=== PATIENT | female | born 1940 | race African-American/Black ===

== ENCOUNTER 2016-09-21 17:48 | Emergency (ER) | payer OTHER ==
[~2016-09-21] VITALS: Ht 142.2 cm; Wt 60.8 kg
--- NOTE | ~2016-09-21 | EKG ---
[place] [address] [facility] [address] [place] [address] ELECTROCARDIOGRAM REPORT Name: ROSE MARYZOYA FOSTEREN [facility] [id number] Admission: 09/21/16 Attend Phys: Discharge: 09/22/16 Date of : 38 Report #: [id number] THIS REPORT FOR: //name// [facility] ED Test Date: 2016-09-21 Test Time: 18:46:57 Pat Name: ZOYA BAZZI Department: Room: Gender: F Cardiovascular Specialist: Nile HUGHES : 1940 Requested By: Bhavik Church Order Number: [id number] MD: Tray Garcia Measurements Intervals [place] Rate: 116 P: -3 ME: 144 QRS: -31 QRSD: 73 T: -23 QT: 335 QTc: 466 Interpretive Statements Sinus tachycardia Atrial premature complexes Inferior infarct, age indeterminate Compared to ECG 07/21/2014 14:43:16 Atrial premature complex(es) now present Electronically Signed On 09-22-2016 15:09:23 CDT by Tray Garcia [email or web address] <ELECTRONICALLY SIGNED> By: Tray Garcia MD, [facility] 09/22/16 1509 1846 184 Tray Garcia MD, [facility] /EPI
[~2016-09-21 17:48] MED LIST: AMLODIPINE BESIL1 GM; DETROL LA2 MG PO; DETROL1 MG; GLYBURIDE 1.21.25 M1; HYDRALAZINE 2525 MG PO; HYDROCODONE-AP1 EAC6 PO; LANTUS SOL100 UNIT/1; LANTUS100 UNIT/M SUBQ; METFORMIN HCL500 MG PO; METOPROLOL SUCC50 MG; MOBIC15 MG; NEURONTIN 300300 M1 PO; NORVASC10 MG PO; PROTONIX40 M1 PO; TRAMADOL 50 MG50 MG PO
[2016-09-21 19:22] LABS: URINE BLOOD TRACE (Negative); URINE COLOR YELLOW; URINE GLUCOSE-RANDOM* NEGATIVE (Negative); URINE KETONES 1+ (Negative); URINE NITRITE POSITIVE (Negative); URINE PROTEIN (DIPSTICK) 1+ (Negative); URINE SPECIFIC GRAVITY 1.025 (1.003-1.035); URINE UROBILINOGEN 0.2 E.U./dl (0.2-1.0)
[2016-09-21 19:23] LABS: ICTOTEST (BILI CONFIRMATORY) Negative (Negative); URINE BILIRUBIN NEGATIVE (Negative)
[2016-09-21 20:09] LABS: CASTS None Seen /LPF (None Seen); CRYSTALS None Seen /LPF (None Seen); SQUAMOUS 0-3 Few /LPF (0-3)
[2016-09-21 20:10] LABS: BACTERIA >30 Many /HPF (None Seen); URINE RBC 0-2 Rare /HPF (0-2); URINE WBC 6-15 Few /HPF (0-5)
[2016-09-21 20:47] LABS: ABSOLUTE NEUTROPHILS 5.5 thou/uL (1.4-8.2); BASOPHILS 0.9 % (0.0-2.0); HEMATOCRIT 43.2 % (37.0-47.0); LYMPHOCYTES 19.9 % (24.0-44.0); MCH 26.9 pg (26.0-34.0); MCHC 32.4 g/dL (28.0-37.0); MCV 83.1 fL (80.0-100.0); MONOCYTES 11.7 % (1.0-8.0); PLATELET COUNT 318 thou/uL (150-400); POLYS 66.5 % (36.0-66.0); RDW 14.9 % (10.5-14.5); WBC 8.3 thou/uL (4.0-11.0)
[2016-09-21 20:49] LABS: MANUAL DIFF NO
[2016-09-21 20:57] LABS: ANION GAP 15 mmol/L (7-16); BUN 18 mg/dL (7-18); CALCIUM 10.2 mg/dL (8.5-10.1); CHLORIDE 104 mmol/L (98-107); CO2 21 mmol/L (21-32); CREATININE 0.7 mg/dL (0.6-1.0); GLUCOSE 96 mg/dL (74-106); POTASSIUM 4.4 mmol/L (3.5-5.1); SODIUM 140 mmol/L (136-145)
[2016-09-21 21:01] LABS: ALBUMIN 3.3 g/dL (3.4-5.0); ALKALINE PHOSPHATASE 105 U/L (46-116); NT-PRO BRAIN NAT PEPTIDE 276 pg/mL (<300); SGOT 32 U/L (15-37); SGPT 27 U/L (30-65); TOTAL BILIRUBIN 1.2 mg/dL (<0.1-1.0); TROPONIN-I < 0.04 ng/mL (<0.04-0.07)
[2016-09-21] MEDS ORDERED: KEFLEX500 MG PO (22:33)
== END 2016-09-22 00:06 | disposition home or self-care (01) ==
LOC: ER 17:48
PROVIDERS: Physician Assistant
DX: M54.6 Pain in thoracic spine (principal); M25.559 Pain in unspecified hip; N39.0 Urinary tract infection, site not specified; R94.6 Abnormal results of thyroid function studies; E11.9 Type 2 diabetes mellitus without complications; I10 Essential (primary) hypertension; M19.90 Unspecified osteoarthritis, unspecified site; Z90.89 Acquired absence of other organs; Z90.49 Acquired absence of other specified parts of digestive tract

== ENCOUNTER 2017-04-11 14:28 | Inpatient (IN) | payer OTHER ==
[~2017-04-11] VITALS: Ht 142.2 cm; Wt 62.7 kg
--- NOTE | ~2017-04-11 | HC ---
[facility] [place] [address] CONSULTATION Name: ZOYA BAZZI Room #: 503-P [facility] IN M.R.#: [id number] Admission: 04/11/17 Attend Phys: Jose G Flores MD Discharge: Date of : 39 Report #: [id number] THIS REPORT FOR: //name// CC: Jose G Flores [facility] unknown DATE OF SERVICE: 04/11/2017 HISTORY OF PRESENT ILLNESS: This is a 76-year-old -[place] female who had a fall at home transfer from wheelchair to the commode. She fell and hit her forehead. She notes that she "saw stars," but did not lose consciousness. She was on the floor for approximately 3 hours. She was diagnosed with closed head injury secondary to a fall and mild rhabdomyolysis. She has premorbid severe lower extremity neuropathy and is in the process of a neurosurgery workup as an outpatient. She has had an MRI of her lumbar spine and is scheduled to see a neurosurgeon on 04/28. She is premorbidly wheelchair bound, uses a manual wheelchair and has had a power wheelchair on order for the last 2 years. She had premorbidly been independent with wheelchair transfers up until admission. PAST MEDICAL HISTORY: As noted above. She has a history of diabetes mellitus, hypertension, urinary incontinence for which she uses pads and bilateral total knee replacements. MEDICATIONS: Please see the full medication listing. ALLERGIES: No known drug allergies. HABITS: No history of tobacco or alcohol abuse. REVIEW OF SYSTEMS: No current complaints of chest pain, shortness of breath or abdominal discomfort. She has urinary incontinence, which is premorbid as noted above. She has significant lower extremity numbness and tingling and painful dysesthesias and has been on Lyrica. She also notes some symptoms involving her hands. PHYSICAL EXAMINATION: GENERAL: A 76-year-old -[place]ian female in no obvious distress. VITAL SIGNS: Temperature is 98.7, pulse 108, respirations 16, blood pressure 131/60. NEUROLOGIC: She is alert. Facies are symmetric. She appears to be a good historian. EXTREMITIES: Functional range of motion of both upper extremities. Strength is grade 4-/5. 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 DTRs are 1. In her lower extremities, bilateral knee incisions are well healed. She is able to adduct her thighs, but was unable to abduct for me. Hip flexor strength is probably 3+ to 4-. Knee extensor is 4-. Knee flexor is 4-. Ankle dorsiflexion is 3+. [address] [address] CONSULTATION Name: ZOYA BAZZI Room #: 503-P [facility] IN M.R.#: [id number] Admission: 04/11/17 Attend Phys: Jose G Flores MD Discharge: Date of : 39 Report #: [id number] Ankle eversion is less than antigravity. Her ankles appeared to be rather floppy with decreased tone. DTRs are basically trace to zero both lower extremities. She has decreased sensation only some distal in her lower extremities, otherwise it appeared to be reasonably intact to simultaneous stimulation. As far as her function, she is mod assist supine to sit. Sit to stand is min assist. Her legs seem to cross some with standing. ASSESSMENT: A 76-year-old female with the following problems: 1. Closed head injury secondary to a fall. 2. Lower extremity paraparesis. She is currently undergoing outpatient neurosurgery evaluation. 3. Mild rhabdomyolysis. 4. Premorbid severe peripheral neuropathy. 5. Premorbid wheelchair-bound status, was independent with transfers. 6. Hypertension. 7. Osteoarthritis with prior bilateral total knee replacements. PLAN: The patient is a candidate for an acute in-hospital inpatient rehabilitation stay. From a preadmission screening perspective: 1. Prior level of function is well delineated above. 2. Expect level of improvement would be for the patient to become modified independent with transfers, mobility and ADLs that she can hopefully return back to her prior living situation. Would anticipate length of stay of probably at least 2 weeks. 3. Evaluation of the patient's risk for clinical complications. She does have the multiple medical comorbidities as noted above. 4. Condition that caused the need for rehabilitation would be the closed head injury and lower extremity paraparesis as well as the peripheral neuropathy. 5. Treatments needed include PT and OT 1-1/2 hours per day each five days a week throughout the duration of the acute inpatient rehabilitation stay. 6. Anticipated discharge destination would be back to the home setting. She notes her granddaughter can check in on her every other day. 7. Anticipated post-discharge treatments would include home healthcare therapies. 8. The patient meets diagnostic criteria for an acute in-hospital inpatient rehabilitation stay. She meets medical necessity criteria. She does have the tolerance for an acute rehab therapy stay and has appropriate discharge goals back to the home setting. <ELECTRONICALLY SIGNED> By: Jose G Flores MD 04/17/17 1456 1212 0418 Jose G Flores MD /[facility]
--- NOTE | ~2017-04-11 | H ---
[facility] [place] [address] HISTORY AND PHYSICAL Name: ZOYA BAZZI Room #: 503-P ADM IN M.R.#: [id number] Admission: 04/11/17 Attend Phys: Jose G Flores MD Discharge: Date of : 39 Report #: [id number] THIS REPORT FOR: //name// CC: Jose G Flores [facility] unknown DATE OF SERVICE: 04/11/2017 HISTORY OF PRESENT ILLNESS: The patient is a 76-year-old -[place] female who had a fall at home transferring from her wheelchair to the commode. She fell and hit her forehead. She noted that she "saw stars," but did not lose consciousness. She was on the floor for approximately 3 hours. She was diagnosed with a closed head injury secondary to the fall and rhabdomyolysis. She has premorbid severe lower extremity neuropathy and is in the process of a neurosurgery workup as an outpatient. She has had an MRI of her lumbar spine and is scheduled to see a neurosurgeon on 04/28/2017. She is premorbidly wheelchair bound, uses a manual wheelchair and has had a power wheelchair on order for the last 2 years. She had been premorbidly independent with wheelchair transfers up until her acute care hospital admission. PAST MEDICAL HISTORY: As noted above. She has a history of diabetes mellitus, hypertension, urinary incontinence for which she uses pads, and bilateral total knee replacements. MEDICATIONS: Please see the full medication listing. Each of these were individually reconciled upon admission. They include vitamins, herbals and supplementation. ALLERGIES: No known drug allergies. HABITS: No history of tobacco or alcohol abuse. REVIEW OF SYSTEMS: No complaints of chest pain, shortness of breath or abdominal discomfort. She has urinary incontinence which is premorbid. She had lower extremity numbness and tingling and painful dysesthesias and has been on Lyrica. She has some symptoms of weakness involving her hands as well. PHYSICAL EXAMINATION: GENERAL: A 76-year-old -[place] female in no obvious distress. VITAL SIGNS: Last recorded temperature 98.2, pulse 96, respirations 16, blood pressure 108/69. The patient was seen earlier. Sleepy, but did arouse. HEENT: Facies were symmetric. CHEST: Sounded clear to auscultation. CARDIOVASCULAR: Regular rate and rhythm. ABDOMEN: Bowel sounds positive, nontender. GENITOURINARY AND RECTAL: Deferred. NEUROLOGIC: She has functional range of motion of both upper extremities. Strength is grade 4-/5. DTRs are 1. LOWER EXTREMITIES: Bilateral knee incisions are well healed. Again, she can adduct her thighs but was unable to abduct. [facility] [address] [place] [address] HISTORY AND PHYSICAL Name: ZOYA BAZZI Room #: 503-P ADM IN M.R.#: [id number] Admission: 04/11/17 Attend Phys: Jose G Flores MD Discharge: Date of : 39 Report #: [id number] hip flexor strength is probably 3+ to 4-. Knee extension is 4- Knee flexor is 4-. Ankle dorsiflexion is 3+. DTRs basically trace both lower extremities. I did not assess her sensation today as she was just seen yesterday. She has been needing mod assist with supine to sit transfers with sit to stand minimal assist. She has had crossing of her legs or scissoring with attempted standing. ASSESSMENT: A 76-year-old -[place] female with the following problem list: 1. Closed head injury secondary to a fall. 2. Lower extremity paraparesis. She is currently undergoing outpatient neurosurgery evaluation. 3. Mild rhabdomyolysis. 4. Premorbid severe peripheral neuropathy. 5. Morbid wheelchair bound status. She had independent with transfers. 6. Hypertension. 7. Osteoarthritis with prior bilateral total knee replacements. PLAN: The patient is admitted for acute in-hospital inpatient rehabilitation. From a postadmission physician evaluation perspective, there are no relevant changes since the preadmission screening. Please see the above review of prior and current medical and functional conditions and comorbidities. Please see the patient's previous and current functional status. As far as risk of complications, the patient has multiple medical comorbidities as noted above. Initial plan of care involves the interdisciplinary acute inpatient rehabilitation program with the goal of maximizing the patient's functional independence, so she can hopefully return back to her prior living situation. Measurable functional goals would include for the patient to become independent with basic transfers with achieving her prior level of functional mobility and ADLs, so she can return back to the home setting. Potential barriers would include her decreased functional status and medical comorbidities as noted above. The goal also will be for her to improve as far as her overall cognition with a closed head injury, so that she can return back to the home setting. This will need to be further assessed as far as severity of the head injury with speech therapy and psychology involvement. The patient meets diagnostic criteria for an acute in-hospital inpatient rehabilitation stay. She meets medical necessity criteria and has the tolerance [address] [address] HISTORY AND PHYSICAL Name: ZOYA BAZZI Room #: 503-P ADM IN M.R.#: [id number] Admission: 04/11/17 Attend Phys: Jose G Flores MD Discharge: Date of : 39 Report #: [id number] for an acute in-hospital inpatient rehabilitation stay. She does have appropriate discharge goals back to the home setting. <ELECTRONICALLY SIGNED> By: Jose G Flores MD 04/17/17 1456 1136 1213 Jose G Flores MD /[facility]
--- NOTE | ~2017-04-11 | HC ---
[facility] [place] [address] [place] [address] CONSULTATION Name: ZOYA BAZZI Room #: 503-P ADM IN M.R.#: [id number] Admission: 04/11/17 Attend Phys: Jose G Flores MD Discharge: Date of : 39 Report #: [id number] THIS REPORT FOR: //name// CC: Jose G Flores [facility] unknown DATE OF SERVICE: 04/13/2017 ATTENDING PHYSICIAN: Jose G Flores MD TOWEL STRETCHER: Mina Foster PhD CLINICAL PRESENTATION: The patient is a 76-year-old female admitted to the rehab unit at [facility] for comprehensive inpatient rehabilitation program to improve functional mobility, activities of daily living and self-care and mental status secondary to a closed head injury with lower extremity paraparesis and peripheral neuropathy. She is reported to have fallen at her home and striking her head on 04/10/2017. She was getting up to go to the bathroom at 3:00 a.m. when she attempted to transfer herself and subsequently falling and striking the side of her head. She carries admitting diagnosis of closed head injury secondary to a fall, lower extremity paraparesis, mild rhabdomyolysis, premorbid severe peripheral neuropathy, wheelchair bound, hypertension and osteoarthritis. A complete description of her medical condition and history can be found in her medical records. Neuropsychological consultation was requested to provide assistance in the assessment of cognitive and emotional status and to provide recommendations and services. Prior to this admission, she was living by herself in her own home. She describes her legs as being unable to support her weight. They seem to cross and lock underneath her. She discontinued driving in 2013 because of difficulty with ambulation. The patient has 3 children. She was about 8 years ago. She is a high school graduate with 2-year college degree. 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 TECHNIQUES UTILIZED: Clinical interview, review of medical records, staff consultation and behavioral observation, mini-mental status exam 2 standard version, the NAB judgment test, calibrated ideational fluency assessment (verbal fluency) and clock drawing. EXAMINATION FINDINGS: The patient was alert and cooperative with the assessment. She accurately described events surrounding her admission. There is no evidence of aphasia. Her thoughts are logical and goal oriented. There is no evidence of thought disorder. She does not report auditory or visual hallucinations. She describes primarily difficulty with word finding. She does [facility] [address] [place] [address] CONSULTATION Name: ZOYA BAZZI Room #: 503-P [facility] IN M.R.#: [id number] Admission: 04/11/17 Attend Phys: Jose G Flores MD Discharge: Date of : 39 Report #: [id number] not report difficulty with sleep, appetite, subjective anxiety, depression or difficulty with memory. Her personality is pleasant and personable. Performance on the MMSE 2 brief version was in the borderline range with a raw score 12, T score 29, percentile rank at 2. She was 3/3 for initial registration, 5/5 for orientation to time, 4/[address] and 0/3 for immediate recall of 3 items after a brief time delay and distraction. Her performance on the MMSE 2 standard version was extremely low with a raw score of 20, T score 24 and percentile rank of less than 1. She was 0/5 for serial 7's, 2/2 for naming, 1/1 for repetition, 3/3 for auditory comprehension. She could read and follow a single command. The patient was able to write a sentence. She could not copy a simple geometric design. Performance on the NAB judgment test was extremely low with a raw score of 10/20. Difficulty with executive functioning is suggested by poor performance in practical problem solving and judgment. Letter fluency was within normal limits with a raw score of 21, T score of 44, percentile rank at 27. Category fluency was in the borderline range with a raw score of 28, T score 36, percentile rank of 8. Overall, total fluency was in the mild to moderate range of impairment with a raw score of 49, T score of 34, percentile rank of 5. Deficits in category fluency suggest dysfunction within the medial temporal lobe. Overall, verbal fluency deficits often indicate executive dysfunction. DIAGNOSTIC IMPRESSION: Neurocognitive Disorder, unspecified, without behavior disorder, - extent to be determined likely in the mild to moderate range RECOMMENDATIONS: The patient will require assistance in the management of medical, financial and nutrition at this time. A followup neuropsychological evaluation may be of benefit upon stabilization of her condition and return home. However, at this time, increased assistance will be necessary to maintain safety. The use of a memory and orientation book and assistance in developing a structure and method for problem solving will be of benefit. Family education into cognitive deficits is indicated. Her daughter should be informed of current cognitive difficulty in order to maintain a safe environment upon her return home. Thank you very much for allowing me to provide the consultation on this patient. <ELECTRONICALLY SIGNED> By: Mina Foster, PhD 04/19/17 1414 1418 0864 Mina Foster, PhD /nt
--- NOTE | ~2017-04-11 | PLAN ---
[facility] [place] [address] REHAB UNIT PLAN OF CARE Name: ZOYA BAZZI Room #: 503-P ADM IN M.R.#: [id number] Admission: 04/11/17 Attend Phys: Jose G Flores MD Discharge: Date of : 39 Report #: [id number] THIS REPORT FOR: //name// CC: Jose G Flores [facility] unknown DATE OF SERVICE: 04/14/2017 SUBJECTIVE: The patient was seen back today in followup. She is in no distress. No focal calf swelling. Last recorded temperature is 98.2, pulse 97, respirations 19, blood pressure 142/57. Lower extremity strength is unchanged, although she had better bilateral hip abduction, grade 3+/4- for me today. Her transfers have been max assist. She has taken five steps in the parallel bars. Lower body dressing is min assist. She has mild comprehensive deficits. ASSESSMENT: 1. Closed head injury secondary to fall. 2. Lower extremity paraparesis. She does have a prior history of severe lumbar spinal stenosis and is to be seeing a neurosurgeon as an outpatient. 3. Mild rhabdomyolysis. 4. Premorbid severe peripheral neuropathy. 5. Premorbid wheelchair bound status. 6. Hypertension. 7. Osteoarthritis with prior bilateral total knee replacements. PLAN: The overall plan of care is based on the preadmission screen, post-admission physician evaluation and information garnered from therapy assessments. 1. Estimated length of stay is at least 1-2 weeks, likely longer as needed. 2. Medical prognosis is reasonably good. 3. Anticipated interventions includes the interdisciplinary acute inpatient rehabilitation program with goal of maximizing the patient's functional independence, so that she can hopefully return back to her prior living situation. 4. Anticipated functional outcomes would be for the patient to become modified independent with transfers and mobility issues and ADLs as well as cognition, so she can return back to the home setting. 5. Discharge destination would be back to the home setting where she has been living in an apartment alone. There is a granddaughter who is involved. 6. Expected therapy by discipline includes PT, OT and speech, 1 hour per day each five days a week throughout the duration at the acute inpatient rehabilitation stay. The goal is to hopefully improve her overall functional independence with transfers and mobility issues improve her cognition and hopefully unable her to be able to return back to the home setting. [place] [address] REHAB UNIT PLAN OF CARE Name: ZOYA BAZZI Room #: 503-P [facility] IN .R.#: [id number] Admission: 04/11/17 Attend Phys: Jose G Flores MD Discharge: Date of : 39 Report #: [id number] assist as far as her cognitive issues. She is to continue in her current therapy program. <ELECTRONICALLY SIGNED> By: Jose G Flores MD 04/17/17 1456 0906 2217 Jose G Flores MD /[facility]
[~2017-04-11 14:28] MED LIST changes: +KEFLEX500 MG PO
[2017-04-11 16:16] VITALS: BP 108/69
[2017-04-11 20:30] VITALS: BP 111/53
[2017-04-12 03:25] LABS: HEMATOCRIT 31.8 % (37.0-47.0); HEMOGLOBIN 10.1 gm/dL (12.0-15.0); MCH 26.7 pg (26.0-34.0); MCHC 31.8 g/dL (28.0-37.0); RBC 3.79 mil/uL (4.20-5.00); RDW 14.6 % (10.5-14.5); WBC 5.2 thou/uL (4.0-11.0)
[2017-04-12 03:33] LABS: CALCIUM 9.9 mg/dL (8.5-10.1); CREATININE 0.6 mg/dL (0.6-1.0); POTASSIUM 3.8 mmol/L (3.5-5.1)
[2017-04-12 07:15] VITALS: BP 119/73
[2017-04-12 20:10] VITALS: BP 115/67
[2017-04-13 09:34] VITALS: BP 109/62
[2017-04-13] MEDS ORDERED: SYNTHROID100 MCG PO (19:09)
[2017-04-13 19:55] VITALS: BP 142/57
[2017-04-14 08:30] VITALS: BP 115/62
[2017-04-14 20:08] VITALS: BP 111/53
[2017-04-15 06:47] LABS: ABSOLUTE NEUTROPHILS 4.8 thou/uL (1.4-8.2); BASOPHILS 0.7 % (0.0-2.0); HEMATOCRIT 31.7 % (37.0-47.0); LYMPHOCYTES 18.8 % (24.0-44.0); MCH 26.7 pg (26.0-34.0); MCHC 31.6 g/dL (28.0-37.0); MCV 84.4 fL (80.0-100.0); PLATELET COUNT 237 thou/uL (150-400); POLYS 68.5 % (36.0-66.0); RBC 3.75 mil/uL (4.20-5.00); RDW 14.7 % (10.5-14.5)
[2017-04-15 06:48] LABS: MANUAL DIFF NO
[2017-04-15 06:57] LABS: ALBUMIN 2.5 g/dL (3.4-5.0); CALCIUM 9.9 mg/dL (8.5-10.1); CREATININE 0.6 mg/dL (0.6-1.0); MAGNESIUM 1.6 mg/dL (1.8-2.4); POTASSIUM 3.7 mmol/L (3.5-5.1); TOTAL BILIRUBIN 0.4 mg/dL (<0.1-1.0); TOTAL PROTEIN 6.4 g/dL (6.4-8.2)
[2017-04-15 14:28] VITALS: BP 112/76
[2017-04-15 19:45] VITALS: BP 104/61
[2017-04-16 07:30] VITALS: BP 105/58
[2017-04-16 20:05] VITALS: BP 108/60
[2017-04-17 08:15] VITALS: BP 137/72
[2017-04-17 19:50] VITALS: BP 120/82
[2017-04-18 07:37] VITALS: BP 115/74
[2017-04-18 19:48] VITALS: BP 118/72
[2017-04-19 07:30] VITALS: BP 124/80
[2017-04-19 20:26] VITALS: BP 95/50
[2017-04-20 19:57] VITALS: BP 99/61
[2017-04-21 08:00] VITALS: BP 92/55
[2017-04-21 19:30] VITALS: BP 100/57
[2017-04-22 08:00] VITALS: BP 125/83
[2017-04-22 20:05] VITALS: BP 103/71
[2017-04-23 08:42] VITALS: BP 109/62
[2017-04-23 15:46] VITALS: BP 109/62
[2017-04-23 16:13] VITALS: BP 109/62
[2017-04-23 19:29] VITALS: BP 115/72
[2017-04-24 08:15] VITALS: BP 106/56
[2017-04-24 19:30] VITALS: BP 120/58
[2017-04-25 07:30] VITALS: BP 119/65
[2017-04-25] MEDS ORDERED: ZANAFLEX2 MG PO (09:37)
[2017-04-25] MEDS ORDERED: TRAMADOL 50 MG50 MG PO (09:37)
[2017-04-25] MEDS ORDERED: LYRICA 50 MG50 MG PO (09:38)
[2017-04-25 11:14] VITALS: BP 109/62
[2017-04-25 11:37] VITALS: BP 109/62
[2017-04-25 13:42] VITALS: BP 109/62
== END 2017-04-25 15:00 | disposition home health service (06) | DRG 914 ==
PROVIDERS: Nurse Practitioner; Physical Medicine & Rehabilitation
DX: S09.90XA Unspecified injury of head, initial encounter (principal); M62.82 Rhabdomyolysis; G82.20 Paraplegia, unspecified; I10 Essential (primary) hypertension; Z96.653 Presence of artificial knee joint, bilateral; R41.9 Unspecified symptoms and signs involving cognitive functions and awareness; E11.51 Type 2 diabetes mellitus with diabetic peripheral angiopathy without gangrene; W18.39XA Other fall on same level, initial encounter; E03.9 Hypothyroidism, unspecified; Z66 Do not resuscitate; H40.9 Unspecified glaucoma; R53.81 Other malaise; K59.00 Constipation, unspecified; M48.061 Spinal stenosis, lumbar region without neurogenic claudication; E53.8 Deficiency of other specified B group vitamins; M62.838 Other muscle spasm; Y93.89 Activity, other specified; Y92.098 Other place in other non-institutional residence as the place of occurrence of the external cause; Z99.3 Dependence on wheelchair; Y99.8 Other external cause status
CPT/HCPCS: 10112

== ENCOUNTER → 2017-06-05 | Outpatient (CLI) | payer OTHER ==
[~2017-06-05] MED LIST changes: +A THRU Z SELEC1 EAC6 PO; +ACEROLA C500 MG PO; +ASPIRIN325 PO; +B-12500 MCG PO; +BACLOFEN 10MG T10 MG PO; +BACTRIM DS TAB1 EACH PO; +CIPRO500 MG PO; +COLACE100 MG PO; +CYMBALTA30 MG PO; +DIFLUCAN150 MG PO; +ENOXAPARIN40 MG/0.1 SUBQ; +ERGOCALCIF50000 UNIT PO; +IRON325 PO; +JUVEN PACKET1 EAC1 PO; +KEFLEX500 M1 PO; +LEVEMIR SUBQ; +LIORESAL 10 MG10 MG PO; +LOPRESSOR25 PO; +LOPRESSOR50 PO; +LYRICA 50 MG50 MG PO; +MIRALAX17 GM PO; +OXYCODONE HCL 55 MG PO; +PERCOCET 7.5-31 EACH PO; +SENNA8.6 MG PO; +SYNTHROID100 MC1 PO; +TIMOPTIC5 ML OP; +TIMOPTIC5 ML OPHTHALMIC; +TYLENOL EXTRA500 MG PO; +VITAMIN D3400 UNIT PO; +VITAMINC500 PO; +ZANAFLEX2 MG PO; +ZINC50 M1 PO; +ZOSYN 3.3753.375 GM IV
== END ==
LOC: SEN 10:07
DX: G62.89 Other specified polyneuropathies (principal); I10 Essential (primary) hypertension; E11.9 Type 2 diabetes mellitus without complications; N39.3 Stress incontinence (female) (male)

== ENCOUNTER 2017-08-12 12:30 | Inpatient (IN) | payer OTHER ==
[~2017-08-12] VITALS: Ht 154.9 cm; Wt 56.7 kg
--- NOTE | ~2017-08-12 | HC ---
[facility] [place] [address] CONSULTATION Name: ZOYA BAZZI Room #: 402-P [facility] IN M.R.#: [id number] Admission: 08/12/17 Attend Phys: Hoang Rollins MD Discharge: Date of : 39 Report #: [id number] THIS REPORT FOR: //name// CC: Olegario Rollins TYPE OF REPORT: Infectious diseases consultation. REASON FOR CONSULTATION: I was asked to evaluate concerning sacral decubitus infection and urinary tract infection. HISTORY OF PRESENT ILLNESS: The patient was a 76-year old, admitted to the Emergency Room on 08/12/2017 with increasing pain in her sacral region. She had undergone a cervical fusion on 07/17/2017. She had difficulty urinating and was undergoing rehabilitation [facility]. She has had progressive injury to her coccyx that required surgical debridement today. Dr. James Reddy performed and excisional debridement of necrotic skin, subcutaneous soft tissue down to the sacral bone. No intraoperative complications were noted. She has remained on IV antibiotic therapy. Cultures from the buttock wound have revealed Pseudomonas aeruginosa as well as mixed tika. The pseudomonas was sensitive to all drugs tested except for aztreonam. Her urine culture revealed E. coli that was resistant to ampicillin and sulbactam, ciprofloxacin, gentamicin and Bactrim. Her antibiotic therapy has included ceftriaxone and was started on Zosyn today. REVIEW OF SYSTEMS: Notes no fever, chills or sweats. Her Godfrey catheter has been removed, but she has poor sensation when she micturates. No nausea, vomiting or diarrhea. No cough or sputum production. No other skin wounds identified. ALLERGIES: None known. MEDICATIONS: As noted on JUL, including ceftriaxone and Zosyn. PAST MEDICAL HISTORY: Coronary artery disease and hypertension. FAMILY HISTORY: Noncontributory. SOCIAL HISTORY: Nonsmoker. No significant alcohol intake. PAST SURGICAL HISTORY: She has also had bilateral total knee arthroplasties, cholecystectomy, tonsillectomy and diabetes. PHYSICAL EXAMINATION: VITAL SIGNS: Afebrile and hemodynamically stable. GENERAL: She was alert and cooperative and pleasant, in no acute distress. HEENT: Unremarkable. [facility] [address] [place] [address] CONSULTATION Name: ZOYA BAZZI Room #: 402-P [facility] IN M.R.#: [id number] Admission: 08/12/17 Attend Phys: Hoang Rollins MD Discharge: Date of : 39 Report #: [id number] NECK: Incision well approximated with no drainage or erythema or fluctuance. LUNGS: Clear. HEART: Regular, without murmur. ABDOMEN: Soft and nontender. No hepatosplenomegaly or mass. Large sacral wound with surgical packing in place. EXTREMITIES: Otherwise unremarkable. LABORATORY STUDIES: Sodium 138, potassium 3.4, bicarbonate 24 and creatinine 0.5. Hemoglobin 8.9; WBC 10.1 and platelet count 449,000. Urinalysis, few wbc's, many bacteria from a voided specimen. RADIOLOGICAL DATA: MRI of the pelvis showed no evidence of osteomyelitis. Chest x-ray unremarkable. IMPRESSION: A 76-year old with polymicrobial sacral wound infection with pseudomonas as a predominant organism. Also, has Escherichia coli cystitis. This is following cervical fusion. RECOMMENDATIONS: Recommend continuing IV antibiotic therapy with Zosyn to cover both organisms as sacral tissue begins to heal. We will check postvoid residuals to ensure adequate emptying. Follow up laboratory studies first of the week. <ELECTRONICALLY SIGNED> By: Stewart Goel MD 08/18/17 1409 2106 0145 Stewart Goel MD /nt
--- NOTE | ~2017-08-12 | S ---
[facility] [place] [address] SURGICAL PATH RPT PROCEDURE Name: SUSANA BAZZI Room #: 402-P ADM IN M.R.#: [id number] Admission: 08/12/17 Date of : 38 Discharge: Report #: [id number] Path Case #: [id number] PATHOLOGY REPORT COLLECTION DATE: 08/15/2017 RECEIVED DATE: 08/15/2017 SUBMITTING PHYS: Dr. James Reddy, OTHER PHYS: Dr. Hoang Rollins SPECIMEN(S) RECEIVED: A.Sacral tissue B.Sacral bone * * * * * * * * * * * * FINAL DIAGNOSIS: A. "Sacral tissue", debridement: - Skin and subcutaneous tissue with acute and chronic inflammation, necrosis, granulation tissue, and fat necrosis. B. "Sacral bone", debridement: - Fibroadipose connective tissue, periosteum, articular cartilage and scant minimal decalcified bone showing reactive and degenerative changes with focal acute inflammation. (See comment). (CLW:rossi; 08/19/2017) COMMENT: On specimen B, minimal decalcified bone is present for evaluation. While focal acute inflammation is seen; no acute osteomyelitis is identified. Clinical and radiographic correlation is required. (CLW:rossi; 08/19/2017) PATHOLOGIST: Ileana Bonilla M.D. REPORT ELECTRONICALLY SIGNED BY: Ileana Bonilla M.D. DATE/TIME: 08/19/2017 17:49 * * * * * * * * * * * * GROSS PATHOLOGY: A. Received in formalin labeled "Susana Bazzi, sacral tissue" is a 7.7 x 7.5 x 3.3 cm ovoid excision of skin and yellow roche deep soft tissue. Present on the skin surface is a roche-yellow ulcerated lesion which measures 5.3 x 5.1 cm and has a depth of 3.0 cm. A thin rim of uninvolved roche-brown skin is identified on the circumference of the specimen. A sales representative consultant section of the specimen is submitted in cassette A1. B. Received in formalin labeled "Susana Bazzi, sacral bone" are two portions of roche-white bony tissue and attached roche-white membranous tissue which measure in aggregate 1.5 x 1.2 x 0.3 cm. [facility] [place] [address] SURGICAL PATH RPT PROCEDURE Name: SUSANA BAZZI Room #: 402-P ADM IN M.R.#: [id number] Admission: 08/12/17 Date of : 39 Discharge: Report #: [id number] Path Case #: [id number] specimen is submitted entirely without sectioning in cassette B1 following decalcification. ([facility] [place]; 08/17/2017) CLINICAL HISTORY: Sacral wound. INITIAL CPT CODE(S): A; 12454 B; 22616, 80882 Professional services performed by [facility] at [facility] [address] [place] [address] Technical services performed by [facility] at [address] [place] [address], [address], [place] [address]. [facility] [address] [place] [address] PHONE: [phone] DIRECTOR: Jose Enrique Romano M.D. * * * END OF REPORT * * *
--- NOTE | ~2017-08-12 | HC ---
[facility] [place] [address] CONSULTATION Name: ZOYA BAZZI Room #: 402-P [facility] IN M.R.#: [id number] Admission: 08/12/17 Attend Phys: Hoang Rollins MD Discharge: Date of : 39 Report #: [id number] THIS REPORT FOR: //name// CC: Olegario Rollins DATE OF SERVICE: 08/13/2017 HISTORY OF PRESENT ILLNESS: The patient is a 76-year-old -Nauruan female who has a prior history of lower extremity paraparesis, premorbid severe peripheral neuropathy premorbid wheelchair bound status, had been able to transfer with min assist. She was seen by Neurosurgery for an outpatient evaluation and ended up undergoing a cervical fusion on 07/17/2017. She went for a custodial facility care. Apparently developed decubitus ulcers over bilateral gluteal eye and also has had indwelling Godfrey catheterization placement. She was discharged home with her daughter, but home healthcare was concern with the situation and she ended up being admitted to [facility] with a urinary tract infection, sepsis. She has some initial encephalopathy, thought to be toxic metabolic related to the infection. She has bilateral gluteal decubitus ulcers unstageable and wound care is involved with excisional debridement. We are seeing her in rehabilitation medicine consultation. PAST MEDICAL HISTORY: Includes diabetes mellitus, hypertension, urinary incontinence for which she was using pads, although she was on the Godfrey catheter prior to this current admission. She has had bilateral total knee replacements. PAST SURGICAL HISTORY: Includes the cervical fusion as noted above. This apparently was done by Dr. Hubbard. MEDICATIONS: Please see the full medication listing. ALLERGIES: No known drug allergies. HABITS: No history of tobacco or alcohol abuse. SOCIAL HISTORY: She has her own apartment, but she most recently has been staying with her daughter in a house with a wheelchair accessibility. They were apparently going to get a hospital bed. Daughter does work during the day, however. She notes she has not been able to transfer. REVIEW OF SYSTEMS: No current complaints of chest pain or shortness of breath or abdominal discomfort. She has the distal lower extremity numbness with her peripheral neuropathy. Some frustration with her current status and notes "I just want to get well." [address] [address] CONSULTATION Name: ZOYA BAZZI Room #: 402-P [facility] IN .R.#: [id number] Admission: 08/12/17 Attend Phys: Hoang Rollins MD Discharge: Date of : 39 Report #: [id number] PHYSICAL EXAMINATION: GENERAL: Pleasant, small statured, thin 76-year-old -Nauruan female in no obvious distress. VITAL SIGNS: Last recorded temperature is 98.2, pulse 89, respirations 18, blood pressure 131/85. NEUROLOGIC: The patient is alert, pleasant, oriented. HEENT: Appeared to be benign. EXTREMITIES: She has weakness of both triceps, right is a grade 3+, left is grade 3+, elbow flexion is better at 3+ to 4-. Wrist strength is probably a grade 4 to 4-, DTRs are trace to 1. I did not examine her buttocks. LOWER EXTREMITIES: Bilateral knee incisions are well healed. There is no focal calf swelling. Her toes are all plantar flexed with inability to extend with bilateral ankle dorsiflexor weakness, probably a grade 3 to 3+. Proximal strength is grade 3+ to 4-. DTRs are trace. She does have decreased sensation in a stocking distribution. ASSESSMENT: A 76-year-old -Nauruan female with the following problem list: 1. Quadriparesis with recent cervical fusion 07/17/2017. 2. Urinary tract infection with indwelling Godfrey catheter. 3. Premorbid severe peripheral neuropathy. 4. Prior history of urinary incontinence preoperatively for which she was using pads. 5. Diabetes mellitus. 6. Hypertension. 7. Prior bilateral total knee replacements. 8. Bilateral gluteal unstageable ulcer, status post excisional debridement 08/13/2017. PLAN: We will need to see how she does in her therapies and be glad to follow along with you regarding rehab therapy issues. She is very motivated lady and I encouraged her to work with the therapists and we will be glad to follow along with you. <ELECTRONICALLY SIGNED> By: Jose G Flores MD 08/14/17 1124 1514 1745 Jose G Flores MD /PMT
[~2017-08-12 12:30] MED LIST changes: -A THRU Z SELEC1 EAC6 PO; -ACEROLA C500 MG PO; -ASPIRIN325 PO; -B-12500 MCG PO; -BACLOFEN 10MG T10 MG PO; -BACTRIM DS TAB1 EACH PO; -CIPRO500 MG PO; -COLACE100 MG PO; -CYMBALTA30 MG PO; -DIFLUCAN150 MG PO; -ENOXAPARIN40 MG/0.1 SUBQ; -ERGOCALCIF50000 UNIT PO; -IRON325 PO; -JUVEN PACKET1 EAC1 PO; -KEFLEX500 M1 PO; -LEVEMIR SUBQ; -LIORESAL 10 MG10 MG PO; -LOPRESSOR25 PO; -LOPRESSOR50 PO; -MIRALAX17 GM PO; -OXYCODONE HCL 55 MG PO; -PERCOCET 7.5-31 EACH PO; -SENNA8.6 MG PO; -TIMOPTIC5 ML OP; -TIMOPTIC5 ML OPHTHALMIC; -TYLENOL EXTRA500 MG PO; -VITAMIN D3400 UNIT PO; -VITAMINC500 PO; -ZINC50 M1 PO; -ZOSYN 3.3753.375 GM IV
[2017-08-12 12:33] VITALS: BP 106/63
[2017-08-12 13:03] LABS: URINE BILIRUBIN NEGATIVE (Negative); URINE BLOOD 1+ (Negative); URINE COLOR YELLOW; URINE GLUCOSE-RANDOM* NEGATIVE (Negative); URINE KETONES NEGATIVE (Negative); URINE LEUKOCYTES 1+ (Negative); URINE NITRITE POSITIVE (Negative); URINE PROTEIN (DIPSTICK) TRACE (Negative); URINE SPECIFIC GRAVITY 1.015 (1.005-1.035)
[2017-08-12 13:05] LABS: URINE CLARITY SL HAZY
[2017-08-12 13:11] LABS: ABSOLUTE NEUTROPHILS 7.8 thou/uL (1.4-8.2); BASOPHILS 0.9 % (0.0-2.0); HEMATOCRIT 32.4 % (37.0-47.0); HEMOGLOBIN 10.3 gm/dL (12.0-15.0); LYMPHOCYTES 11.9 % (24.0-44.0); MCH 24.5 pg (26.0-34.0); MCHC 31.7 g/dL (28.0-37.0); MCV 77.3 fL (80.0-100.0); MONOCYTES 11.4 % (1.0-8.0); PLATELET COUNT 546 thou/uL (150-400); POLYS 75.8 % (36.0-66.0); RDW 15.5 % (10.5-14.5); WBC 10.3 thou/uL (4.0-11.0)
[2017-08-12 13:14] LABS: SQUAMOUS 0-3 Few /LPF (0-3)
[2017-08-12 13:15] LABS: BACTERIA >30 Many /HPF (None Seen); CASTS None Seen /LPF (None Seen); CRYSTALS None Seen /LPF (None Seen); URINE RBC 0-2 Rare /HPF (0-2); URINE WBC 6-15 Few /HPF (0-5)
[2017-08-12 13:21] LABS: CALCIUM 10.6 mg/dL (8.5-10.1); CREATININE 0.5 mg/dL (0.6-1.0); POTASSIUM 4.1 mmol/L (3.5-5.1)
[2017-08-12 13:27] LABS: ALBUMIN 2.4 g/dL (3.4-5.0); DIRECT BILIRUBIN 0.1 mg/dL (<0.1-0.3); TOTAL BILIRUBIN 0.4 mg/dL (<0.1-1.0)
[2017-08-12 15:30] VITALS: BP 104/62
[2017-08-12 16:05] VITALS: BP 136/88
[2017-08-12 20:00] VITALS: BP 138/71
[2017-08-12] MEDS ORDERED: TIMOPTIC5 ML OP (20:26)
[2017-08-12] MEDS ORDERED: TIMOPTIC5 ML OPHTHALMIC (20:28)
[2017-08-12] MEDS ORDERED: LYRICA 50 MG50 MG PO (20:29)
[2017-08-12] MEDS ORDERED: PERCOCET 7.5-31 EACH PO (20:29)
[2017-08-13] VITALS: BP 129/74
[2017-08-13 04:00] VITALS: BP 133/70
[2017-08-13 06:04] LABS: HEMATOCRIT 30.1 % (37.0-47.0); HEMOGLOBIN 9.5 gm/dL (12.0-15.0); MCH 24.5 pg (26.0-34.0); MCHC 31.5 g/dL (28.0-37.0); MCV 77.7 fL (80.0-100.0); RBC 3.87 mil/uL (4.20-5.00); RDW 15.7 % (10.5-14.5); WBC 9.6 thou/uL (4.0-11.0)
[2017-08-13 06:29] LABS: CALCIUM 10.1 mg/dL (8.5-10.1); CREATININE 0.5 mg/dL (0.6-1.0); POTASSIUM 3.8 mmol/L (3.5-5.1)
[2017-08-13 08:44] VITALS: BP 131/85
[2017-08-13 16:00] VITALS: BP 121/75
[2017-08-13 19:58] VITALS: BP 132/72
[2017-08-13 23:48] VITALS: BP 153/79
[2017-08-14 04:00] VITALS: BP 131/82
[2017-08-14 06:06] LABS: CALCIUM 9.6 mg/dL (8.5-10.1); CREATININE 0.4 mg/dL (0.6-1.0)
[2017-08-14 07:00] VITALS: BP 120/73
[2017-08-14 07:06] LABS: HEMATOCRIT 28.4 % (37.0-47.0); HEMOGLOBIN 9.2 gm/dL (12.0-15.0); MCH 24.4 pg (26.0-34.0); MCHC 32.2 g/dL (28.0-37.0); MCV 75.7 fL (80.0-100.0); RBC 3.76 mil/uL (4.20-5.00); RDW 15.5 % (10.5-14.5); WBC 8.2 thou/uL (4.0-11.0)
[2017-08-14 15:20] VITALS: BP 109/66
[2017-08-14 20:00] VITALS: BP 112/74
[2017-08-15] VITALS (7 sets, daily range): BP systolic 100–134; BP diastolic 67–86
[2017-08-15 05:35] LABS: HEMATOCRIT 27.6 % (37.0-47.0); HEMOGLOBIN 8.9 gm/dL (12.0-15.0); MCH 24.8 pg (26.0-34.0); MCHC 32.1 g/dL (28.0-37.0); MCV 77.4 fL (80.0-100.0); RBC 3.57 mil/uL (4.20-5.00); RDW 15.8 % (10.5-14.5); WBC 10.1 thou/uL (4.0-11.0)
[2017-08-15 05:43] LABS: CALCIUM 9.3 mg/dL (8.5-10.1); CREATININE 0.5 mg/dL (0.6-1.0); POTASSIUM 3.4 mmol/L (3.5-5.1)
[2017-08-16 04:51] VITALS: BP 133/72
[2017-08-16 09:08] VITALS: BP 140/69
[2017-08-16 17:07] VITALS: BP 124/81
[2017-08-16 19:08] VITALS: BP 141/80
[2017-08-17 04:00] VITALS: BP 114/80
[2017-08-17 07:30] VITALS: BP 118/75
[2017-08-17 17:16] VITALS: BP 126/90
[2017-08-17 20:00] VITALS: BP 141/90
[2017-08-18 04:00] VITALS: BP 142/72
[2017-08-18 05:52] LABS: HEMATOCRIT 27.6 % (37.0-47.0); HEMOGLOBIN 8.6 gm/dL (12.0-15.0); MCHC 31.3 g/dL (28.0-37.0); MCV 76.6 fL (80.0-100.0); RBC 3.6 mil/uL (4.20-5.00); RDW 15.9 % (10.5-14.5); WBC 11.1 thou/uL (4.0-11.0)
[2017-08-18 06:12] LABS: CALCIUM 9.5 mg/dL (8.5-10.1); CREATININE 0.5 mg/dL (0.6-1.0); POTASSIUM 3.2 mmol/L (3.5-5.1)
[2017-08-18 08:31] VITALS: BP 125/74
[2017-08-18 18:13] VITALS: BP 104/65
[2017-08-18 20:00] VITALS: BP 116/89
[2017-08-19 05:11] VITALS: BP 138/98
[2017-08-19 05:55] LABS: HEMATOCRIT 26.1 % (37.0-47.0); HEMOGLOBIN 8.4 gm/dL (12.0-15.0); MCH 24.5 pg (26.0-34.0); MCHC 32.1 g/dL (28.0-37.0); MCV 76.4 fL (80.0-100.0); RBC 3.42 mil/uL (4.20-5.00); WBC 11.4 thou/uL (4.0-11.0)
[2017-08-19 06:14] LABS: CALCIUM 9.6 mg/dL (8.5-10.1); CREATININE 0.4 mg/dL (0.6-1.0)
[2017-08-19 06:15] LABS: POTASSIUM 4.5 mmol/L (3.5-5.1)
[2017-08-19 07:41] VITALS: BP 126/79
[2017-08-19 16:00] VITALS: BP 119/74
[2017-08-19 20:49] VITALS: BP 121/81
[2017-08-20 03:51] VITALS: BP 118/60
[2017-08-20 08:18] VITALS: BP 135/78
[2017-08-20 08:48] LABS: HEMATOCRIT 26.5 % (37.0-47.0); HEMOGLOBIN 8.6 gm/dL (12.0-15.0); MCH 24.2 pg (26.0-34.0); MCHC 32.3 g/dL (28.0-37.0); MCV 74.9 fL (80.0-100.0); RBC 3.54 mil/uL (4.20-5.00); RDW 15.5 % (10.5-14.5); WBC 11.9 thou/uL (4.0-11.0)
[2017-08-20 08:59] LABS: CALCIUM 9.8 mg/dL (8.5-10.1); CREATININE 0.4 mg/dL (0.6-1.0); MAGNESIUM 1.5 mg/dL (1.8-2.4); POTASSIUM 3.9 mmol/L (3.5-5.1)
[2017-08-20] MEDS ORDERED: ACEROLA C500 MG PO (10:43)
[2017-08-20] MEDS ORDERED: A THRU Z SELEC1 EAC6 PO (10:43)
[2017-08-20] MEDS ORDERED: ENOXAPARIN40 MG/0.1 SUBQ (10:44)
[2017-08-20] MEDS ORDERED: ZOSYN 3.3753.375 GM IV (14:10)
[2017-09-24] MEDS ORDERED: CIPRO500 MG PO (14:27)
[2017-09-24] MEDS ORDERED: DIFLUCAN150 MG PO (14:28)
[2017-09-24] MEDS ORDERED: BACLOFEN 10MG T10 MG PO (14:28)
== END 2017-08-20 16:22 | DRG 853 ==
LOC: ER 12:30 → 4N 14:24 → EROBS 14:24 → 4N 15:50
PROVIDERS: Hospitalist; Internal Medicine; Nurse Practitioner
PROC: 0QBS0ZZ Excision of Coccyx, Open Approach (ICD-10-PCS; principal; 2017-08-15)
PROC: 0QB10ZZ Excision of Sacrum, Open Approach (ICD-10-PCS; 2017-08-15)
DX: A41.9 Sepsis, unspecified organism (principal); G92 Toxic encephalopathy; G82.50 Quadriplegia, unspecified; E43 Unspecified severe protein-calorie malnutrition; G82.20 Paraplegia, unspecified; I10 Essential (primary) hypertension; M19.90 Unspecified osteoarthritis, unspecified site; Z96.653 Presence of artificial knee joint, bilateral; E11.40 Type 2 diabetes mellitus with diabetic neuropathy, unspecified; L98.419 Non-pressure chronic ulcer of buttock with unspecified severity; N30.90 Cystitis, unspecified without hematuria; B96.20 Unspecified Escherichia coli [E. coli] as the cause of diseases classified elsewhere; M48.02 Spinal stenosis, cervical region; L89.150 Pressure ulcer of sacral region, unstageable; E03.9 Hypothyroidism, unspecified; Z79.899 Other long term (current) drug therapy; Z68.23 Body mass index [BMI] 23.0-23.9, adult; Z90.49 Acquired absence of other specified parts of digestive tract
CPT/HCPCS: 10091; 50010; 50101; 50386; 50403; 62110; 62900; 70005

== ENCOUNTER 2017-09-16 15:14 | Emergency (ER) | payer OTHER ==
[~2017-09-16] VITALS: Ht 144.8 cm; Wt 58.1 kg
[~2017-09-16 15:14] MED LIST changes: +A THRU Z SELEC1 EAC6 PO; +ACEROLA C500 MG PO; +ENOXAPARIN40 MG/0.1 SUBQ; +PERCOCET 7.5-31 EACH PO; -SYNTHROID100 MC1 PO; +SYNTHROID100 MCG PO; +TIMOPTIC5 ML OP; +TIMOPTIC5 ML OPHTHALMIC; +ZOSYN 3.3753.375 GM IV
[2017-09-16 16:15] LABS: HEMATOCRIT 32.6 % (37.0-47.0); HEMOGLOBIN 10.4 gm/dL (12.0-15.0); MCH 23.8 pg (26.0-34.0); MCHC 31.8 g/dL (28.0-37.0); MCV 74.8 fL (80.0-100.0); PLATELET COUNT 467 thou/uL (150-400); RBC 4.36 mil/uL (4.20-5.00); RDW 18.2 % (10.5-14.5); WBC 10.8 thou/uL (4.0-11.0)
[2017-09-16 16:23] LABS: URINE BILIRUBIN NEGATIVE (Negative); URINE BLOOD 2+ (Negative); URINE CLARITY CLEAR; URINE COLOR YELLOW; URINE GLUCOSE-RANDOM* NEGATIVE (Negative); URINE KETONES NEGATIVE (Negative); URINE LEUKOCYTES 2+ (Negative); URINE NITRITE NEGATIVE (Negative); URINE PROTEIN (DIPSTICK) 2+ (Negative)
[2017-09-16 16:25] LABS: CALCIUM 10.7 mg/dL (8.5-10.1); CREATININE 0.6 mg/dL (0.6-1.0); POTASSIUM 4.7 mmol/L (3.5-5.1)
[2017-09-16 16:33] LABS: YEAST Present (None Seen)
[2017-09-16 16:34] LABS: CASTS None Seen /LPF (None Seen); CRYSTALS None Seen /LPF (None Seen); SQUAMOUS 0-3 Few /LPF (0-3); URINE RBC 3-10 Few /HPF (0-2); URINE WBC >25 Many /HPF (0-5)
[2017-09-16 16:51] LABS: ABSOLUTE NEUTROPHILS 7.1 thou/uL (1.4-8.2); PLATELET ESTIMATE INCREASED
[2017-09-16 16:52] LABS: ANISOCYTOSIS 1+
[2017-09-24] MEDS ORDERED: CIPRO500 MG PO (14:27)
[2017-09-24] MEDS ORDERED: DIFLUCAN150 MG PO (14:28)
[2017-09-24] MEDS ORDERED: BACLOFEN 10MG T10 MG PO (14:28)
== END 2017-09-16 17:46 | disposition home or self-care (01) ==
LOC: ER 15:14
PROVIDERS: Emergency Medicine
DX: R82.71 Bacteriuria (principal); I10 Essential (primary) hypertension; M19.90 Unspecified osteoarthritis, unspecified site; E11.40 Type 2 diabetes mellitus with diabetic neuropathy, unspecified; Z96.653 Presence of artificial knee joint, bilateral; Z90.49 Acquired absence of other specified parts of digestive tract; Z90.89 Acquired absence of other organs; Z79.4 Long term (current) use of insulin

== ENCOUNTER → 2017-10-01 | Outpatient (CLI) | payer OTHER ==
[~2017-10-01] MED LIST changes: +BACLOFEN 10MG T10 MG PO; +CIPRO500 MG PO; +DIFLUCAN150 MG PO
== END ==
LOC: HYPER 06:40
DX: E11.622 Type 2 diabetes mellitus with other skin ulcer (principal); L98.491 Non-pressure chronic ulcer of skin of other sites limited to breakdown of skin; L89.154 Pressure ulcer of sacral region, stage 4; G90.9 Disorder of the autonomic nervous system, unspecified; I10 Essential (primary) hypertension; R54 Age-related physical debility; M19.90 Unspecified osteoarthritis, unspecified site; E11.42 Type 2 diabetes mellitus with diabetic polyneuropathy; Z87.891 Personal history of nicotine dependence

== ENCOUNTER 2017-12-09 10:47 | Emergency (ER) | payer OTHER ==
[~2017-12-09] VITALS: Ht 139.7 cm; Wt 62.1 kg
[~2017-12-09 10:47] MED LIST changes: +SYNTHROID100 MC1 PO; -SYNTHROID100 MCG PO
[2017-12-09] MEDS ORDERED: IRON325 PO (11:00)
[2017-12-09] MEDS ORDERED: VITAMIN D3400 UNIT PO (11:03)
[2017-12-09] MEDS ORDERED: ZINC50 M1 PO (11:06)
[2017-12-09] MEDS ORDERED: VITAMINC500 PO (11:06)
[2017-12-09] MEDS ORDERED: SENNA8.6 MG PO (11:07)
[2017-12-09] MEDS ORDERED: MIRALAX17 GM PO ×2 (11:07→12:32)
[2017-12-09] MEDS ORDERED: LIORESAL 10 MG10 MG PO (11:07)
[2017-12-09] MEDS ORDERED: OXYCODONE HCL 55 MG PO (11:08)
[2017-12-09] MEDS ORDERED: TYLENOL EXTRA500 MG PO (11:08)
[2017-12-09] MEDS ORDERED: JUVEN PACKET1 EAC1 PO (11:09)
[2017-12-09 11:22] LABS: BASOPHILS 1.2 % (0.0-2.0); HEMATOCRIT 32.1 % (37.0-47.0); LYMPHOCYTES 17.1 % (24.0-44.0); MCH 21.5 pg (26.0-34.0); MCHC 31.2 g/dL (28.0-37.0); MCV 68.9 fL (80.0-100.0); MONOCYTES 8.1 % (1.0-8.0); PLATELET COUNT 442 thou/uL (150-400); POLYS 73.6 % (36.0-66.0); RBC 4.66 mil/uL (4.20-5.00); RDW 19.8 % (10.5-14.5); WBC 9.6 thou/uL (4.0-11.0)
[2017-12-09 11:29] LABS: CALCIUM 10.3 mg/dL (8.5-10.1); CREATININE 0.5 mg/dL (0.6-1.0); POTASSIUM 4.2 mmol/L (3.5-5.1)
[2017-12-09 11:35] LABS: ALBUMIN 2.2 g/dL (3.4-5.0); TOTAL BILIRUBIN 0.4 mg/dL (<0.1-1.0); TOTAL PROTEIN 8.1 g/dL (6.4-8.2)
[2017-12-09 12:10] LABS: ANISOCYTOSIS 2+; MICROCYTES 2+; PLATELET ESTIMATE INCREASED
[2017-12-09] MEDS ORDERED: COLACE100 MG PO (12:51)
[2017-12-09 13:32] LABS: URINE BILIRUBIN NEGATIVE (Negative); URINE BLOOD TRACE (Negative); URINE CLARITY CLOUDY; URINE COLOR YELLOW; URINE GLUCOSE-RANDOM* NEGATIVE (Negative); URINE KETONES NEGATIVE (Negative); URINE LEUKOCYTES-REFLEX 3+ (Negative); URINE NITRITE-REFLEX POSITIVE (Negative); URINE PROTEIN (DIPSTICK) TRACE (Negative); URINE UROBILINOGEN 0.2 E.U./dl (0.2-1.0)
[2017-12-09] MEDS ORDERED: BACTRIM DS TAB1 EACH PO (13:34)
[2017-12-09 13:39] LABS: CASTS None Seen /LPF (None Seen); SQUAMOUS 4-10 Moderate /LPF (0-3)
[2017-12-09 13:40] LABS: BACTERIA-REFLEX >30 Many /HPF (None Seen); URINE RBC 0-2 Rare /HPF (0-2); URINE WBC-REFLEX >25 Many /HPF (0-5); YEAST-REFLEX Present (None Seen)
[2017-12-09 13:41] LABS: CALCIUM OXALATE 0-3 Few /LPF (None Seen)
== END 2017-12-09 18:45 | disposition home or self-care (01) ==
LOC: ER 10:47
PROVIDERS: Physician Assistant
DX: N39.0 Urinary tract infection, site not specified (principal); R11.2 Nausea with vomiting, unspecified; K59.00 Constipation, unspecified; D64.9 Anemia, unspecified; E11.9 Type 2 diabetes mellitus without complications; I10 Essential (primary) hypertension; M19.90 Unspecified osteoarthritis, unspecified site; M54.9 Dorsalgia, unspecified; G89.29 Other chronic pain; G62.9 Polyneuropathy, unspecified; E03.9 Hypothyroidism, unspecified; Z90.49 Acquired absence of other specified parts of digestive tract

== ENCOUNTER 2017-12-16 07:04 | Inpatient (IN) | payer OTHER ==
[~2017-12-16] VITALS: Ht 149.9 cm; Wt 57.5 kg
--- NOTE | ~2017-12-16 | EKG ---
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
--- NOTE | ~2017-12-16 | HC ---
[facility] [place] [address] [address] [place] [address] CONSULTATION Name: ZOYA BAZZI Room #: 363-P ADM IN M.R.#: [id number] Admission: 12/16/17 Attend Phys: Emi Pineda MD Discharge: Date of : 39 Report #: [id number] THIS REPORT FOR: //name// CC: Miranda Pineda DATE OF SERVICE: 12/17/2017 CHIEF COMPLAINT: Stage 4 sacral pressure ulceration. HISTORY OF PRESENT ILLNESS: This is a 77-year-old female patient with whom I am familiar and I have followed her for quite some time for stage 4 sacral pressure ulcer. She has undergone previous surgical debridement and we have been managing with a wound VAC and she has been slowly improving. The patient is admitted, however, with acute renal failure, urinary tract infection, and confusion. PAST MEDICAL HISTORY: Positive for stage 4 sacral pressure ulceration, history of hypertension, diabetes mellitus, chronic anemia. ALLERGIES: None. MEDICATIONS: Include Timoptic drops, amlodipine, Synthroid, pregabalin, ferrous sulfate, cholecalciferol, zinc, ascorbic acid, senna, polyethylene glycol, oxycodone, Sánchez, tolterodine, fluconazole, baclofen, Bactrim. FAMILY HISTORY: Noncontributory. REVIEW OF SYSTEMS: Really not obtainable due to the patient's level of confusion. SOCIAL HISTORY: Negative for alcohol or tobacco. She has been living in a nursing care facility. PHYSICAL EXAMINATION: VITAL SIGNS: At this time include pulse 130, respiratory rate 18, blood pressure 171/72, temperature 97.9. GENERAL: This is a chronically ill-appearing female patient who appears to be quite confused and almost slightly combative. HEENT: Head normocephalic. Nose and throat are clear. NECK: Supple. LUNGS: Clear. ABDOMEN: Soft. Bowel sounds present. EXTREMITIES: Examination of the sacral region demonstrates a stage 4 sacral pressure ulcer is clean, healthy, granulating and has improved. There is some bone palpable in the deep base; however, the amount of exposed bone is less than [facility] [address] [place] [address] CONSULTATION Name: ROSE MARYZOYA SHAIAN Room #: 363-[facility] IN M.R.#: [id number] Admission: 12/16/17 Attend Phys: Emi Pineda MD Discharge: Date of : 39 Report #: [id number] previous evaluation. NEUROLOGIC: Awake and alert. She is confused and disoriented. LABORATORY DATA: Sodium 139, potassium 3.4, chloride 106, CO2 of 23, BUN 13, creatinine 0.5, glucose 132, calcium is 9.0. Total protein is 8.1, albumin is 2.2. White blood cell count is 8.4 with hemoglobin of 9.2. CLINICAL IMPRESSION: 1. Stage 4 sacral pressure ulceration, slowly improving. 2. Acute confusion/delirium, likely secondary to urinary tract infection. 3. Diabetes mellitus. 4. Hypertension. 5. Acute renal failure. RECOMMENDATIONS: At this point in time, we will continue with [employer] wound VAC, continue low air loss mattress, q.2 hours turning and positioning, Prevalon boots to both lower extremities. Aggressive nutritional support to maximize wound healing and glycemic control. I appreciate being asked to see her again in consultation. <ELECTRONICALLY SIGNED> By: John Kuhn MD 12/18/17 2154 1927 16 John Kuhn MD /nt
--- NOTE | ~2017-12-16 | EKG ---
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: ZAIN : 1940 Requested By: Jeremy Mendoza Order Number: [id number] MD: Tray Garcia Measurements Intervals [place] Rate: 95 P: -29 [place]: 131 QRS: -15 QRSD: 84 T: -11 QT: 349 QTc: 439 Interpretive Statements Sinus rhythm Abnormal R-wave progression, early transition Borderline T wave abnormalities Compared to ECG 12/16/2017 07:18:30 Atrial premature complexes are no longer present Electronically Signed On 12-16-2017 17:10:35 CDT by Tray Garcia [email or web address] <ELECTRONICALLY SIGNED> By: Tray Garcia MD, [facility] 12/16/17 1710 1210 1210 Tray Garcia MD, [facility] /EPI
--- NOTE | ~2017-12-16 | EKG ---
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: Law SIMPSON : 1940 Requested By: Jeremy Mendoza Order Number: [id number] MD: Tray Garcia Measurements Intervals [place] Rate: 86 P: -5 NC: 134 QRS: -11 QRSD: 77 T: -26 QT: 388 QTc: 464 Interpretive Statements Sinus rhythm Frequent supraventricular complexes Abnormal R-wave progression, early transition Borderline T wave abnormalities Baseline wander in lead(s) I,II,aVR Compared to ECG 09/22/2017 00:25:49 Sinus tachycardia no longer present Early R-wave progression no longer present Electronically Signed On 12-16-2017 8:17:09 CDT by Tray Garcia [email or web address] <ELECTRONICALLY SIGNED> By: Tray Garcia MD, [facility] 12/16/17816 7 7 Tray Garcia MD, [facility] /EPI
--- NOTE | ~2017-12-16 | EKG ---
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 : 1940 Requested By: Hoang Rollins Order Number: [id number] MD: Tray Garcia Measurements Intervals [place] Rate: 124 P: 36 OR: 151 QRS: -36 QRSD: 80 T: -11 QT: 294 QTc: 423 Interpretive Statements Sinus tachycardia Atrial premature complexes Inferior infarct, old Compared to ECG 12/16/2017 12:10:15 Atrial premature complex(es) now present Electronically Signed On 12-19-2017 8:33:38 CDT by Tray Garcia [email or web address] <ELECTRONICALLY SIGNED> By: Tray Garcia MD, [facility] 12/19/17 08 1309 08 Tray Garcia MD, [facility] /EPI
--- NOTE | ~2017-12-16 | 2DMMODE ---
[facility] [address] [place] [address] 2 D/M-MODE ECHOCARDIOGRAM Name: ROSE MARYZOYA MERRITT Room #: 363-P ADM IN M.R.#: [id number] Admission: 12/16/17 Attend Phys: Emi Pineda MD Discharge: Date of : 39 Date of Service: 12/19/17 1429 Report #: [id number] THIS REPORT FOR: //name// APPROVED REPORT Study performed: 12/19/2017 13:01:31 EXAM: Comprehensive 2D, Doppler, and color-flow Echocardiogram Patient Location: Bedside Room #: 363 Status: routine BSA: 1.52 HR: 91 bpm BP: 145/78 mmHg Other Information Study Quality: Adequate Technically limited study due to inability to position patient. Indications Diabetes Atrial Fibrillation Hypertension/HDD 2D Dimensions RVDd: 32.39 mm LVEF(%): 64.41 (>50%) IVSd: 11.77 (7-11mm) LVOT Diam: 18.71 (18-24mm) LVDd: 37.90 mm PWd: 13.25 (7-11mm) Ascending Ao: 28.43 (22-36mm) LVDs: 24.81 (25-40mm) Aortic Root: 31.69 mm IVC: 21.00 mm Baxter's LVEF: 64.41 % Volumes Left Atrial Volume (Systole) Single Plane 4CH: 26.80 mL Single Plane 2CH: 22.29 mL LA ESV Index: 17.00 mL/m2 Aortic Valve AoV Peak Eliseo.: 1.47 m/s AO Peak Gr.: 8.59 mmHg LVOT Max P.81 mmHg LVOT Max V: 1.21 m/s CLEMENTINE Vmax: 2.26 cm2 [facility] [address] [address] 2 D/M-MODE ECHOCARDIOGRAM Name: ZOYA BAZZI SHAINA Room #: 363-P [facility] IN .R.#: [id number] Admission: 12/16/17 Attend Phys: Emi Pineda MD Discharge: Date of : 38 Date of Service: 12/19/17 1429 Report #: [id number] Mitral Valve E/A Ratio: 0.6 MV Decel. Time: 266.28 ms MV E Max Eliseo.: 0.78 m/s MV A Eliseo.: 1.25 m/s MV PHT: 77.22 ms IVRT: 107.27 ms Pulmonary Valve PV Peak Eliseo.: 0.89 m/s PV Peak Gr.: 3.18 mmHg Pulmonary Vein P Vein S: 0.44 m/s P Vein A: 0.14 m/s P Vein D: 0.28 m/s P Vein A Dur.: 72.7 msec P Vein S/D Ratio: 1.57 Tricuspid Valve TR Peak Eliseo.: 3.29 m/s RAP Estimate: 10.00 mmHg TR Peak Gr.: 43.37 mmHg PA Pressure: 53.00 mmHg Left Ventricle The left ventricle is normal size. Mild concentric left ventricular hypertrophy. The left ventricular systolic function is normal. The left ventricular ejection fraction is within the normal range. LVEF is 65%. Mild diastolic dysfunction is present (impaired relaxation pattern). Right Ventricle The right ventricle is normal size. The right ventricular systolic function is normal. Atria The left atrium size is normal. The right atrium size is normal. Aortic Valve Mild aortic valve sclerosis. No aortic regurgitation is present. There is no aortic valvular stenosis. Mitral Valve The mitral valve is normal in structure. Trace mitral regurgitation. No evidence of mitral valve stenosis. Tricuspid Valve The tricuspid valve is normal in structure. Moderate tricuspid [address] [address] 2 D/M-MODE ECHOCARDIOGRAM Name: ZOYA BAZZI SHAINA Room #: 363-P [facility] IN M.R.#: [id number] Admission: 12/16/17 Attend Phys: Emi Pineda MD Discharge: Date of : 38 Date of Service: 12/19/17 1429 Report #: [id number] regurgitation. PAP is estimated at 53 mmHg. Pulmonic Valve Pulmonic valve is not well visualized. Trace pulmonic regurgitation. Great Vessels The aortic root is normal in size. IVC is upper limits of normal in size and collapses <50% with inspiration. Pericardium There is no pericardial effusion. <Conclusion> The left ventricle is normal size. LVEF is 65%. Mild aortic valve sclerosis. No aortic regurgitation is present. There is no aortic valvular stenosis. The mitral valve is normal in structure. Trace mitral regurgitation. The tricuspid valve is normal in structure. Moderate tricuspid regurgitation. PAP is estimated at 53 mmHg. Pulmonic valve is not well visualized. Trace pulmonic regurgitation. There is no pericardial effusion. <ELECTRONICALLY SIGNED> By: Hilton Arenas MD 12/19/17 1429 1429 1429 Hilton Arenas MD /INF
[2017-12-16 07:04] VITALS: BP 111/71
[~2017-12-16 07:04] MED LIST changes: +BACTRIM DS TAB1 EACH PO; +COLACE100 MG PO; +IRON325 PO; +JUVEN PACKET1 EAC1 PO; +LIORESAL 10 MG10 MG PO; +MIRALAX17 GM PO; +OXYCODONE HCL 55 MG PO; +SENNA8.6 MG PO; +TYLENOL EXTRA500 MG PO; +VITAMIN D3400 UNIT PO; +VITAMINC500 PO; +ZINC50 M1 PO
[2017-12-16 07:47] LABS: BASOPHILS 0.7 % (0.0-2.0); HEMATOCRIT 30.7 % (37.0-47.0); HEMOGLOBIN 9.7 gm/dL (12.0-15.0); LYMPHOCYTES 12.6 % (24.0-44.0); MCH 21.8 pg (26.0-34.0); MCHC 31.8 g/dL (28.0-37.0); MCV 68.8 fL (80.0-100.0); MONOCYTES 10.9 % (1.0-8.0); PLATELET COUNT 550 thou/uL (150-400); POLYS 75.8 % (36.0-66.0); RBC 4.46 mil/uL (4.20-5.00); RDW 19.5 % (10.5-14.5); WBC 10.5 thou/uL (4.0-11.0)
[2017-12-16 07:49] LABS: URINE BILIRUBIN NEGATIVE (Negative); URINE BLOOD 2+ (Negative); URINE COLOR YELLOW; URINE GLUCOSE-RANDOM* NEGATIVE (Negative); URINE KETONES TRACE (Negative); URINE NITRITE-REFLEX NEGATIVE (Negative); URINE PROTEIN (DIPSTICK) TRACE (Negative); URINE UROBILINOGEN 0.2 E.U./dl (0.2-1.0)
[2017-12-16 07:50] LABS: URINE CLARITY HAZY; URINE LEUKOCYTES-REFLEX 2+ (Negative)
[2017-12-16 07:57] LABS: ANION GAP 8 mmol/L (7-16); BUN 32 mg/dL (7-18); CALCIUM 10.2 mg/dL (8.5-10.1); CHLORIDE 104 mmol/L (98-107); CO2 24 mmol/L (21-32); CREATININE 1.2 mg/dL (0.6-1.0); GLUCOSE 187 mg/dL (74-106); POTASSIUM 4.4 mmol/L (3.5-5.1)
[2017-12-16 07:59] LABS: SODIUM 136 mmol/L (136-145)
[2017-12-16 08:07] LABS: TROPONIN-I <0.06 ng/mL (<0.06)
[2017-12-16 08:25] LABS: SQUAMOUS 0-3 Few /LPF (0-3); YEAST-REFLEX Present (None Seen)
[2017-12-16 08:26] LABS: AMP/METHAMP Negative (Negative); BACTERIA-REFLEX 1-9 Few /HPF (None Seen); BARBITURATES Negative (Negative); BENZODIAZEPINES Negative (Negative); CASTS None Seen /LPF (None Seen); COCAINE Negative (Negative); CRYSTALS None Seen /LPF (None Seen); METHADONE Negative (Negative); OPIATES Negative (Negative); PCP Negative (Negative); URINE RBC None Seen /HPF (0-2); URINE WBC-REFLEX 6-15 Few /HPF (0-5)
[2017-12-16 08:39] LABS: ANISOCYTOSIS 1+; HYPOCHROMASIA 1+; MICROCYTES 2+; PLATELET ESTIMATE INCREASED
[2017-12-16 11:59] VITALS: BP 171/81
[2017-12-16 12:26] VITALS: BP 167/64
[2017-12-16 15:50] VITALS: BP 167/64
[2017-12-16 16:25] VITALS: BP 138/78
[2017-12-16 19:26] VITALS: BP 152/97
[2017-12-17 04:00] VITALS: BP 131/85
[2017-12-17 05:56] LABS: HEMATOCRIT 28.9 % (37.0-47.0); HEMOGLOBIN 9.2 gm/dL (12.0-15.0); MCH 22.2 pg (26.0-34.0); MCV 69.4 fL (80.0-100.0); RBC 4.16 mil/uL (4.20-5.00); RDW 19.5 % (10.5-14.5); WBC 8.4 thou/uL (4.0-11.0)
[2017-12-17 06:08] LABS: CREATININE 0.5 mg/dL (0.6-1.0); MAGNESIUM 1.5 mg/dL (1.8-2.4)
[2017-12-17 06:15] LABS: POTASSIUM 3.4 mmol/L (3.5-5.1)
[2017-12-17 07:50] VITALS: BP 108/79
[2017-12-17 10:31] VITALS: BP 108/79
[2017-12-17 13:50] VITALS: BP 171/72
[2017-12-17 20:15] VITALS: BP 157/96
[2017-12-18 03:50] VITALS: BP 159/111
[2017-12-18 06:20] LABS: HEMOGLOBIN 10.1 gm/dL (12.0-15.0); MCH 21.7 pg (26.0-34.0); MCHC 31.6 g/dL (28.0-37.0); MCV 68.6 fL (80.0-100.0); RBC 4.66 mil/uL (4.20-5.00); RDW 19.5 % (10.5-14.5); WBC 9.2 thou/uL (4.0-11.0)
[2017-12-18 06:33] LABS: CALCIUM 9.4 mg/dL (8.5-10.1); CREATININE 0.4 mg/dL (0.6-1.0)
[2017-12-18 07:22] VITALS: BP 151/103
[2017-12-18 12:43] VITALS: BP 163/96
[2017-12-18 13:57] VITALS: BP 145/85
[2017-12-18 19:23] VITALS: BP 154/85
[2017-12-18 23:45] VITALS: BP 149/91
[2017-12-19 03:30] VITALS: BP 160/87
[2017-12-19 05:15] LABS: HEMATOCRIT 30.2 % (37.0-47.0); HEMOGLOBIN 9.5 gm/dL (12.0-15.0); MCH 21.4 pg (26.0-34.0); MCHC 31.4 g/dL (28.0-37.0); MCV 68.2 fL (80.0-100.0); RBC 4.42 mil/uL (4.20-5.00); RDW 19.8 % (10.5-14.5); WBC 9.3 thou/uL (4.0-11.0)
[2017-12-19 05:32] LABS: CALCIUM 9.2 mg/dL (8.5-10.1); CREATININE 0.4 mg/dL (0.6-1.0); POTASSIUM 3.7 mmol/L (3.5-5.1)
[2017-12-19 06:07] VITALS: BP 145/78
[2017-12-19 08:04] VITALS: BP 149/101
[2017-12-19 11:36] VITALS: BP 141/83
[2017-12-19 16:30] VITALS: BP 153/83
[2017-12-19 21:20] VITALS: BP 147/79
[2017-12-20 03:52] LABS: HEMATOCRIT 29.9 % (37.0-47.0); HEMOGLOBIN 9.5 gm/dL (12.0-15.0); MCH 21.9 pg (26.0-34.0); MCHC 31.9 g/dL (28.0-37.0); MCV 68.6 fL (80.0-100.0); RBC 4.36 mil/uL (4.20-5.00); RDW 19.9 % (10.5-14.5); WBC 10.1 thou/uL (4.0-11.0)
[2017-12-20 04:07] LABS: CALCIUM 9.6 mg/dL (8.5-10.1); CREATININE 0.4 mg/dL (0.6-1.0); POTASSIUM 3.5 mmol/L (3.5-5.1)
[2017-12-20 04:45] VITALS: BP 160/91
[2017-12-20 07:53] VITALS: BP 145/90
[2017-12-20 11:12] VITALS: BP 142/87
[2017-12-20 15:12] VITALS: BP 133/81
[2017-12-20 17:50] LABS: MAGNESIUM 2.6 mg/dL (1.8-2.4); POTASSIUM 3.8 mmol/L (3.5-5.1)
[2017-12-20 20:05] VITALS: BP 134/82
[2017-12-21] VITALS: BP 119/74
[2017-12-21 04:45] LABS: CALCIUM 9.3 mg/dL (8.5-10.1); CREATININE 0.6 mg/dL (0.6-1.0); MAGNESIUM 2.1 mg/dL (1.8-2.4); POTASSIUM 4.2 mmol/L (3.5-5.1)
[2017-12-21 05:15] VITALS: BP 142/76
[2017-12-21 05:26] LABS: HEMATOCRIT 27.8 % (37.0-47.0); HEMOGLOBIN 8.8 gm/dL (12.0-15.0); MCH 21.7 pg (26.0-34.0); MCHC 31.8 g/dL (28.0-37.0); MCV 68.5 fL (80.0-100.0); RBC 4.06 mil/uL (4.20-5.00); RDW 20.1 % (10.5-14.5); WBC 8.5 thou/uL (4.0-11.0)
[2017-12-21 07:58] VITALS: BP 115/73
[2017-12-21 12:30] VITALS: BP 115/73
[2017-12-21 15:35] VITALS: BP 122/82
[2017-12-21 20:20] VITALS: BP 117/82
[2017-12-22 04:30] VITALS: BP 123/79
[2017-12-22 05:44] LABS: HEMATOCRIT 28.1 % (37.0-47.0); HEMOGLOBIN 8.9 gm/dL (12.0-15.0); MCHC 31.7 g/dL (28.0-37.0); MCV 69.6 fL (80.0-100.0); RBC 4.04 mil/uL (4.20-5.00); RDW 19.7 % (10.5-14.5); WBC 9.4 thou/uL (4.0-11.0)
[2017-12-22 06:23] LABS: CALCIUM 9.8 mg/dL (8.5-10.1); CREATININE 0.5 mg/dL (0.6-1.0); POTASSIUM 4.4 mmol/L (3.5-5.1)
[2017-12-22] MEDS ORDERED: LOPRESSOR50 PO (12:10)
[2017-12-22] MEDS ORDERED: KEFLEX500 M1 PO (12:11)
== END 2017-12-22 18:00 | DRG 871 ==
LOC: ER 07:04 → EROBS 09:58 → 4E 09:58 → 3W 12-18 16:23 → ENTRNSPT 12-22 16:30 → 3W 12-22 18:00
PROVIDERS: Emergency Medicine; Hospitalist; Internal Medicine
DX: A41.9 Sepsis, unspecified organism (principal); G93.41 Metabolic encephalopathy; L89.154 Pressure ulcer of sacral region, stage 4; N39.0 Urinary tract infection, site not specified; N17.9 Acute kidney failure, unspecified; E11.9 Type 2 diabetes mellitus without complications; I10 Essential (primary) hypertension; M19.90 Unspecified osteoarthritis, unspecified site; G89.29 Other chronic pain; M54.9 Dorsalgia, unspecified; Z96.653 Presence of artificial knee joint, bilateral; E03.9 Hypothyroidism, unspecified; G62.9 Polyneuropathy, unspecified; R41.0 Disorientation, unspecified; R25.1 Tremor, unspecified; E83.42 Hypomagnesemia; E87.6 Hypokalemia; D50.9 Iron deficiency anemia, unspecified; I48.91 Unspecified atrial fibrillation; Z90.49 Acquired absence of other specified parts of digestive tract; Z87.891 Personal history of nicotine dependence; Z79.899 Other long term (current) drug therapy
CPT/HCPCS: 10183; 10879

== ENCOUNTER 2017-12-22 16:51 | Inpatient (IN) | payer OTHER ==
[~2017-12-22] VITALS: Ht 127 cm; Wt 69.8 kg
--- NOTE | ~2017-12-22 | PLAN ---
[facility] [place] [address] REHAB UNIT PLAN OF CARE Name: ZOYA BAZZI Room #: 503-P ADM IN M.R.#: [id number] Admission: 12/22/17 Attend Phys: Jose G Flores MD Discharge: Date of : 39 Report #: [id number] THIS REPORT FOR: //name// CC: Jose G Ryan DATE OF SERVICE: 12/24/2017 PROGRESS NOTE/OVERALL PLAN OF CARE SUBJECTIVE: The patient is seen back today in followup. She is in no distress. Last recorded temperature 98.4, pulse 51, respirations 20, blood pressure 150/75. Lower extremity examination without change. Strength is 3/5 to 3+/5. Left ankle dorsiflexion appears less than antigravity. The wound care team was involved and I examined her stage 4 pressure ulcer. It is quite deep, but appears clean with a lot of granulation tissue. We are utilizing the wound VAC. She has some qtgn-hb-azpytsko comprehensive deficits. She also has ykhc-mj-hcausnmn cognitive deficits. She does follow basic commands without difficulty. She has decreased insight. She also has some noted higher level problem solving and reasoning per speech therapy. Memory is ywmd-il-gpflebcapt impaired. Functionally, she is max assist with attempted sit to stand transfers, bed to wheelchair is max assist x 2, supine to sit is max assist. We have been working with her on some limited attempts to incident commander the parallel bars, she tolerates approximately 30 seconds. ASSESSMENT: 1. Metabolic encephalopathy with decreased mental status. 2. Medical complexity with generalized debilitation. 3. Bilateral lower extremity weakness. 4. Premorbid peripheral neuropathy. 5. Stage 4 sacral pressure ulcer with wound VAC in place. 6. Urinary tract infection. 7. Atrial fibrillation with rapid ventricular rate. 8. Acute renal failure, which improved and resolved. 9. Hypertension. 10. Past history of cervical fusion. 11. Degenerative joint disease, status post history of bilateral knee replacements. 12. Diabetes mellitus type 2. 13. Left upper extremity weakness with history of prior rotator cuff involvement. PLAN: The overall plan of care is based on the preadmission screen, post-admission physician evaluation and information garnered from therapy assessments. 1. Estimated length of stay is probably at least [address] [address] REHAB UNIT PLAN OF CARE Name: ZOYA BAZZI SHAINA Room #: 503-P [facility] IN .R.#: [id number] Admission: 12/22/17 Attend Phys: Jose G Flores MD Discharge: Date of : 39 Report #: [id number] 2. Medical prognosis is reasonably good. 3. Anticipated interventions include the interdisciplinary acute inpatient rehabilitation program, PT, OT and speech, rehab nursing involved as well as the interdisciplinary rehabilitation team to try to maximize the patient's functional independence. 4. Discharge destination is to get back to the home setting with family. She indicates she will have family support. We will need to look at equipment issues for her. 5. Expected therapy by discipline includes PT, OT and Speech 1 hour per day each 5 days a week throughout the duration of the acute inpatient rehabilitation stay. <ELECTRONICALLY SIGNED> By: Jose G Flores MD 12/26/17 1653 0919 1032 Jose G Flores MD /nt
--- NOTE | ~2017-12-22 | H ---
[facility] [place] [address] HISTORY AND PHYSICAL Name: ZOYA BAZZI Room #: 503-P ADM IN M.R.#: [id number] Admission: 12/22/17 Attend Phys: Jose G Flores MD Discharge: Date of : 39 Report #: [id number] THIS REPORT FOR: //name// CC: Jose G Ryan DATE OF SERVICE: 12/22/2017 HISTORY AND PHYSICAL AND POST-ADMISSION PHYSICIAN EVALUATION HISTORY OF PRESENT ILLNESS: The patient is a 77-year-old -I[place]ic female, who was originally admitted to the Emergency Department at [facility] on 12/16/2017 with acute mental status changes. She was noted to have acute confusion, had acute renal failure, noted to have UTI. She also has a stage 4 sacral wound, for which she has had previous debridements and infections and has been treated with a wound VAC with slow improvement. Her course was complicated by atrial fibrillation with rapid ventricular rate, which was treated with IV rate control medications. She was given antibiotics for her urinary tract infection. She has significant bilateral lower extremity weakness with neuropathy in lower extremities and upper extremities and painful spasms in her feet. She has bilateral lower extremity weakness with her peripheral neuropathy. She was noted to have mental status changes with confusion, thought secondary to infection, acute renal failure, narcotics, and atrial fibrillation. She was noted to have a significant decline from her premorbid functional status and has now been admitted for acute in-hospital inpatient rehabilitation. PAST MEDICAL HISTORY: Includes hypertension, diabetes mellitus, hypothyroidism, spinal stenosis, peripheral neuropathy, chronic back pain, and degenerative arthritis. PAST SURGICAL HISTORY: T and A, cholecystectomy, bilateral knee replacement, cervical fusion, and sacral debridement. MEDICATIONS: Please see the full medication listing. This includes vitamins, herbals, and supplements. ALLERGIES: No known drug allergies. HABITS: Nonsmoker. No history of alcohol abuse. SOCIAL HISTORY: She lives in an apartment with her daughter, which is ramped enter elevator to floor. No stairs. She utilized the wheelchair premorbidly. REVIEW OF SYSTEMS: No current complaints of chest pain, shortness of breath, or abdominal discomfort. She has the altered mental status. She has an old left rotator cuff injury and unable to lift the arm above her shoulder level. She [address] [address] HISTORY AND PHYSICAL Name: ZOYA BAZZI Room #: 503-P [facility] IN M.R.#: [id number] Admission: 12/22/17 Attend Phys: Jose G Flores MD Discharge: Date of : 39 Report #: [id number] has prior bilateral lower extremity weakness and decreased sensation. PHYSICAL EXAMINATION: GENERAL: The patient is 77-year-old -I[place]ic female, in no obvious distress. VITAL SIGNS: Temperature is 97.7, pulse is 112, respirations 20, and blood pressure is 130/87. NEUROLOGIC: She will able to follow basic commands, has some difficulty with more complex commands. She need some cues, but is pleasant. HEENT: EOMs appeared to be full. Facies are symmetric. CHEST: Sounded clear to auscultation. CARDIOVASCULAR: Regular rate and rhythm. ABDOMEN: Bowel sounds positive, nontender. GENITOURINARY AND RECTAL: Deferred. I rolled around to her left side and she does have the sacral wound, which currently has the wound VAC in place. MUSCULOSKELETAL: She has functional range of motion of the upper extremities. Strength is a grade 3+/5. She has decreased range of motion of the left upper extremity, appears to have some decreased team facilitator strength of the left upper extremity as well. In her lower extremities, her strength is probably a grade 3+/5. No focal calf swelling. Functionally, she is needing assistance with basic transfers. ASSESSMENT: A 77-year-old -Icelandic female with the following problem list: 1. Metabolic encephalopathy with decreased mental status, gradually improving. 2. Medical complexity with generalized debilitation. 3. Bilateral lower extremity weakness. 4. Premorbid peripheral neuropathy. 5. Stage 4 sacral pressure ulcer with wound VAC in place. 6. Urinary tract infection. 7. Atrial fibrillation with rapid ventricular rate. 8. Acute renal failure, which has improved/resolved. 9. Hypertension. 10. Past history of cervical fusion in 07/2017. 11. Degenerative joint disease, status post history of bilateral knee replacements. 12. Diabetes mellitus type 2. 13. Left upper extremity weakness with history of prior rotator cuff involvement. PLAN: The patient is admitted for acute in-hospital inpatient rehabilitation. From a postadmission physician evaluation perspective, there are no relevant changes since the preadmission screening. Please see the above review of prior and current medical and functional conditions and comorbidities. Please see the patient's previous and current functional status. As far as risk of complications, the patient has multiple medical comorbidities as noted above. [address] [address] HISTORY AND PHYSICAL Name: ZOYA BAZZI Room #: 503-P ADM IN M.R.#: [id number] Admission: 12/22/17 Attend Phys: Jose G Flores MD Discharge: Date of : 39 Report #: [id number] The initial plan of care involves the interdisciplinary acute inpatient rehabilitation program with goal of maximizing the patient's functional independence, so that she can hopefully return back to her prior living situation. Measurable functional goals would be to improve with basic wheelchair mobility and transfers and ADLs that her family can again care for her in the home setting. Prognosis is reasonably good with estimated length of stay probably at least 2 weeks. Potential barriers would include the patient's multiple medical comorbidities and decreased functional status. The patient will be seen by PT, OT, and speech with speech therapy focusing on the cognitive deficits with her encephalopathy. She does meet diagnostic criteria for an acute in-hospital inpatient rehabilitation stay. She meets the medical necessity criteria and we will have the multiple technical services consultant physicians continue to follow. She does have the tolerance for therapies and has appropriate discharge goals back to the home setting. <ELECTRONICALLY SIGNED> By: Jose G Flores MD 12/23/17 1528 [id number] Jose G Flores MD /[facility]
--- NOTE | ~2017-12-22 | EKG ---
[address] [place] [address] ELECTROCARDIOGRAM REPORT Name: ROSE MARYZOYA MERRITT Room #: 503-P ADM IN M.R.#: [id number] Admission: 12/22/17 Attend Phys: Jose G Flores MD Discharge: Date of : 39 Report #: [id number] THIS REPORT FOR: //name// [facility] Test Date: 2018-01-05 Test Time: 10:10:31 Pat Name: ZOYA BAZZI Department: Room: 503 Gender: F Tortilla Maker: JUANITO : 1940 Requested By: Juan Yoon Order Number: [id number] MD: Tray Garcia Measurements Intervals [place] Rate: 96 P: -18 MT: 137 QRS: -18 QRSD: 85 T: -21 QT: 332 QTc: 420 Interpretive Statements Sinus rhythm Atrial premature complex Borderline left axis deviation Borderline T abnormalities Compared to ECG 12/17/2017 13:09:28 T-wave abnormality now present Sinus tachycardia no longer present Electronically Signed On 01-06-2018 8:51:52 CDT by Tray Garcia [email or web address] <ELECTRONICALLY SIGNED> By: Tray Garcia MD, [facility] 01/06/18 0851 [id number] [id number] Tray Garcia MD, [facility] /EPI
--- NOTE | ~2017-12-22 | HC ---
[facility] [place] [address] CONSULTATION Name: ZOYA BAZZI Room #: 503-P ADM IN M.R.#: [id number] Admission: 12/22/17 Attend Phys: Jose G Flores MD Discharge: Date of : 39 Report #: [id number] THIS REPORT FOR: //name// CC: Jose G Ryan DATE OF SERVICE: 12/28/2017 ATTENDING PHYSICIAN: Jose G Flores MD WASTE SPECIALIST: Mina Foster, PhD CLINICAL PRESENTATION: The patient is a 77-year-old female admitted to the rehabilitation unit at [facility] for a comprehensive inpatient rehabilitation program to improve functional mobility, activities of daily living and self-care and mental status secondary to deficits from a metabolic encephalopathy. Her diagnoses include medical complexity with general debility, bilateral lower extremity weakness, premorbid peripheral neuropathy, stage 4 sacral pressure ulcer with wound VAC in place, urinary tract infection, atrial fibrillation with rapid ventricular rate, acute renal failure, hypertension, past history of cervical fusion, degenerative joint disease, status post history of bilateral knee replacements, diabetes mellitus type 2 and a left upper extremity weakness with history of prior rotator cuff involvement. A complete description of her medical condition and history can be found in her medical record. Neuropsychological consultation was requested to provide assistance in the assessment of cognitive and emotional status and to provide recommendations and services. Prior to this most recent medical event, she was living independently in her own home. She has three children. One child lives within the [place] area and provides most of the support. Her about 9 years ago. The patient is a high school graduate with 1 year of college. 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 TECHNIQUES UTILIZED: Clinical interview, review of medical records, staff consultation and behavioral observation, mini mental status exam 2 standard version, clock drawing, verbal fluency assessment and brief abstract reasoning assessment. EXAMINATION FINDINGS: The patient was alert and cooperative with the assessment. She had difficulty in describing the events surrounding her hospitalization and the purpose of her treatment. There is no evidence of aphasia. Her thoughts are logical and goal oriented. There is no evidence of thought disorder or report of suicidal ideation. The patient reports difficulty with sleep, but does not indicate any problems with appetite, depression, anxiety or deficits in cognitive functioning. [address] [address] CONSULTATION Name: ZOYA BAZZI Room #: 503-P [facility] IN M.R.#: [id number] Admission: 12/22/17 Attend Phys: Jose G Flores MD Discharge: Date of : 39 Report #: [id number] Her performance on the MMSE 2 brief version is in the mild range of impairment with a raw score of 13 of 16, has a T score of 37 and percentile rank at 10. She was 3/3 for initial registration, 4/5 for orientation to time, 4/[address] and was 1/3 for immediate recall of 3 items after a brief time delay and distraction. The performance on the MMSE 2 standard version was a raw score of 22 of 30, which is a T score of 31 and percentile rank of 3. Deficits were noted in serial sevens and the ability to copy a simple geometric design. The patient was unable to accurately set the hands of a clock at 10 minutes after 11. She instead indicated that the time is 10 to 11. Letter fluency was within normal limits with a raw score of 18, T score of 44, percentile rank of 27. Category fluency is in the moderate range of impairment with a raw score 23, T score of 30 and percentile rank of 2. Overall, total fluency is a raw score of 41 and T score of 34, which is at the 5th percentile and in the borderline range. Brief abstract reasoning test was 6/8, which is within normal limits. Moderate variability in abstract conceptual ability. Diagnostic Impression: Mild to moderate deficits in cognitive functioning. Recommendations: The use of compensatory strategies for variabilty in cognitive functioning specificalliy with executive functioning. Assistance in the development of environmental modifications will also assist over all adjustment. Verbal praise and compliments regarding participation in therapies. Thank you very much for allowing me to provide the consultation on this patient. <ELECTRONICALLY SIGNED> By: Mina Foster, PhD 01/03/18 1516 1641 0506 Mina Foster, PhD /nt
[~2017-12-22 16:51] MED LIST changes: +KEFLEX500 M1 PO; +LOPRESSOR50 PO
[2017-12-22 18:15] VITALS: BP 130/87
[2017-12-23 05:22] LABS: CALCIUM 9.7 mg/dL (8.5-10.1); CREATININE 0.5 mg/dL (0.6-1.0); POTASSIUM 4.2 mmol/L (3.5-5.1)
[2017-12-23 05:28] LABS: HEMATOCRIT 26.9 % (37.0-47.0); HEMOGLOBIN 8.7 gm/dL (12.0-15.0); MCH 22.4 pg (26.0-34.0); MCHC 32.3 g/dL (28.0-37.0); MCV 69.5 fL (80.0-100.0); RBC 3.87 mil/uL (4.20-5.00); RDW 20.3 % (10.5-14.5); WBC 10.7 thou/uL (4.0-11.0)
[2017-12-23 07:15] VITALS: BP 117/73
[2017-12-23 20:54] VITALS: BP 150/75
[2017-12-24 07:08] VITALS: BP 114/56
[2017-12-24 19:15] VITALS: BP 134/58
[2017-12-25 07:00] VITALS: BP 134/82
[2017-12-25 21:20] VITALS: BP 132/69
[2017-12-26 06:21] LABS: HEMATOCRIT 26.2 % (37.0-47.0); HEMOGLOBIN 8.3 gm/dL (12.0-15.0); MCHC 31.6 g/dL (28.0-37.0); MCV 69.5 fL (80.0-100.0); RBC 3.76 mil/uL (4.20-5.00); RDW 20.6 % (10.5-14.5); WBC 10.9 thou/uL (4.0-11.0)
[2017-12-26 06:33] LABS: CALCIUM 10.1 mg/dL (8.5-10.1); CREATININE 0.6 mg/dL (0.6-1.0); POTASSIUM 4.1 mmol/L (3.5-5.1)
[2017-12-26 08:00] VITALS: BP 103/58
[2017-12-26 10:34] VITALS: BP 134/55
[2017-12-26 20:27] VITALS: BP 105/61
[2017-12-27 07:20] VITALS: BP 100/58
[2017-12-27 19:06] VITALS: BP 120/46
[2017-12-28 06:33] LABS: HEMATOCRIT 25.3 % (37.0-47.0); HEMOGLOBIN 7.7 gm/dL (12.0-15.0); MCH 21.1 pg (26.0-34.0); MCHC 30.3 g/dL (28.0-37.0); MCV 69.7 fL (80.0-100.0); RBC 3.63 mil/uL (4.20-5.00); RDW 20.8 % (10.5-14.5); WBC 12.4 thou/uL (4.0-11.0)
[2017-12-28 06:50] LABS: CALCIUM 9.5 mg/dL (8.5-10.1); CREATININE 0.4 mg/dL (0.6-1.0); POTASSIUM 4.5 mmol/L (3.5-5.1)
[2017-12-28 07:30] VITALS: BP 108/56
[2017-12-28 19:30] VITALS: BP 115/66
[2017-12-29 06:21] LABS: HEMATOCRIT 24.6 % (37.0-47.0); HEMOGLOBIN 7.8 gm/dL (12.0-15.0); MCHC 31.6 g/dL (28.0-37.0); MCV 69.7 fL (80.0-100.0); RBC 3.53 mil/uL (4.20-5.00); RDW 20.5 % (10.5-14.5); WBC 10.6 thou/uL (4.0-11.0)
[2017-12-29 08:38] VITALS: BP 108/58
[2017-12-29 20:26] VITALS: BP 110/67
[2017-12-30 07:05] VITALS: BP 123/78
[2017-12-30 10:10] LABS: GLYCOHEMOGLOBIN (HGB A1C) 6.8 % (4.8-5.6)
[2017-12-30 22:10] VITALS: BP 146/77
[2017-12-31 07:15] VITALS: BP 98/66
[2017-12-31 20:10] VITALS: BP 100/65
[2018-01-01 06:14] LABS: CREATININE 0.5 mg/dL (0.6-1.0); MAGNESIUM 1.7 mg/dL (1.8-2.4); POTASSIUM 4.2 mmol/L (3.5-5.1)
[2018-01-01 07:10] VITALS: BP 110/59
[2018-01-01 07:58] LABS: HEMATOCRIT 25.4 % (37.0-47.0); MCH 21.6 pg (26.0-34.0); MCHC 31.4 g/dL (28.0-37.0); MCV 68.7 fL (80.0-100.0); PLATELET COUNT 499 thou/uL (150-400); RDW 20.3 % (10.5-14.5); WBC 8.9 thou/uL (4.0-11.0)
[2018-01-01 08:42] LABS: ABSOLUTE NEUTROPHILS 5.5 thou/uL (1.4-8.2); PLATELET ESTIMATE INCREASED
[2018-01-01 08:43] LABS: ANISOCYTOSIS 2+; HYPOCHROMASIA 1+; MICROCYTES 2+
[2018-01-01 19:34] VITALS: BP 129/72
[2018-01-02 08:00] VITALS: BP 105/62
[2018-01-02 19:17] VITALS: BP 115/65
[2018-01-03 07:34] VITALS: BP 121/66
[2018-01-03 20:20] VITALS: BP 118/60
[2018-01-04 07:39] VITALS: BP 116/71
[2018-01-04 19:35] VITALS: BP 118/65
[2018-01-05 07:10] VITALS: BP 101/62
[2018-01-05 09:45] VITALS: BP 95/59
[2018-01-05 19:15] VITALS: BP 123/83
[2018-01-06 04:52] LABS: CALCIUM 9.6 mg/dL (8.5-10.1); CREATININE 0.5 mg/dL (0.6-1.0); MAGNESIUM 1.9 mg/dL (1.8-2.4); POTASSIUM 4.3 mmol/L (3.5-5.1)
[2018-01-06 05:03] LABS: HEMATOCRIT 24.8 % (37.0-47.0); HEMOGLOBIN 7.8 gm/dL (12.0-15.0); MCH 21.8 pg (26.0-34.0); MCHC 31.4 g/dL (28.0-37.0); MCV 69.5 fL (80.0-100.0); RBC 3.57 mil/uL (4.20-5.00); RDW 19.8 % (10.5-14.5); WBC 8.9 thou/uL (4.0-11.0)
[2018-01-06 07:30] VITALS: BP 127/83
[2018-01-06 15:08] VITALS: BP 127/83
[2018-01-06 19:21] VITALS: BP 127/79
[2018-01-07 07:30] VITALS: BP 107/55
[2018-01-07] MEDS ORDERED: B-12500 MCG PO (07:43)
[2018-01-07] MEDS ORDERED: ASPIRIN325 PO (07:43)
[2018-01-07] MEDS ORDERED: ERGOCALCIF50000 UNIT PO (07:43)
[2018-01-07] MEDS ORDERED: LOPRESSOR25 PO (07:43)
[2018-01-07] MEDS ORDERED: LEVEMIR SUBQ (07:46)
[2018-01-07 13:22] VITALS: BP 127/83
== END 2018-01-07 20:55 | disposition home health service (06) | DRG 70 ==
PROVIDERS: Hospitalist; Nurse Practitioner; Nurse Practitioner Family; Physical Medicine & Rehabilitation
DX: G93.41 Metabolic encephalopathy (principal); L89.154 Pressure ulcer of sacral region, stage 4; A41.9 Sepsis, unspecified organism; N17.9 Acute kidney failure, unspecified; N39.0 Urinary tract infection, site not specified; R53.1 Weakness; I48.91 Unspecified atrial fibrillation; I10 Essential (primary) hypertension; E11.42 Type 2 diabetes mellitus with diabetic polyneuropathy; Z96.653 Presence of artificial knee joint, bilateral; R53.81 Other malaise; E03.9 Hypothyroidism, unspecified; D50.9 Iron deficiency anemia, unspecified; G31.84 Mild cognitive impairment of uncertain or unknown etiology; G89.29 Other chronic pain; E55.9 Vitamin D deficiency, unspecified; Z98.1 Arthrodesis status; Z79.82 Long term (current) use of aspirin; Z79.899 Other long term (current) drug therapy
CPT/HCPCS: 10112

== ENCOUNTER → 2018-01-22 | Outpatient (CLI) | payer OTHER ==
[~2018-01-22] MED LIST changes: +ASPIRIN325 PO; +B-12500 MCG PO; +ERGOCALCIF50000 UNIT PO; +LEVEMIR SUBQ; +LOPRESSOR25 PO
== END ==
LOC: HYPER 06:58
DX: E11.622 Type 2 diabetes mellitus with other skin ulcer (principal); L89.154 Pressure ulcer of sacral region, stage 4; L98.491 Non-pressure chronic ulcer of skin of other sites limited to breakdown of skin; E11.42 Type 2 diabetes mellitus with diabetic polyneuropathy; I10 Essential (primary) hypertension; G90.09 Other idiopathic peripheral autonomic neuropathy; M19.90 Unspecified osteoarthritis, unspecified site; Z79.4 Long term (current) use of insulin; Z87.891 Personal history of nicotine dependence

== ENCOUNTER → 2018-03-09 | Outpatient (CLI) | payer OTHER | LOC: HYPER 02-19 09:07 | DX: E11.622 Type 2 diabetes mellitus with other skin ulcer (principal); L89.154 Pressure ulcer of sacral region, stage 4; L98.491 Non-pressure chronic ulcer of skin of other sites limited to breakdown of skin; E11.43 Type 2 diabetes mellitus with diabetic autonomic (poly)neuropathy; I10 Essential (primary) hypertension; M19.90 Unspecified osteoarthritis, unspecified site; Z79.4 Long term (current) use of insulin; Z87.891 Personal history of nicotine dependence ==

== ENCOUNTER 2018-03-26 21:42 | Inpatient (IN) | payer OTHER ==
[~2018-03-26] VITALS: Ht 142.2 cm; Wt 65.5 kg
--- NOTE | ~2018-03-26 | EKG ---
[address] [place] [address] ELECTROCARDIOGRAM REPORT Name: ROSE MARYZOYA FOSTEREN Room #: 453-P ADM IN M.R.#: [id number] Admission: 03/27/18 Attend Phys: Emi Pineda MD Discharge: Date of : 39 Report #: [id number] THIS REPORT FOR: //name// [facility] Test Date: 2018-03-26 Test Time: 23:00:03 Pat Name: ZOYA BAZZI Department: Room: [facility] Gender: F Courseware Developer: KELSI : 1940 Requested By: Hannah Caballero Order Number: [id number] MD: Tray Garcia Measurements Intervals [place] Rate: 119 P: -49 NV: 112 QRS: -28 QRSD: 70 T: -43 QT: 306 QTc: 431 Interpretive Statements Sinus tachycardia frequent atrial premature complexes Nonspecific ST and T wave abnormality Compared to ECG 01/05/2018 10:10:31 atrial premature complexes and now present nonspecific change in the ST and T-wave segments Electronically Signed On 03-27-2018 17:12:08 CDT by Tray Garcia [email or web address] <ELECTRONICALLY SIGNED> By: Tray Garcia MD, FACC 03/27/18 1712 99 99 Tray Garcia MD, FAC /EPI
--- NOTE | ~2018-03-26 | HC ---
[facility] [place] [address] CONSULTATION Name: ZOYA BAZZI Room #: 453-P [facility] IN M.R.#: [id number] Admission: 03/27/18 Attend Phys: Emi Pineda MD Discharge: 04/01/18 Date of : 39 Report #: [id number] THIS REPORT FOR: //name// CC: Miranda Pineda DATE OF SERVICE: 03/27/2018 CHIEF COMPLAINT: Stage 4 sacral pressure ulceration. HISTORY OF PRESENT ILLNESS: This is a 77-year-old female patient with whom I am very familiar from following her in the hospital as well as an outpatient. She has stage 4 sacral pressure ulceration. She has undergone previous surgical debridement, has been managed with a wound VAC and there has been slow improvement. She is admitted with progressive pain in her legs related to her neuropathy and I have been asked to see with regard to wound care. She denies any wound pain, drainage or odor at this time. PAST MEDICAL HISTORY: Positive for history of diabetes mellitus, chronic anemia, hypertension, peripheral neuropathy and a stage 4 sacral pressure ulceration. ALLERGIES: None. MEDICATIONS: Include amlodipine, Synthroid, pregabalin, ferrous sulfate, cholecalciferol, zinc, ascorbic acid, senna, polyethylene glycol, Sánchez, tolterodine, fluconazole, baclofen and Bactrim. ALLERGIES: None. FAMILY HISTORY: Noncontributory. REVIEW OF SYSTEMS: CONSTITUTIONAL: The patient denies fevers, chills or weight loss. NEUROLOGIC: The patient denies focal weakness, numbness, tingling. EYES: The patient denies any visual changes. ENT: The patient denies earache, nasal discharge, sore throat. CARDIOVASCULAR: The patient denies chest pain, palpitations or diaphoresis. PULMONARY: The patient denies cough or shortness of breath. GASTROINTESTINAL: The patient denies nausea, vomiting, diarrhea or abdominal pain. ORTHOPEDIC: The patient complains of severe pain in both legs. She thinks it is from neuropathic type pain and is being evaluated by the hospitalist and Geriatric Service. Other systems in a 14-point review of systems are negative. [facility] [address] [place] [address] CONSULTATION Name: ZOYA BAZZI Room #: 453-P [facility] IN .R.#: [id number] Admission: 03/27/18 Attend Phys: Emi Pineda MD Discharge: 04/01/18 Date of : 39 Report #: [id number] PHYSICAL EXAMINATION: VITAL SIGNS: At this time include pulse 96, respiratory rate 18, blood pressure 146/88 and temperature 98.0. GENERAL: This is a chronically ill-appearing female patient who appears to be in no distress. HEENT: Examination of the head is normocephalic. Nose and throat are clear. NECK: Supple. LUNGS: Clear. HEART: Regular rhythm without murmur. ABDOMEN: Soft. Bowel sounds are present. Sacral ulcer demonstrates a stage 4 sacral ulceration that is clean, healthy and granulating. It does not appear much smaller than the last time I saw her, but there really is no overt evidence of any infection. There are no exposed deep structures at this time. NEUROLOGIC: The patient is alert and does move all 4 extremities. LABORATORY DATA: Includes sodium 140, potassium 4.2, chloride 107, CO2 of 25, BUN 15, creatinine 0.5 and glucose 258. White blood cell count 10.9 with a hemoglobin of 7.6. CLINICAL IMPRESSION: 1. Stage 4 sacral pressure ulceration. 2. Severe lower extremity pain likely by diabetic neuropathy. 3. History of moderate protein-calorie malnutrition. Last albumin was 2.2 in November. 4. Diabetes mellitus. 5. Anemia. RECOMMENDATIONS: At this point in time, we will resume wound VAC while she is here in the hospital. She will need a low air loss mattress, q. 2 hour turning and repositioning, aggressive nutritional support to maximize wound healing. The patient is agreeable to this plan of care. I appreciate being asked to see her in consultation. <ELECTRONICALLY SIGNED> By: John Kuhn MD 04/02/18 0921 1310 0207 John Kuhn MD /nt
[2018-03-26 21:45] VITALS: BP 144/112
[2018-03-26 22:55] LABS: ABSOLUTE NEUTROPHILS 7.7 thou/uL (1.4-8.2); BASOPHILS 0.6 % (0.0-2.0); HEMATOCRIT 28.5 % (37.0-47.0); HEMOGLOBIN 8.7 gm/dL (12.0-15.0); LYMPHOCYTES 19.7 % (24.0-44.0); MCH 20.4 pg (26.0-34.0); MCHC 30.3 g/dL (28.0-37.0); MCV 67.2 fL (80.0-100.0); MONOCYTES 9.1 % (1.0-8.0); PLATELET COUNT 616 thou/uL (150-400); POLYS 70.6 % (36.0-66.0); RBC 4.24 mil/uL (4.20-5.00); RDW 19.5 % (10.5-14.5); WBC 10.9 thou/uL (4.0-11.0)
[2018-03-26 22:57] LABS: CALCIUM 9.9 mg/dL (8.5-10.1); CREATININE 0.6 mg/dL (0.6-1.0)
[2018-03-26 23:14] LABS: URINE BILIRUBIN NEGATIVE (Negative); URINE BLOOD TRACE (Negative); URINE CLARITY CLEAR; URINE COLOR YELLOW; URINE GLUCOSE-RANDOM* NEGATIVE (Negative); URINE KETONES NEGATIVE (Negative); URINE PROTEIN (DIPSTICK) 1+ (Negative); URINE SPECIFIC GRAVITY 1.025 (1.005-1.035)
[2018-03-26 23:26] LABS: URINE LEUKOCYTES-REFLEX 1+ (Negative); URINE NITRITE-REFLEX POSITIVE (Negative)
[2018-03-26 23:35] LABS: ANISOCYTOSIS 2+; HYPOCHROMASIA 2+; LARGE PLATELETS OCCASIONAL; MICROCYTES 2+; POLYCHROMASIA 1+
[2018-03-26 23:38] LABS: CASTS None Seen /LPF (None Seen); MUCUS 0-3 Light strn/LPF (None Seen); SQUAMOUS None Seen /LPF (0-3); URINE RBC 0-2 Rare /HPF (0-2)
[2018-03-26 23:39] LABS: BACTERIA-REFLEX >30 Many /HPF (None Seen); CRYSTALS None Seen /LPF (None Seen)
[2018-03-27 01:56] VITALS: BP 140/74
[2018-03-27 02:27] VITALS: BP 123/67
[2018-03-27 03:34] VITALS: BP 130/71
[2018-03-27 07:35] LABS: HEMATOCRIT 25.8 % (37.0-47.0); HEMOGLOBIN 7.6 gm/dL (12.0-15.0); MCH 20.1 pg (26.0-34.0); MCHC 29.6 g/dL (28.0-37.0); MCV 67.7 fL (80.0-100.0); RBC 3.8 mil/uL (4.20-5.00); RDW 19.5 % (10.5-14.5); WBC 10.9 thou/uL (4.0-11.0)
[2018-03-27 07:45] VITALS: BP 146/88
[2018-03-27 07:46] LABS: CALCIUM 9.1 mg/dL (8.5-10.1); CREATININE 0.5 mg/dL (0.6-1.0); POTASSIUM 4.2 mmol/L (3.5-5.1)
[2018-03-27 09:44] LABS: ABSOLUTE RETIC COUNT 0.0514 10^6/uL; OBSERVED RETIC COUNT 1.36 % (0.6-2.6)
[2018-03-27 09:49] LABS: % SATURATION 4 % (20-39); IRON 10 ug/dL (50-170); TIBC 244 ug/dL (250-450)
[2018-03-27 16:33] VITALS: BP 104/60
[2018-03-27 19:50] VITALS: BP 104/65
[2018-03-28 04:54] VITALS: BP 127/83
[2018-03-28 08:06] VITALS: BP 121/72
[2018-03-28 13:48] VITALS: BP 103/67
[2018-03-28 19:17] VITALS: BP 104/65
[2018-03-28 23:58] VITALS: BP 104/65
[2018-03-29 03:11] VITALS: BP 120/61
[2018-03-29 06:23] LABS: HEMATOCRIT 24.8 % (37.0-47.0); HEMOGLOBIN 7.6 gm/dL (12.0-15.0); MCH 20.4 pg (26.0-34.0); MCHC 30.6 g/dL (28.0-37.0); MCV 66.9 fL (80.0-100.0); RBC 3.71 mil/uL (4.20-5.00); RDW 19.7 % (10.5-14.5)
[2018-03-29 07:42] VITALS: BP 126/82
[2018-03-29 14:48] VITALS: BP 126/86
[2018-03-29 19:38] VITALS: BP 108/67
[2018-03-30 01:01] VITALS: BP 108/67
[2018-03-30 08:00] VITALS: BP 114/70
[2018-03-30 15:00] VITALS: BP 129/73
[2018-03-30 19:45] VITALS: BP 129/80
[2018-03-31 01:55] VITALS: BP 129/80
[2018-03-31 05:31] VITALS: BP 108/70
[2018-03-31 07:45] VITALS: BP 109/65
[2018-03-31 15:05] VITALS: BP 110/66
[2018-03-31 19:30] VITALS: BP 106/62
[2018-04-01 04:02] VITALS: BP 133/81
[2018-04-01 05:45] LABS: HEMATOCRIT 25.1 % (37.0-47.0); HEMOGLOBIN 7.9 gm/dL (12.0-15.0); MCH 20.8 pg (26.0-34.0); MCHC 31.5 g/dL (28.0-37.0); MCV 66.2 fL (80.0-100.0); PLATELET COUNT 610 thou/uL (150-400); RDW 19.6 % (10.5-14.5); WBC 8.7 thou/uL (4.0-11.0)
[2018-04-01 06:00] LABS: CALCIUM 10.2 mg/dL (8.5-10.1); CREATININE 0.6 mg/dL (0.6-1.0); POTASSIUM 4.6 mmol/L (3.5-5.1)
[2018-04-01 08:05] VITALS: BP 106/60
[2018-04-01 08:32] LABS: ABSOLUTE NEUTROPHILS 5.7 thou/uL (1.4-8.2)
[2018-04-01 08:33] LABS: ANISOCYTOSIS 2+; HYPOCHROMASIA 2+; MICROCYTES 3+; POLYCHROMASIA OCCASIONAL
[2018-04-01] MEDS ORDERED: IRON325 PO (12:49)
[2018-04-01] MEDS ORDERED: CYMBALTA30 MG PO (12:53)
[2018-04-01] MEDS ORDERED: OXYCODONE HCL 55 MG PO (12:54)
== END 2018-04-01 16:59 | DRG 871 ==
LOC: ER 21:42 → 4W 03-27 00:50 → EROBS 03-27 00:50 → 4W 03-27 02:36
PROVIDERS: Emergency Medicine; Hospitalist; Internal Medicine Geriatric Medicine; Nurse Practitioner Family
DX: A41.9 Sepsis, unspecified organism (principal); L89.154 Pressure ulcer of sacral region, stage 4; N17.9 Acute kidney failure, unspecified; E44.0 Moderate protein-calorie malnutrition; N39.0 Urinary tract infection, site not specified; E11.42 Type 2 diabetes mellitus with diabetic polyneuropathy; R00.0 Tachycardia, unspecified; M62.84 Sarcopenia; G89.29 Other chronic pain; I48.2 Chronic atrial fibrillation; M48.061 Spinal stenosis, lumbar region without neurogenic claudication; D50.9 Iron deficiency anemia, unspecified; M54.9 Dorsalgia, unspecified; M19.90 Unspecified osteoarthritis, unspecified site; I10 Essential (primary) hypertension; Z96.653 Presence of artificial knee joint, bilateral; E03.9 Hypothyroidism, unspecified; Z87.440 Personal history of urinary (tract) infections; Z90.49 Acquired absence of other specified parts of digestive tract; Z98.1 Arthrodesis status; Z79.899 Other long term (current) drug therapy; Z87.891 Personal history of nicotine dependence; Z74.01 Bed confinement status; Z68.32 Body mass index [BMI] 32.0-32.9, adult
CPT/HCPCS: 10045; 10047

== ENCOUNTER → 2018-05-20 | Outpatient (CLI) | payer OTHER ==
[~2018-05-20] MED LIST changes: +CYMBALTA30 MG PO
== END ==
LOC: HYPER
DX: E11.622 Type 2 diabetes mellitus with other skin ulcer (principal); L89.154 Pressure ulcer of sacral region, stage 4; L98.496 Non-pressure chronic ulcer of skin of other sites with bone involvement without evidence of necrosis; E11.42 Type 2 diabetes mellitus with diabetic polyneuropathy; I10 Essential (primary) hypertension; M19.90 Unspecified osteoarthritis, unspecified site; Z79.4 Long term (current) use of insulin; Z87.891 Personal history of nicotine dependence

== ENCOUNTER 2018-05-29 13:10 | Inpatient (IN) | payer OTHER ==
[~2018-05-29] VITALS: Ht 144.8 cm; Wt 57.3 kg
--- NOTE | ~2018-05-29 | HC ---
[facility] [place] [address] CONSULTATION Name: ZOYA BAZZI Room #: 455-P ADM IN M.R.#: [id number] Admission: 05/29/18 Attend Phys: Kahlil Travis MD Discharge: Date of : 39 Report #: [id number] THIS REPORT FOR: //name// CC: Katharine Travis DATE OF SERVICE: 05/30/2018 REASON FOR CONSULTATION: Chronic sacral stage 4 pressure ulcer. HISTORY OF PRESENT ILLNESS: The patient is a 77-year-old woman with a history of paraparesis, severe peripheral neuropathy, severe debility and immobility after severe cervical spinal stenosis and cervical fusion on 07/17 who has developed a chronic sacral stage 4 pressure ulcer. Wound has been cared for for many months with recurrent hospitalizations, longterm facility admits and wound care. She was admitted to the Emergency Room with complaint of increased upper extremity weakness. The patient is hopeful to return to her home independently soon. Wound care is consulted due to her large sacral chronic pressure ulcer. PAST MEDICAL HISTORY: Obesity, cervical stenosis with fusion, history of closed head injury, diabetes, chronic sacral stage 4 pressure ulcer, debility and immobility, severe peripheral neuropathy, history of urinary tract infection, hypertension and degenerative arthritis. ALLERGIES: No known drug allergies. MEDICATIONS: Include ferrous sulfate, Cymbalta, oxycodone, Lopressor, aspirin, vitamin B12, insulin detemir, Timoptic, Lyrica, vitamin C, MiraLax, Tylenol and Synthroid. PAST SURGICAL HISTORY: Cholecystectomy, cervical fusion, debridement of sacral decubitus wound in the past. SOCIAL HISTORY: Does not smoke or drink. PHYSICAL EXAMINATION: GENERAL: Shows a well-appearing, alert, morbidly obese, elderly woman who is alert, pleasant and, conversant. HEENT: Mucous membranes are moist. NECK: Supple. ABDOMEN: Obese and soft. EXTREMITIES: Lower extremities show weakness. Examination of the patient's back shows a chronic appearing 8 cm x 7 cm x 3 cm deep sacral stage 4 pressure ulcer with exposed sacral bone at the base. There is 2 cm of wound with deep [address] [address] CONSULTATION Name: ZOYA BAZZI Room #: 455-P ADM IN M.R.#: [id number] Admission: 05/29/18 Attend Phys: Kahlil Travis MD Discharge: Date of : 39 Report #: [id number] subcutaneous wound undermining on the right side. There is exposed sharp spiculated sacral bone present. 80% of the wound is granulated with some exposed bone, no necrotic tissue present. IMPRESSION: 1. Obesity. 2. Paraparesis, lower extremity weakness, severe debility and immobility. 3. Peripheral neuropathy. 4. Diabetes mellitus type 2 with skin ulcer. 5. 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 PLAN: Order wound dressing for quarter-strength Dakin's, soaked moist Kerlix, wound to be packed twice daily. Exposed spiculated bone may need to be surgically debrided at the bedside or otherwise. Offload with low air loss mattress. Wound care team will follow and take care of this chronic wound during hospitalization. ADDENDUM: I spoke with general surgeon, Dr. James Reddy, about the patient. Dr. Reddy plans to take the patient to the operating room tomorrow to create a diverting colostomy to protect the wound. At the time of surgery, he will also likely debride the spiculated bone to improve chances for healing of that wound. Surgery will take place tomorrow during colostomy and wound debridement. By: [id number] [id number] Christian Linda MD /nt
--- NOTE | ~2018-05-29 | HC ---
[facility] [address] [address] CONSULTATION Name: ZOYA BAZZI Room #: 455-P ADM IN M.R.#: [id number] Admission: 05/29/18 Attend Phys: Kahlil Travis MD Discharge: Date of : 38 Report #: [id number] THIS REPORT FOR: //name// CC: Katharine Travis DATE OF SERVICE: 06/01/2018 HISTORY OF PRESENT ILLNESS: The patient is a 77-year-old female previously known to me with a history of severe premorbid peripheral neuropathy, bilateral lower extremity weakness, prior cervical spine fusion, stage 4 sacral pressure ulcer, premorbidly bed/wheelchair bound. Apparently, had a intermediate facility stay at [facility] and from there was discharged home with daughter and family. She was rolling side to side to keep off the sacral wound, needed assistance of family as far as basic transfers into the wheelchair, which the daughter would utilize a gait belt to help assist the patient in to the wheelchair from the bed. It was noted to be discharged home from the intermediate facility on 05/19/2018. She was admitted with worsening upper extremity weakness, difficulty for family handling her, noted to have an acute encephalopathy, likely toxic metabolic in nature. She has been by Surgery and the plan is for her to undergo a diverting colostomy later today with the stage 4 pressure ulcer for which there have been problems with soiling. We are seeing her in rehabilitation medicine consultation. PAST MEDICAL HISTORY: Includes the premorbid severe peripheral neuropathy with bilateral lower extremity weakness. She has had the prior cervical fusion back in 07/2017 when she had prior quadriparesis. She also has had bilateral total knee replacements for severe degenerative arthritis and has been nonambulatory since that time. This occurred around 2014 or 2015. Past history also includes diabetes mellitus type 2, hypertension, atrial fibrillation with rapid ventricular response. MEDICATIONS: Please see the full medication listing. SOCIAL HISTORY: She has been living at home with her daughter, has had someone with her 23/12. She has had a low air loss mattress and needed assistance with gait belt of the daughter to get her in and out of bed. This was for transfers from the bed into the wheelchair. REVIEW OF SYSTEMS: Did not offer any current complaints of chest pain, shortness of breath, abdominal discomfort. PHYSICAL EXAMINATION: GENERAL: A 77-year-old -[place] female previously known to me. No obvious distress. [address] [address] CONSULTATION Name: ZOYA BAZZI Room #: 455-P [facility] IN M.R.#: [id number] Admission: 05/29/18 Attend Phys: Kahlil Travis MD Discharge: Date of : 39 Report #: [id number] VITAL SIGNS: Temperature 98.1, pulse 100, respirations 18, blood pressure 148/98. She is pleasant, alert. Facies appeared symmetric. Defer some answers to her daughter. EXTREMITIES: Upper extremities, her strength is probably a grade 3+ to 4- proximally and distally she is more of a 4-. Lower extremities: She is able to move both lower extremities, probably 3+ proximally and 3 distally. She has definite decreased sensation in a stocking distribution with weakness, dorsiflexion and eversion bilaterally. There is no focal calf swelling. She is mod assist with sit to stand. Bed mobility is max assist. Toileting is dependent. She was able to stand for 60 seconds in physical therapy. ASSESSMENT: A 77-year-old -[place]uvian female previously known to me with the following problem list: 1. Severe peripheral neuropathy with premorbid lower extremity paraparesis. 2. Premorbid quadriparesis, status post cervical spine fusion, 07/17/2017. 3. Past history of metabolic encephalopathy, 01/17/2018 for which she was on the acute inpatient rehab [place]. 4. Stage 4 sacral pressure ulcer, has undergone a diverting colostomy. 5. Medical complexity with generalized debilitation. 6. Diabetes mellitus. 7. Paroxysmal atrial fibrillation. PLAN: Acute hospital days and intermediate facility days will need to be calculated. I am uncertain if she would meet criteria for another acute in-hospital inpatient rehabilitation stay. She is to go down for the diverting colostomy later on today. We will be glad to follow along with you. By: [id number] Jose G Flores MD /LINDSEY
[2018-05-29 13:11] VITALS: BP 129/88
--- NOTE | 2018-05-29 15:28 | EKG ---
[address] [place] [address] ELECTROCARDIOGRAM REPORT Name: ZOYA BAZZI Room #: ESTEBAN Dominguez#: [id number] Admission: 05/29/18 Attend Phys: Discharge: Date of : 39 Report #: [id number] THIS REPORT FOR: //name// [facility] ED Test Date: 2018-05-29 Test Time: 13:58:53 Pat Name: ZOYA BAZZI Department: Room: Gender: F Postal Inspector: WG : 1940 Requested By: Payam Osorio Order Number: [id number] MD: Que Prado Measurements Intervals [place] Rate: 104 P: -32 CT: 129 QRS: -24 QRSD: 75 T: -34 QT: 341 QTc: 449 Interpretive Statements Sinus tachycardia Borderline left axis deviation Borderline T abnormalities, inferior leads Compared to ECG 03/26/2018 23:00:03 T-wave abnormality now present Atrial premature complex(es) no longer present ST (T wave) deviation no longer present Electronically Signed On 05-29-2018 15:28:16 [employer] by Que Prado [email or web address] <ELECTRONICALLY SIGNED> By: Que Prado MD 05/29/18 1528 1358 1358 Que Prado MD /IVONNE
[2018-05-29 15:58] LABS: ABSOLUTE NEUTROPHILS 5.1 thou/uL (1.4-8.2); BASOPHILS 0.2 % (0.0-2.0); HEMATOCRIT 34.3 % (37.0-47.0); HEMOGLOBIN 10.7 gm/dL (12.0-15.0); LYMPHOCYTES 25.8 % (24.0-44.0); MONOCYTES 10.3 % (1.0-8.0); PLATELET COUNT 419 thou/uL (150-400); POLYS 63.7 % (36.0-66.0); RBC 4.84 mil/uL (4.20-5.00); RDW 21.8 % (10.5-14.5); WBC 8.1 thou/uL (4.0-11.0)
[2018-05-29 16:12] LABS: ANION GAP 8 mmol/L (7-16); BUN 16 mg/dL (7-18); CALCIUM 10.2 mg/dL (8.5-10.1); CHLORIDE 104 mmol/L (98-107); CO2 27 mmol/L (21-32); CREATININE 0.6 mg/dL (0.6-1.0); GLUCOSE 219 mg/dL (74-106); POTASSIUM 3.6 mmol/L (3.5-5.1); SODIUM 139 mmol/L (136-145)
[2018-05-29 16:21] LABS: TROPONIN-I <0.06 ng/mL (<0.06)
[2018-05-29 16:39] LABS: ANISOCYTOSIS 1+; HYPOCHROMASIA 1+
[2018-05-29 16:40] LABS: MICROCYTES 1+
[2018-05-29 16:45] LABS: URINE COLOR YELLOW
[2018-05-29 16:46] LABS: URINE CLARITY SL HAZY; URINE GLUCOSE-RANDOM* NEGATIVE (Negative); URINE KETONES NEGATIVE (Negative); URINE PROTEIN (DIPSTICK) 1+ (Negative); URINE SPECIFIC GRAVITY >= 1.030 (1.005-1.035)
[2018-05-29 16:47] LABS: URINE BILIRUBIN NEGATIVE (Negative); URINE BLOOD 3+ (Negative); URINE LEUKOCYTES-REFLEX NEGATIVE (Negative); URINE NITRITE-REFLEX NEGATIVE (Negative); URINE UROBILINOGEN 0.2 E.U./dl (0.2-1.0)
[2018-05-29 16:51] LABS: SQUAMOUS 0-3 Few /LPF (0-3); URINE WBC-REFLEX 0-5 Rare /HPF (0-5)
[2018-05-29 16:52] LABS: AMORPHOUS URATES Few /LPF (None Seen); CASTS None Seen /LPF (None Seen)
[2018-05-29 17:56] VITALS: BP 129/88
[2018-05-29 20:10] VITALS: BP 136/45
[2018-05-29 20:45] VITALS: BP 124/77
[2018-05-30 00:21] VITALS: BP 101/69
--- NOTE | 2018-05-30 01:39 | NUR ---
ASSUMED CARE FROM ED UPON ARRIVAL TO UNIT PT ALERT AND ORIENTED X4 DATA BASE COMPLETED AND ASSESSMENT COMPLETED. PT NOTED WITH LARGE COCCYX WOUND, PICTURE TAKEN , WET TO DRY DRESSING APPLIED, THEN PT HAD LARGE LOOSE STOOL THAT WENT INTO DRESSING AND WOUND. CLEAN AND RE DRESSED . HS SNACK GIVEN PT ATE 100 % TOLERATED WELL, DISCUSSED PLAN OF CARE AND AGREEABLE. INFANTRY OFFICER INTACT SHOWS NSR. BED ALARM ON FOR SAFETY.
[2018-05-30 03:54] VITALS: BP 127/84
[2018-05-30 06:22] LABS: BASOPHILS 2.1 % (0.0-2.0); HEMATOCRIT 30.1 % (37.0-47.0); HEMOGLOBIN 9.3 gm/dL (12.0-15.0); LYMPHOCYTES 25.8 % (24.0-44.0); MCH 21.8 pg (26.0-34.0); MCHC 30.9 g/dL (28.0-37.0); MCV 70.4 fL (80.0-100.0); MONOCYTES 11.2 % (1.0-8.0); PLATELET COUNT 410 thou/uL (150-400); POLYS 60.9 % (36.0-66.0); RBC 4.28 mil/uL (4.20-5.00); WBC 6.6 thou/uL (4.0-11.0)
[2018-05-30 06:38] LABS: CALCIUM 9.3 mg/dL (8.5-10.1); CREATININE 0.6 mg/dL (0.6-1.0); MAGNESIUM 1.5 mg/dL (1.8-2.4); POTASSIUM 4.2 mmol/L (3.5-5.1)
[2018-05-30 07:40] VITALS: BP 134/82
[2018-05-30 15:50] VITALS: BP 113/75
--- NOTE | 2018-05-30 18:33 | NUR ---
PATIENT ALERT AND ORIENTED X4, SINUS TACHYCARDIA ON SEWING MACHINE OPERATOR. ON ROOM AIR, CLEAR LUNG SOUNDS. PATIENT INCONTINENT. WOUND TO BUTTOCK AREA. PAIN CONTROLLED WITH MEDICATION. NO SIGNS OF ACUTE DISTRESS NOTED AT THIS TIME. WILL CONTINUE TO MONITOR.
[2018-05-30 19:27] VITALS: BP 140/84
--- NOTE | 2018-05-31 01:27 | NUR ---
PATIENT ASSESSED AND IS ALERT X 4. SKIN WARM AND DRY. PATIENT IS W/C BOUND. LIVES AT HOME. ON ROOM AIR.COMPLAINING OF FEET AND LEGS PAIN FROM NEURIPATHY PAIN. PAIN MEDICATIONS GIVEN WITH RELIEF. NO EDEMA NOTED TO LOWER EXTREMITIES. HAS A WOUND ON HER COCCYX AND TREATMENT DONE WITH WET TO DRY AND DAKINS SOLUTION AND ABD APPLIED AND TAPED. IS INCONT OF URINE. TURNED Q 2 HOURS AND PRN. TAKING MEDICATIONS WELL. TELE- SHOWS ST WITH OCC PAC'S. REMIANS ON BEDREST. IV SITE HEALTHY. ON ROOM AIR. LUNGS CTA. PP 2. CONT PLAN OF CARE. AND PAIN CONTROL, WILL POSS HAVE SURGERY WITH COLOSTOMY ON FRIDAY .
[2018-05-31 05:30] VITALS: BP 137/64
[2018-05-31 07:46] VITALS: BP 141/79
[2018-05-31 15:23] VITALS: BP 145/87
[2018-05-31 19:18] VITALS: BP 121/78
--- NOTE | 2018-05-31 19:30 | NUR ---
PT STABLE THROUGHOUT SHIFT. PT'S DRESSING CHANGED. C/O PAIN, MEDS ALLEVIATED. CONSENT FOR PROCEDURE TOMORROW SIGNED AND ON CHART. ORDERED RECORDS FROM [facility], THEY WILL SEND TO THIS EVENING. PT RESTING COMFORTABLY.
[2018-06-01] VITALS (7 sets, daily range): BP systolic 133–154; BP diastolic 72–98
[2018-06-01 07:51] LABS: HEMATOCRIT 29.6 % (37.0-47.0); HEMOGLOBIN 9.1 gm/dL (12.0-15.0); MCH 21.5 pg (26.0-34.0); MCHC 30.6 g/dL (28.0-37.0); MCV 70.3 fL (80.0-100.0); RBC 4.21 mil/uL (4.20-5.00); RDW 21.3 % (10.5-14.5)
[2018-06-01 07:59] LABS: CALCIUM 9.7 mg/dL (8.5-10.1); CREATININE 0.5 mg/dL (0.6-1.0); MAGNESIUM 1.5 mg/dL (1.8-2.4); POTASSIUM 4.1 mmol/L (3.5-5.1)
--- NOTE | 2018-06-01 09:30 | NUR ---
cm visited with pt and daughter travis at bedside. pt is a & o x 3, pleasant and able to make her needs know "having some pain"/pt, cm notified beside nurse rt to co of pain. pt minreva for surgery today, debridement and colostomy. pt reported " live with dominique callejas' for now, has senior apt, use wheel chair. have hospital bed. use [facility] home health, been to [facility] [place] [place] and [facility] in past. use wound care dr here."/guera and daughter. 5 n consulted. will cont following as needed for dc needs.
--- NOTE | 2018-06-01 11:16 | NUR ---
Nutrition: assess d/t consult for wound. Pt admitted for weakness/dizziness. Hx of decubitus wound, peripheral neuropathy, DM, and HTN. Currently NPO for possible surgery to wound today. Based on previous admissions, no significant weight loss over past 2 years. Pt states her appetite was fine before admit. She previously liked orange Sánchez and Glucern. Will reorder BID once diet advances. Otherwise, consider low risk.
--- NOTE | 2018-06-01 13:05 | NUR ---
CM NOTIFIED THAT [facility] IS ASSESSING FOR POSSIBLE ADMISSION. THEY ARE LOOKING AT HOW MANY ACUTE AND SKILLED DAYS PT MAY HAVE AND AWAITING THERAPY EVALS TO MAKE A FINAL DETERMINATION. CM TO FOLLOW INDICATED WITH DC PLANNING.
--- NOTE | 2018-06-01 13:48 | NUR ---
[facility] CONSULT RECEIVED THIS DATE AND DR. AGUILAR ASSESSED THE PATIENT. SEE DR. AGUILAR'S CONSULT FOR DETAILS. PATIENT HAS HAD MULTIPLE ACUTE CARE, ACUTE INPATIENT REHAB, AND SNF STAYS. PAROLE OR PROBATION OFFICER PHONES PATIENT'S DAUGHTER, ARMAND BAZZI AND SUZI VOICE MAIL MESSAGE REQUESTING DAUGHTER RETURN PHONE CALL. PLAN TO DISCUSS DATES OF ACUTE AND SNF STAYS TO HELP DETERMINE IF PATIENT HAS SNF AND/OR ACUTE BENEFIT DAYS AVAILABLE. WILL ANTICIPATE RETURN PHONE CALL FROM PATIENT'S DAUGHTER.
[2018-06-02 04:25] LABS: ABSOLUTE NEUTROPHILS 9.8 thou/uL (1.4-8.2); BASOPHILS 0.8 % (0.0-2.0); HEMATOCRIT 30.8 % (37.0-47.0); HEMOGLOBIN 9.3 gm/dL (12.0-15.0); LYMPHOCYTES 11.2 % (24.0-44.0); MCH 21.6 pg (26.0-34.0); MCHC 30.2 g/dL (28.0-37.0); MCV 71.3 fL (80.0-100.0); PLATELET COUNT 427 thou/uL (150-400); RBC 4.32 mil/uL (4.20-5.00); RDW 21.2 % (10.5-14.5); WBC 12.1 thou/uL (4.0-11.0)
[2018-06-02 05:05] LABS: CALCIUM 9.6 mg/dL (8.5-10.1); CREATININE 0.5 mg/dL (0.6-1.0); MAGNESIUM 1.5 mg/dL (1.8-2.4); POTASSIUM 3.8 mmol/L (3.5-5.1); TOTAL BILIRUBIN 0.3 mg/dL (<0.1-1.0); TOTAL PROTEIN 7.6 g/dL (6.4-8.2)
[2018-06-02 05:58] LABS: ANISOCYTOSIS 2+; MICROCYTES 1+
[2018-06-02 05:59] LABS: HYPOCHROMASIA 2+; POLYCHROMASIA OCCASIONAL
[2018-06-02 06:41] VITALS: BP 122/61
--- NOTE | 2018-06-02 07:32 | NUR ---
Assumed care at 1845. Pt requested morphine I.V for pain. Pt denies chest pain. She is turn Q2H. No identified needs at the moment. Will continue to monitor.
[2018-06-02 08:12] VITALS: BP 118/68
[2018-06-02 14:04] VITALS: BP 97/55
--- NOTE | 2018-06-02 16:22 | NUR ---
ASSUMED CARE AT 0700. AXOX4. CALLS APPROPRIATELY. S/P I&D SACRUM AND COLOSTOMY 06/01/18. SACRUM DRESSING NOT OPENED PER S/P SURGICAL INTERVENTION. DRESSING INTACT AND NOT BLOOD NOTED AT THIS TIME. COLOSTOMY SITE PRODUCING MINIMAL AMT OF SEROSANGUIOUS DRAIN AT THIS TIME. NO FECES NOTED. BOWEL SOUNDS PRESENT IN ALL 4QUADS AT THIS TIME. AWAITING 'S ROUNDING FOR TODAY FOR FURTHER CARE INSTRUCTION. PAIN IS MANAGED WITH OXY. REPOSITION Q2. ATB CHANGED TO PO FOR UTI. NO S/S ACUTE DISTRESS NOTED OR REPORTED AT THIS TIME. WILL CONT TO MONITOR FOR ANY CHANGES OR PROGRESS.
[2018-06-02 19:40] VITALS: BP 105/45
--- NOTE | 2018-06-03 04:12 | NUR ---
Pt. rested quietly at intervals during the night when checked on during frequent rounds. She did c/o abdominal pain and was given pain med (see emar) with some relief noted. Dressing to buttocks is intact. Pt. turned and repositioned. Bed alarm is on.
[2018-06-03 04:57] VITALS: BP 118/69
[2018-06-03 05:32] LABS: HEMATOCRIT 28.5 % (37.0-47.0); HEMOGLOBIN 8.7 gm/dL (12.0-15.0); MCHC 30.7 g/dL (28.0-37.0); MCV 71.6 fL (80.0-100.0); PLATELET COUNT 424 thou/uL (150-400); RBC 3.97 mil/uL (4.20-5.00); RDW 21.5 % (10.5-14.5); WBC 8.5 thou/uL (4.0-11.0)
[2018-06-03 05:49] LABS: ALBUMIN 1.9 g/dL (3.4-5.0); CALCIUM 9.5 mg/dL (8.5-10.1); CREATININE 0.6 mg/dL (0.6-1.0); MAGNESIUM 1.6 mg/dL (1.8-2.4); POTASSIUM 4.5 mmol/L (3.5-5.1); TOTAL BILIRUBIN 0.2 mg/dL (<0.1-1.0); TOTAL PROTEIN 6.4 g/dL (6.4-8.2)
[2018-06-03 06:21] LABS: ANISOCYTOSIS 2+; HYPOCHROMASIA 1+; MICROCYTES 2+; PLATELET ESTIMATE INCREASED; POLYCHROMASIA 1+
[2018-06-03 08:00] VITALS: BP 108/55
--- NOTE | 2018-06-03 10:30 | NUR ---
ostomy care; pouch outer edges soiled w/ dry blood, changed using 2 piece system, nguyen cut to fit, w/ adapt ring under wafer, stoma pink viable budded, no stool yet, peristomal skin intact, receptive to education, supplies and info at bs, medical staff manager informed of care, will cont to follow
--- NOTE | 2018-06-03 11:33 | NUR ---
TOWARDS POC PT A/O X4, VSS, AFEBRILE. PAIN MANAGED BY MEDS. COLOSTOMY CHANGED BY OSTOMY NURSE. STILL NO STOOL OUTPUT. POST I&D DRESSING STILL INTACT. NO CONCERNS VOICED AT THIS TIME WILL CONTINUE TO MONITOR.
[2018-06-03 16:00] VITALS: BP 127/79
--- NOTE | 2018-06-03 16:30 | NUR ---
WOUND CONSULT: PT. WAS SEEN TODAY FOR EVALUATION OF WOUND POST OP. PT. IS WELL KNONW TO THE WOUND CARE TEAM. PT. HAS A STAGE 4 PRESSURE ULCER TO HER SACRUM. PT. HAD SURGICAL DEBRIDEMENT OF THIS WOUND BY DR. GUERRA ON 06/01/18 WITH COLOSTOMY PLACEMENT. RECOMMENDATIONS: WOUND CARE TO SACRUM: GENTLY CLEANSE AREA WITH WOUND CLEANSER OR NORMAL SALINE, PACK WITH DAKIN SOAKED KERLIX, COVER WITH ABD, SECURE WITH TAPE, COMPLETE CARES BID. TURN Q2 HOURS KEEP PT. OFF WOUNDS MUCH POSSIBLE KEEP ON JOBY MATRESS. PT. AND STAFF NURSE WERE INSTRUCTED ON WOUND CARE.
[2018-06-03 19:44] VITALS: BP 129/77
[2018-06-04 03:49] VITALS: BP 144/73
--- NOTE | 2018-06-04 04:00 | NUR ---
Pt. rested quietly at intervals during the night when checked on during frequent rounds. She c/o genralized abdominal pain and was given pain meds (see emar) with some relief noted. Turned and repostioned during the night. Bed alarm is on.
[2018-06-04 05:26] LABS: HEMATOCRIT 28.2 % (37.0-47.0); HEMOGLOBIN 8.5 gm/dL (12.0-15.0); MCH 21.6 pg (26.0-34.0); MCHC 30.2 g/dL (28.0-37.0); MCV 71.4 fL (80.0-100.0); RBC 3.95 mil/uL (4.20-5.00); WBC 8.2 thou/uL (4.0-11.0)
[2018-06-04 05:41] LABS: CALCIUM 9.8 mg/dL (8.5-10.1); CREATININE 0.5 mg/dL (0.6-1.0); MAGNESIUM 1.6 mg/dL (1.8-2.4); POTASSIUM 5.1 mmol/L (3.5-5.1)
[2018-06-04 08:05] VITALS: BP 122/68
--- NOTE | 2018-06-04 14:38 | NUR ---
CM MET [facility] PT AT BEDSIDE THIS AFTERNOON AND INDICATED THAT CARE TEAM ARE LIKELY RECOMMENDING POST ACUTE CARE STAY UPON DISHCARGE. PT INDICATED THAT SHE WOULD LIKE TO SEE IF SHE COULD RETURN TO [facility] FOR CONTINUED THREAPIES ONCE MEDICALLY STABLE. CM SENT CLINICAL UPDATE TO [facility]. CM TO FOLLOW INDICATED WITH DC PLANNING.
--- NOTE | 2018-06-04 14:50 | NUR ---
QUIET UNEVENTFUL DAY. TURNING Q2H. SACRAL WOUND PINK/MOIST. DAKIN'S W-D DRESSING DONE. MAIN COMPLAINT IS ABD AND LEFT LEG PAIN. MEDICATED WITH OXY IR AND HAD PARTIAL RELIEF. BROWN PASTY STOOL NOTED IN COLOSTOMY. STOMA RED/MOIST. PASSING FLATUS. FALL PRECAUTIONS IN PLACE WITH BED ALARM ON AND BED IN LOW POSITION. MONITORING ON FREQUENT ROUNDS.
[2018-06-04 15:00] VITALS: BP 108/62
--- NOTE | 2018-06-04 15:00 | NUR ---
CM SPOKE HANNAH CASTRO IN ADMISSIONS AT [facility] AND SHE INDICATED THEY WOULD BE ABLE TO ACCEPT PT ONCE MEDICALLY STABLE. CM TO FOLLOW INDICATED WITH DC PLANNING.
[2018-06-04 19:13] VITALS: BP 112/64
[2018-06-05 07:55] VITALS: BP 129/66
[2018-06-05] MEDS ORDERED: LEVAQUIN 500 M500 M5 PO (09:08)
[2018-06-05] MEDS ORDERED: NOVOLOG100 UNIT/1 SUBQ (09:09)
[2018-06-05] MEDS ORDERED: TIMOLOL MA0.25 %/52 OPHTHALMIC (09:09)
--- NOTE | 2018-06-05 09:44 | NUR ---
ostomy care; pouch intact, changed using 2 piece system nguyen cut to fit w/ adapt ring, stoma pink viable budded w/ soft form brown stool, peristomal skin intact, very receptive to education, info and supplies at bs, cleaning staff supervisor informed of care, will cont to follow prn
--- NOTE | 2018-06-05 09:46 | NUR ---
PHYSICIAN INDICATED THAT PT IS MEDICALLY STABLE TO DISHCARGE TO [facility] THIS DAY. CHART COPY MADE ORDERS ARE TO BE FAXED. TRANSPORT TO BE ARRANGED.
--- NOTE | 2018-06-05 10:48 | NUR ---
DISCHARGE ORDERS RECEIVED. PATIENT DISCHARGING TO [facility]. CHART COPIED PER BI APPLICATION DEVELOPER. ORDERS FAXED TO [facility]RE[facility] OF OP ADMISSIONS, VERIFIED RECEIVED. TRANSPORTATION ARRANGED PER [facility], 1300 HOURS. DAUGHTER NICHE' NOTIFIED OF DISCHARGE AND TIME OF TRANSPORT. UNIT NOTIFIED AND CONTACT NUMBER PROVIDED FOR REPORT.
--- NOTE | 2018-06-05 10:57 | NUR ---
WOUND FOLLOW UP: PT. WAS SEEN TODAY BY DR. IBRAHIM AND MYSELF. PT. WOUND ON HER SACRUM IS CLEAN AND HEALTHY IN APPEARENCE AT THIS TIME. PT. IS READY FOR DISCHARGE TO [facility] TODAY. DISCHARGE PLANNING WAS DISCUSSED. RECOMMENDATIONS: CONTINUE WITH CURRENT PLAN OF CARE. PT. AND STAFF NURSE WERE INSTRUCTED ON PLAN OF CARE.
--- NOTE | 2018-06-05 12:19 | NUR ---
POST OP DAY 4, A/OX4, PAIN MANAGED WITH MEDICAITON, WOUND CARE GIVEN AND PICTURE TAKEN. COLOSTOMY SOFT BROWN STOOL.BAG CHANGED TODAY. EXTERNAL FEMALE CATHETER INPLACE. PLANS TO DC TO HALF-WAY. CALL LIGHT IN REACH.
== END 2018-06-05 13:51 | DRG 853 ==
LOC: ER 13:10 → 4W 17:37 → EROBS 17:37 → 4W 20:05 → ENTRNSPT 06-01 12:10 → 4W 06-05 13:51
PROVIDERS: Nurse Practitioner; Physician Assistant; Surgery; ADMIT Internal Medicine
PROC: 0QB10ZZ Excision of Sacrum, Open Approach (ICD-10-PCS; principal; 2018-06-01)
PROC: 0D1L4Z4 Bypass Transverse Colon to Cutaneous, Percutaneous Endoscopic Approach (ICD-10-PCS; principal; 2018-06-01)
DX: A41.9 Sepsis, unspecified organism (principal); L89.154 Pressure ulcer of sacral region, stage 4; G92 Toxic encephalopathy; G82.20 Paraplegia, unspecified; M86.8X8 Other osteomyelitis, other site; E11.69 Type 2 diabetes mellitus with other specified complication; I10 Essential (primary) hypertension; M19.90 Unspecified osteoarthritis, unspecified site; G89.29 Other chronic pain; M54.9 Dorsalgia, unspecified; E03.9 Hypothyroidism, unspecified; Z96.653 Presence of artificial knee joint, bilateral; E66.9 Obesity, unspecified; E11.42 Type 2 diabetes mellitus with diabetic polyneuropathy; E11.622 Type 2 diabetes mellitus with other skin ulcer; I48.0 Paroxysmal atrial fibrillation; D50.9 Iron deficiency anemia, unspecified; H40.9 Unspecified glaucoma; D63.8 Anemia in other chronic diseases classified elsewhere; Z90.49 Acquired absence of other specified parts of digestive tract; Z68.27 Body mass index [BMI] 27.0-27.9, adult; Z87.828 Personal history of other (healed) physical injury and trauma; Z79.899 Other long term (current) drug therapy
CPT/HCPCS: 10045; 50010; 50101; 50249; 50386; 50403; 50555; 50962; 52265; 53307; 53310; 54118; 56462; 56526; 56528; 57092; 62110; 62900; 70005

== ENCOUNTER 2018-08-12 14:03 | Inpatient (IN) | payer OTHER ==
[~2018-08-12] VITALS: Ht 144.8 cm; Wt 65.3 kg
[~2018-08-12 14:03] MED LIST changes: +LEVAQUIN 500 M500 M5 PO; +NOVOLOG100 UNIT/1 SUBQ; +TIMOLOL MA0.25 %/52 OPHTHALMIC
[2018-08-12 14:41] VITALS: BP 142/70
[2018-08-12 15:35] LABS: ABSOLUTE NEUTROPHILS 6.9 thou/uL (1.4-8.2); BASOPHILS 0.6 % (0.0-2.0); HEMATOCRIT 32.4 % (37.0-47.0); LYMPHOCYTES 17.4 % (24.0-44.0); MCH 22.9 pg (26.0-34.0); MCHC 30.9 g/dL (28.0-37.0); MONOCYTES 8.9 % (1.0-8.0); PLATELET COUNT 403 thou/uL (150-400); POLYS 73.1 % (36.0-66.0); RBC 4.38 mil/uL (4.20-5.00); RDW 20.3 % (10.5-14.5); WBC 9.4 thou/uL (4.0-11.0)
[2018-08-12 16:00] LABS: CALCIUM 9.8 mg/dL (8.5-10.1); CREATININE 0.9 mg/dL (0.6-1.0); POTASSIUM 4.2 mmol/L (3.5-5.1)
[2018-08-12 17:57] LABS: HYPOCHROMASIA 1+; LARGE PLATELETS OCCASIONAL; MICROCYTES 1+; POLYCHROMASIA OCCASIONAL
[2018-08-12 18:24] VITALS: BP 142/70
[2018-08-12 18:56] VITALS: BP 153/75
[2018-08-12 19:33] VITALS: BP 146/82
[2018-08-13 03:37] LABS: URINE BILIRUBIN NEGATIVE (Negative); URINE BLOOD TRACE (Negative); URINE CLARITY CLEAR; URINE COLOR YELLOW; URINE GLUCOSE-RANDOM* 2+ (Negative); URINE KETONES NEGATIVE (Negative); URINE LEUKOCYTES-REFLEX TRACE (Negative); URINE NITRITE-REFLEX NEGATIVE (Negative); URINE PROTEIN (DIPSTICK) NEGATIVE (Negative); URINE UROBILINOGEN 0.2 E.U./dl (0.2-1.0)
--- NOTE | 2018-08-13 03:51 | NUR ---
ADMISSION COMPLETED. ORDERS IMPLEMENTED. GONZALEZ INSERTED. IV DRESSING C/D/I, NO SIGNS OF INFILTRATION. PT ALERT AND ORIENTED. ISOLATION PRECAUTIONS IMPLEMENTED. PT REPORTS MILD PAIN, SEE EMAR. PT DENIES N/V. COLOSTOMY BAG IN PLACE, STOMA BEEFY PINK. PT CALL LIGHT AND PERSONAL BELONINGS WITHIN REACH. WILL CONTINUE POC UNTIL EOS.
[2018-08-13 04:39] VITALS: BP 158/89
[2018-08-13 08:37] VITALS: BP 140/81
--- NOTE | 2018-08-13 11:23 | NUR ---
PT A&OX4, NON AMB. TRANFERS WITH ASSIST TO W/C OR SCOOTER. NS@100 INFUSING IN R FA. DENIES PAIN AT THIS TIME. TOLERATING PO WELL. WILL CONT POC WITH IVAB THERAPY.
--- NOTE | 2018-08-13 14:20 | NUR ---
WOUND CONSULT: PT. WAS SEEN TODAY BY DR. CANNON AND MYSELF. PT. IS WELL KNOWN TO THE WOUND CARE TEAM. PT. HAS A CHRONIC BUT, STABLE STAGE 4 PRESSURE ULCER TO HER SACRUM. WOUND WAS CULTURED TODAY WITH EVALUATION. WOUND BED IS HEALTHY IN APPERANCE. DISCUSSED THE OPTION OF SUGICAL INTERVETION FOR SKIN SUB FOR CONTINUE PROGRESS TOWARDS HEALING. RECOMMENDATIONS: WOUND CARE TO SACRUM: GENTLY CLEANSE WITH WOUND CLEANSER OR NORMAL SALINE, PACK WITH DAKIN'S MOIST GAUZE, COVER WITH ABD, SECURE WITH TAPE, COMPLETE CARES DAILY AND PRN. PT. AND STAFF NURSE WERE INSTRUCTED ON PLAN OF CARE.
--- NOTE | 2018-08-13 15:16 | NUR ---
ASSESSMENT-PT IS CURRENTLY STAYING WITH HER DTR. SHE STILL HAS HER OWN SR APT TOO. AT DTR'S HOME SHE USES A POWER WC AND A HOSPITAL BED. DTR OR GRANDSON HELP HER TRANSFER. PT HAS HAD [facility] IN THE PAST AND WOULD LIKE HH SERVICES AGAIN AT [place]. DTR ASSISTS WITH ADLS. PT HAS BEEN TO REHAB AT [facility] IN THE PAST. THERAPIES HAVE BEEN ORDERED. FOLLOWING TO ASSIST WITH DC PLANNING.
[2018-08-13 16:15] VITALS: BP 136/80
[2018-08-13 20:58] VITALS: BP 153/76
--- NOTE | 2018-08-14 04:06 | NUR ---
PT C/O PAIN ON HER BACK,MANAGED WITH PO PAIN MED.DRSG ON HER SACRUM CHANGED DUE TO SOILAGE.PT ABLE TO REPOSITION SELF IN BED.IVF INFUSING. GONZALEZ TO DD.PT ABLE TO MAKE HER NEEDS KNOWN.CALL LIGHT WITHIN REACH.
[2018-08-14 05:04] VITALS: BP 151/98
[2018-08-14 07:44] VITALS: BP 153/96
--- NOTE | 2018-08-14 11:09 | NUR ---
Assess due to notification of pt with chronic stage IV pressure ulcer to sacrum. Seen by wound care and noted to have healthy wound bed appearance. Pt typically eats well and uses glucerna shakes which have been ordered. +Sarcopenia indicated by PURCHASING DIRECTOR. BG usually controlled, but admitted with glucose intiatilly >500, now trending down but still >200. On ss insulin and has orders to start long acting insulin at hs. Large wt variations noted in hx. Low nutrition risk with appropriate nutrition interventions in place.
--- NOTE | 2018-08-14 14:00 | NUR ---
FAXED REFERRAL TO [facility] OP. SPOKE WITH JAN AND SHE RECEIVED REFERRAL DCP WILL FAXED PT/OT NOTES TO FACILITY ONCE AVAILABLE. DCP TO FOLLOW.
--- NOTE | 2018-08-14 14:12 | NUR ---
WOUND FOLLOW UP: PT. WAS SEEN TODAY BY DR. CANNON AND MYSELF. PT. WAS STARTED ON WOUND VAC THEARPY TODAY. PT. TOLERATED PROCEDURE WELL. MEASURMENTS OF SACRAL WOUND TODAY WERE: 5.7 X 5.5 X 3.2. PLAN FOR PT. TO GO TO THE OR BEGINING OF THE WEEK FOR DEBRIDEMENT AND PLACEMENT OF SKIN SUB. RECOMMENDATIONS: CONTINUE WITH CURRENT PLAN OF CARE. PT. AND STAFF NURSE WERE INSTRUCTED ON PLAN OF CARE.
[2018-08-14 17:26] VITALS: BP 124/70
--- NOTE | 2018-08-14 18:10 | NUR ---
ASSUMED CARE OF PT AT 0700. ASSESSMENT COMPLETED. A&O,X4. ROOM AIR. ACHS, INSULIN GIVEN PER SLIDING SCALE. SACRAL WOUND, WOUND VAC PLACED TODAY. PAIN MEDS GIVEN FOR PAIN AFTER PROCEDURE. COLOSTOMY IN PLACE, 150 LIQUID BROWN STOOL. GONZALEZ IN PLACE, 250 LIGHT CLEAR YELLOW URINE NOTED. PT IN STABLE CONDITION. NO OTHER CHANGE IN STATUS.
--- NOTE | 2018-08-14 19:23 | NUR ---
VANCO TROUGH DRAWN LATE, IV ABX HELD PENDING RESULTS. NIGHT NURSE TO ADMINISTER DOSE.
[2018-08-14 21:05] VITALS: BP 138/76
--- NOTE | 2018-08-15 04:26 | NUR ---
ASSUMED PT CARE 190. PT ALERT AND ORIENTED. REASSESSMENT COMPLETE. VSS. PT REPORTS PAIN, SEE EMAR. IV DRESSING C/D/I, NO SIGNS OF INFITLRATION. COLOSTOMY IN PLACE- BURPED X2. GONZALEZ IN PLACE. WOUND VAC TO WOUND- IN PLACE AND WORKING. PT REMINDED AND ENCOURAGED TO CHANGE POSITIONS, ASSISTED WITH POSITION CHANGES FREQUENTLY. PT DENIES N/V. PT CALL LIGHT AND PERSONAL BELONGINGS WITHIN REACH. WILL CONTINUE POC UNTIL EOS.
[2018-08-15 05:45] VITALS: BP 141/77
[2018-08-15 07:30] VITALS: BP 144/93
[2018-08-15 08:00] VITALS: BP 104/52
[2018-08-15 16:45] VITALS: BP 120/69
--- NOTE | 2018-08-15 19:42 | NUR ---
ASSUMED CARE OF PT AT 0700. ASSESSMENT COMPLETED. A&O,X4. C/O SACRAL AND NEUROPATHY PAIN, MEDS GIVEN ORDERED. WOUND VAC IN PLACE. IV ABX GIVEN ORDERED. MAININTING CONTACT PRECAUTIONS. ROOM AIR. GONZALEZ IN PLACE DUE TO SACRAL WOUND. CHRONIC COLOSTOMY IN PLACE. PT IN STABLE CONDITION. VSS. ACHS, INSULIN GIVEN ORDERED. END OF SHIFT.
[2018-08-15 22:30] VITALS: BP 149/91
[2018-08-16 04:55] VITALS: BP 148/89
--- NOTE | 2018-08-16 07:58 | NUR ---
PT LYING IN BED. LORTAB PROVIDING PAIN RELIEF. WOUND VAC CAME OFF OF SACRAL WOUND--REPLACED WITH WET TO DRY. RESTING COMFORTABLY. NO NEEDS VOICED. CALL LIGHT WITHIN REACH. WILL CONTINUE TO PROVIDE FREQUENT OBSERVATION.
--- NOTE | 2018-08-16 10:51 | NUR ---
ASSESMENT COMPLETED. VSS. A/O. PAIN MANAGED BY MEDS ORDERED. NO NTOED SOA. NO NV. MEDS GIVEN ORDERED TOELRATED WELL. DRESSING TO SACRUM CHANGED. COLOSTOMY APPLIANCE CHANGED. REPOSITIONED. WILL CONT. TO MONITOR.
[2018-08-16 16:42] VITALS: BP 140/78
[2018-08-16 19:43] VITALS: BP 140/65
[2018-08-17 05:16] VITALS: BP 144/96
--- NOTE | 2018-08-17 07:30 | HC ---
[facility] [place] [address] [address] [place] [address] CONSULTATION Name: ZOYA BAZZI Room #: 428-P ADM IN M.R.#: [id number] Admission: 08/12/18 ������������������ Attend Phys: Susan Lazar Discharge: ������������������ Date of : 38 Report #: [id number] THIS REPORT FOR: //name// CC: Susan Ryan DATE OF SERVICE: 08/13/2018 CHIEF COMPLAINT: Stage 4 sacral pressure ulceration. HISTORY OF PRESENT ILLNESS: This is a 77-year-old female patient with whom I am familiar from previous hospitalizations. I have seen her as an outpatient as well as at extended care facilities. She has had a longstanding stage 4 sacral pressure ulcer and she has undergone previous surgical debridement. She has been managed with a wound VAC. She has had slow, but steady improvement. She was admitted at this time for increasing pain, weakness and drainage from the wound. PAST MEDICAL HISTORY: Positive for diabetes mellitus, chronic anemia, hypertension, peripheral neuropathy, stage 4 sacral pressure ulceration. ALLERGIES: None. MEDICATIONS: Include amlodipine, Synthroid, pregabalin, ferrous sulfate, cholecalciferol, zinc, ascorbic acid, senna, polyethylene glycol, Sánchez, tolterodine, fluconazole, baclofen, Bactrim. ALLERGIES: None. FAMILY HISTORY: Noncontributory. REVIEW OF SYSTEMS: CONSTITUTIONAL: The patient denies fever, chills, weight loss or generalized weakness. NEUROLOGICAL: The patient denies focal weakness, numbness or tingling. EYES: The patient denies visual changes, redness or drainage. ENT: The patient denies earache, nasal drainage or sore throat. CARDIOVASCULAR: The patient denies chest pain, palpitations or diaphoresis. PULMONARY: The patient denies cough or shortness of breath. GASTROINTESTINAL: The patient denies nausea, vomiting, diarrhea or abdominal pain. ORTHOPEDIC: The patient denies pain or swelling in the extremities. The patient is aware of the ulceration on her sacral region. Other systems in a 14-point review of systems are negative. PHYSICAL EXAMINATION: [facility] [address] [place] [address] CONSULTATION Name: ZOYA BAZZI Room #: 428-[facility] IN M.R.#: [id number] Admission: 08/12/18 ������������������ Attend Phys: Susan Lazar Discharge: ������������������ Date of : 38 Report #: [id number] VITAL SIGNS: At this time include pulse 92, temperature 98.3, respiratory rate 18, blood pressure 136/80. GENERAL: This is a chronically ill-appearing male patient who appears to be in minimal distress. HEENT: Head normocephalic. Nose and throat clear. NECK: Supple. LUNGS: Clear. HEART: Regular rhythm. ABDOMEN: Soft. Bowel sounds present. Colostomy is functioning well in the midline. SKIN: Sacral region demonstrates a stage 4 sacral pressure ulcer and there is some odor. There is fairly good granulation tissue noted throughout. NEUROLOGIC: The patient is alert. She does move all 4 extremities spontaneously. CLINICAL IMPRESSION: 1. Stage 4 sacral pressure ulceration with likely underlying osteomyelitis. 2. Diabetes mellitus with hyperglycemia. 3. Hypertension. 4. Status post cervical fusion. RECOMMENDATIONS: At this point in time, the patient will be admitted to the hospital for ongoing treatment and evaluation. We will resume her wound VAC today. We will consult general surgery for sacral debridement and placement of skin substitute. She will need aggressive nutritional support, PT and OT as well. ��������������������������������������������� <ELECTRONICALLY SIGNED> ���������������������������������������� By: John Kuhn MD ��������������������������������������������� 08/17/18 0730 [id number] John Kuhn MD /nt
[2018-08-17 07:39] VITALS: BP 158/94
--- NOTE | 2018-08-17 07:40 | NUR ---
WOUND VAC HAS BEEN OF, WET TO DRY DRESSINGS UNTIL REPLACED. TURNED Q2HRS. EFFECTIVE PAIN RELIEF WITH PRN HYDROCODONE, SCHEDULED LYRICA. GONZALEZ DRAINING WELL SINCE CHANGED DURING DAY SHIFT.
[2018-08-17 09:51] LABS: HEMOGLOBIN 8.7 gm/dL (12.0-15.0); MCH 22.8 pg (26.0-34.0); MCHC 31.1 g/dL (28.0-37.0); MCV 73.3 fL (80.0-100.0); RBC 3.82 mil/uL (4.20-5.00); WBC 7.2 thou/uL (4.0-11.0)
--- NOTE | 2018-08-17 12:55 | NUR ---
Assumed pt care at 7am.Pt in bed very upset and angry related breakfast brought in and was told not to eat until surgeon comes in.Rn apologized and service recovery done.Dr Reddy paged and he rounded on pt.Surgery postponed till am.Milk and crackers given per pt request.Assessment completed. vss.Pt c/o headache,iv pain med given with partial relief.Tylenol given at lunch.Piv infiltrated.Will replace when pt done with lunch.Will continue to monitor.
--- NOTE | 2018-08-17 15:35 | NUR ---
WOUND FOLLOW UP: PT. WAS SEEN TODAY BY DR. CANNON AND MYSELF. PT. WOUND VAC DRESSING CAME OFF YESTERDAY AND STAFF NURSE APPLIED A WET TO DRY DRESSING. PT. IS SCHEDULED TO GO TO THE OR TOMORROW FOR SURGICAL DEBRIDEMENT AND WOUND VAC WILL BE REAPPLIED POST SURGERY. PT. WAS IN GOOD SPIRITS TODAY AND HAS NO COMPLAINTS. RECOMMENDATIONS: CONTINUE WITH CURRENT PLAN OF CARE. PT. AND STAFF NURSE WERE INSTRUCTED ON PLAN OF CARE.
--- NOTE | 2018-08-17 16:15 | NUR ---
PLAN WILL BE FOR PT TO HAVE SURGERY TOMORROW BY DR GUERRA. FOLLOWING TO ASSIST WITH DC PLANNING. PT HOSPEFUL TO GO TO [facility] POST-OP.
[2018-08-17 16:24] VITALS: BP 124/72
[2018-08-17 22:58] VITALS: BP 127/72
[2018-08-18 05:48] VITALS: BP 160/85
[2018-08-18 08:38] VITALS: BP 151/88
--- NOTE | 2018-08-18 10:17 | NUR ---
Assumed pt care at 7am.Pt in bed getting ready for surgery.Assessment completed.vss.Lantus given prior to going to surgery at 0750 per cart accompanied by transporter.Received call from pt's dtr after pt left the floor,updates given.Will continue to monitor.
--- NOTE | 2018-08-18 13:18 | NUR ---
DCP NOTIFIED ADM. AT [facility] THAT PT. POSS. DC TOMORROW AND WILL NEED ABX IV X 1 WK POST DC. DCP TO FOLLOW.
--- NOTE | 2018-08-18 16:45 | NUR ---
WOUND FOLLOW UP: PT. WAS SEEN TODAY BY DR. CANNON AND MYSELF. WOUND VAC WAS APPLIED IN THE OR TODAY POST SURGERY BY WOUND CARE. WOUND BED IS BEEFY RED WITH SKIN SUB IN PLACE. RECOMMENDATIONS: CONTINUE WITH CURRENT PLAN OF CARE. PT. AND STAFF NURSE WERE INSTRUCTED ON PLAN OF CARE.
[2018-08-18 16:57] VITALS: BP 133/68
[2018-08-18 20:00] VITALS: BP 133/58
[2018-08-19 04:30] VITALS: BP 147/104
--- NOTE | 2018-08-19 07:57 | NUR ---
Q 2HR TURN PROVIDED. PAIN MEDS GIVEN WITH DOREEN MÉNDEZ. AFEBRILE.
[2018-08-19 08:00] VITALS: BP 138/83
--- NOTE | 2018-08-19 11:32 | NUR ---
ASSESMENT COMPLETED. VSS. A/O. PAIN MANAGED BY MEDS ORDERED. NO NOTED SOA. NO NV. REPOSITIONED. GONZALEZ TO DD. COLOSTOMY INTACT NOTED PROTUDING STOMA. PT RESTING IN BED AT THIS TIME, WILL CONT. TO MONITOR.
[2018-08-19 17:11] VITALS: BP 138/65
--- NOTE | 2018-08-19 17:31 | NUR ---
WOUND FOLLOW UP: PT. WAS SEEN TODAY BY DR. CANNON AND MYSELF. PT. WOUND VAC IS C/D/I AT THIS TIME. PT. HAS NO COMPLAINTS. RECOMMENDATIONS: CONTINUE WITH CURRENT PLAN OF CARE. PT. AND STAFF NURSE WERE INSTRUCTED ON PLAN OF CARE.
[2018-08-19 19:29] VITALS: BP 168/71
--- NOTE | 2018-08-19 23:08 | NUR ---
VASCULAR ACCESS CONSULTED FOR A PICC FOR HOME ABX. LINE PLACED SUCCESSFULLY PER HOSPITAL P&P. TIP AT THE [facility] AND IS RELEASED FOR USE. PLEASE SEE INSERTION NOTE FOR DETAILS
[2018-08-20 05:35] VITALS: BP 166/89
[2018-08-20 05:43] LABS: HEMATOCRIT 27.6 % (37.0-47.0); HEMOGLOBIN 8.7 gm/dL (12.0-15.0); MCH 22.9 pg (26.0-34.0); MCHC 31.5 g/dL (28.0-37.0); MCV 72.6 fL (80.0-100.0); PLATELET COUNT 347 thou/uL (150-400); RDW 19.6 % (10.5-14.5); WBC 6.8 thou/uL (4.0-11.0)
[2018-08-20 05:56] LABS: ALBUMIN 1.9 g/dL (3.4-5.0); CALCIUM 8.9 mg/dL (8.5-10.1); CREATININE 0.5 mg/dL (0.6-1.0); MAGNESIUM 1.3 mg/dL (1.8-2.4); POTASSIUM 3.8 mmol/L (3.5-5.1); TOTAL BILIRUBIN 0.1 mg/dL (<0.1-1.0); TOTAL PROTEIN 6.9 g/dL (6.4-8.2)
[2018-08-20 06:25] LABS: ABSOLUTE NEUTROPHILS 3.9 thou/uL (1.4-8.2)
[2018-08-20 06:26] LABS: ANISOCYTOSIS 2+; HYPOCHROMASIA 1+; MICROCYTES 1+; PLATELET ESTIMATE NORMAL; POLYCHROMASIA 1+
[2018-08-20 08:08] VITALS: BP 157/91
--- NOTE | 2018-08-20 10:06 | PATH ---
[facility] [address] [address] PATHOLOGY RPT PROCEDURE Name: SUSANA BAZZI Room #: 428-P [facility] IN M.R.#: [id number] ������������������ Admission: 08/12/18 ������������������ Date of : 39 Discharge: Report #: [id number] Path Case #: [id number] [facility] Accession Number: [id number] . 01 Material submitted: . SACRAL WOUND . 01 Clinical history: . Sacral decubitis ulcer . 02 Diagnosis: Sacral wound, debridement: - Ulceration associated with fibrinoid degeneration and acute inflammation extending into underlying subcutaneous tissue. 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 (IUV:pit 08/19/2018) QTP/08/19/2018 . 02 Electronically signed: . Saranya Ridley MD, Pathologist NPI- [id number] . 01 Gross description: . The specimen is received in formalin, labeled "Susana Bazzi, sacral wound", is an elongated, indurated, roche-white skin with underlying roche-pink subcutaneous tissue measuring 5.5 x 1.5 x 0.7 cm. The specimen is serially sectioned to show a roche-pink cut surface. Lobby Porter tissue is submitted in A1. (SWS; 08/18/2018) SHS/SHS . 02 Pathologist provided ICD-10: L98.499, L08.9 . 02 CPT . 778531 Specimen Comment: A courtesy copy of this report has been sent to Specimen Comment: [phone], . Specimen Comment: Report sent to ,DR VILA / DR ALEJANDRE Specimen Comment: A duplicate report has been generated due to demographic updates. Performed at: [address] [id number] MD Artemio Wells MD Phone: [phone] Performed at: 02 [facility] [address] [place] [address] PATHOLOGY RPT PROCEDURE Name: SUSANA BAZZI Room #: 428-P ADM IN M.R.#: [id number] ������������������ Admission: 08/12/18 ������������������ Date of : 39 Discharge: Report #: [id number] Path Case #: [id number] [address] [place] [id number] MD Saranya Ridley MD Phone: [phone]
[2018-08-20] MEDS ORDERED: MEROPENEM 1 GM V1 GM IVPB (10:45)
[2018-08-20] MEDS ORDERED: OXYCODONE HCL 55 MG PO (10:47)
[2018-08-20] MEDS ORDERED: LYRICA 50 MG50 MG PO (10:47)
[2018-08-20] MEDS ORDERED: VANCO1GM IV (10:47)
[2018-08-20] MEDS ORDERED: NOVOLOG100 UNIT/1 SUBQ (10:48)
[2018-08-20] MEDS ORDERED: LANTUS100 UNIT/M SUBQ (10:48)
--- NOTE | 2018-08-20 11:10 | HC ---
[facility] [place] [address] CONSULTATION Name: ZOYA BAZZI Room #: 428-P [facility] IN M.R.#: [id number] Admission: 08/12/18 ������������������ Attend Phys: Susan Lazar Discharge: ������������������ Date of : 39 Report #: [id number] THIS REPORT FOR: //name// CC: Susan Ryan DATE OF SERVICE: 08/19/2018 INFECTIOUS DISEASE CONSULTATION: REASON FOR CONSULTATION: I was asked to evaluate concerning sacral osteomyelitis. HISTORY OF PRESENT ILLNESS: The patient was a 77-year-old with history of spinal stenosis and peripheral neuropathy. Following spinal fusion, she has developed sacral decubitus. She is very limited in her activity. She had debridement in 05/2018 with polymicrobial growth including MRSA, Proteus, Klebsiella and group C Streptococcus. She was treated with a prolonged course of antibiotics and wound care. Discharged home several weeks ago, only to have the wound worsen. She has been incontinent of urine. Elevated blood glucose. Overall failure to thrive. Yesterday, she underwent debridement of her sacrum and ischium. Tissue cultures were sent. Wound culture on presentation revealed MRSA, group C Streptococcus and yeast so far. No fever, chills or sweats. Pain is under control. Now, has a wound VAC in place. REVIEW OF SYSTEMS: Denies any cough, sputum, nausea, vomiting. She has a diverting colostomy. She has indwelling Godfrey catheter. A 10-point review of system was negative other than what is described above. ALLERGIES: None known. MEDICATIONS: As noted on her MAR including vancomycin and Merrem. PAST MEDICAL HISTORY: Hypertension, degenerative arthritis, diabetes, atrial fibrillation, chronic back pain, anemia, peripheral neuropathy, sacral decubitus, cholecystectomy, bilateral total knee arthroplasty, cervical fusion. FAMILY HISTORY: Noncontributory. SOCIAL HISTORY: Nonsmoker, no significant alcohol intake. PHYSICAL EXAMINATION: VITAL SIGNS: Afebrile and hemodynamically stable. GENERAL: Alert and cooperative and pleasant, appeared her stated age. She was obese. EYES: Without scleral icterus. [facility] [address] [place] [address] CONSULTATION Name: ZOYA BAZZI Room #: 428-P ADM IN M.R.#: [id number] Admission: 08/12/18 ������������������ Attend Phys: Susan Lazar Discharge: ������������������ Date of : 39 Report #: [id number] MOUTH: Without mucositis. NECK: Supple. No rashes. Wounds were dressed with a wound VAC in place. No palpable adenopathy. CHEST: Clear. HEART: Regular, without murmur. ABDOMEN: Soft and nontender with unremarkable colostomy. GENITOURINARY: External genitalia without mass or lesion, with indwelling Godfrey catheter. EXTREMITIES: Without clubbing, cyanosis or edema. Cranial nerves intact. Strength in upper and lower extremities was symmetric, although general debility mostly in the lower extremities. Mood normal. LABORATORY STUDIES: Cultures as noted above. Blood cultures are negative. Vancomycin trough 19, creatinine 0.9, hemoglobin 8.7, white count 7.2, and platelet count 358,000. IMPRESSION: 1. A 77-year-old postoperative day #1, debridement of her sacrum and ischium. Underlying osteomyelitis with polymicrobial growth. 2. Anemia. 3. General debility following spinal stenosis. 4. Hypertension. 5. Degenerative arthritis. 6. Diabetes. 7. Atrial fibrillation. RECOMMENDATION: We will continue vancomycin, meropenem, awaiting final culture results from surgical specimen performed yesterday. We will need to arrange outpatient infusion, likely at prison level. Place PICC catheter. Check followup laboratory studies. Anticipate 4-6 weeks of IV antibiotic therapy. ��������������������������������������������� <ELECTRONICALLY SIGNED> ���������������������������������������� By: Stewart Goel MD ��������������������������������������������� 08/20/18 1110 1518 0230 Stewart Goel MD /nt
--- NOTE | 2018-08-20 11:43 | NUR ---
PT. DISCHARGING TODAY TO [facility] SPOKE WITH YESENIA AND SHE HAS AUTH. FAXED DC ORDERS/SUMMARY TO FACILITY ORDERS RECEIVED. DCP NOTIFIED DTR (NICHE) OF DISCHARGE AND TIME OF TRANSPORT. UNIT NOTIFIED AND CHART COPY PER US. RN TO CALL REPORT TO [phone].
--- NOTE | 2018-08-20 15:11 | NUR ---
WOUND FOLLOW UP: PT. WAS SEEN TODAY BY DR. CANNON AND MYSELF. PT. WILL BE DISCHARGING TO [facility] TODAY. DISCHARGE PLANNING WAS DISCUSSED. RECOMMENDATIONS: CONTINUE WITH CURRENT PLAN OF CARE. PT. AND STAFF NURSE WERE INSTRUCTED ON PLAN OF CARE.
--- NOTE | 2018-08-20 16:59 | NUR ---
Assessment completed.vss.Pt in bed very excited about dc to [facility] today.Meds given as ordered and well tolerated.Dr Lazar here,dc order noted. Report given to fiona whitten at [facility]. At 1530, pt dc per van in stable condition.
== END 2018-08-20 15:33 | DRG 853 ==
LOC: ER 14:03 → EROBS 16:49 → 4E 16:49
PROVIDERS: Nurse Practitioner Family; Student in an Organized Health Care Education/Training Program; ADMIT Hospitalist
PROC: 0QB10ZZ Excision of Sacrum, Open Approach (ICD-10-PCS; principal; 2018-08-18)
PROC: 02HV33Z Insertion of Infusion Device into Superior Vena Cava, Percutaneous Approach (ICD-10-PCS; 2018-08-19)
DX: A41.9 Sepsis, unspecified organism (principal); L89.154 Pressure ulcer of sacral region, stage 4; E44.0 Moderate protein-calorie malnutrition; M46.28 Osteomyelitis of vertebra, sacral and sacrococcygeal region; E87.1 Hypo-osmolality and hyponatremia; E11.42 Type 2 diabetes mellitus with diabetic polyneuropathy; E11.65 Type 2 diabetes mellitus with hyperglycemia; I10 Essential (primary) hypertension; D64.9 Anemia, unspecified; Z96.653 Presence of artificial knee joint, bilateral; E03.9 Hypothyroidism, unspecified; G89.29 Other chronic pain; M54.9 Dorsalgia, unspecified; E11.69 Type 2 diabetes mellitus with other specified complication; M62.84 Sarcopenia; E83.42 Hypomagnesemia; H40.9 Unspecified glaucoma; I48.2 Chronic atrial fibrillation; Z79.82 Long term (current) use of aspirin; Z79.899 Other long term (current) drug therapy; Z90.49 Acquired absence of other specified parts of digestive tract; Z68.31 Body mass index [BMI] 31.0-31.9, adult
CPT/HCPCS: 10084; 10783; 27000; 50010; 50101; 50366; 50386; 50403; 50643; 51412; 57141; 62110; 62900; 70005

== ENCOUNTER 2018-09-07 09:26 | Inpatient (IN) | payer OTHER ==
[~2018-09-07] VITALS: Ht 144.8 cm; Wt 65.8 kg
[~2018-09-07 09:26] MED LIST changes: +MEROPENEM 1 GM V1 GM IVPB; +VANCO1GM IV
[2018-09-07 09:27] VITALS: BP 163/92
[2018-09-07 10:09] LABS: URINE BILIRUBIN NEGATIVE (Negative); URINE BLOOD 3+ (Negative); URINE CLARITY CLOUDY; URINE COLOR YELLOW; URINE GLUCOSE-RANDOM* NEGATIVE (Negative); URINE KETONES NEGATIVE (Negative); URINE LEUKOCYTES 2+ (Negative); URINE NITRITE NEGATIVE (Negative); URINE PROTEIN (DIPSTICK) 1+ (Negative); URINE UROBILINOGEN 0.2 E.U./dl (0.2-1.0)
[2018-09-07 10:20] LABS: BACTERIA 1-9 Few /HPF (None Seen); CASTS None Seen /LPF (None Seen); CRYSTALS None Seen /LPF (None Seen); SQUAMOUS 0-3 Few /LPF (0-3); YEAST Present (None Seen)
[2018-09-07 10:21] LABS: HEMATOCRIT 27.9 % (37.0-47.0); HEMOGLOBIN 8.7 gm/dL (12.0-15.0); MCH 22.7 pg (26.0-34.0); MCV 73.2 fL (80.0-100.0); PLATELET COUNT 411 thou/uL (150-400); RBC 3.81 mil/uL (4.20-5.00); RDW 18.3 % (10.5-14.5); WBC 3.9 thou/uL (4.0-11.0)
[2018-09-07 10:27] LABS: CALCIUM 9.9 mg/dL (8.5-10.1); CREATININE 0.6 mg/dL (0.6-1.0); POTASSIUM 3.1 mmol/L (3.5-5.1)
[2018-09-07 10:33] LABS: ALBUMIN 2.2 g/dL (3.4-5.0); TOTAL BILIRUBIN 0.2 mg/dL (<0.1-1.0); TOTAL PROTEIN 7.7 g/dL (6.4-8.2)
[2018-09-07 10:57] LABS: ABSOLUTE NEUTROPHILS 1.1 thou/uL (1.4-8.2)
[2018-09-07 10:58] LABS: ANISOCYTOSIS 1+
[2018-09-07 10:59] LABS: LARGE PLATELETS OCCASIONAL
[2018-09-07] MEDS ORDERED: LYRICA 75 MG CA75 MG PO (13:26)
[2018-09-07] MEDS ORDERED: SYNTHROID100 MC1 PO (13:26)
[2018-09-07] MEDS ORDERED: OXYCODONE HCL 55 MG PO (13:30)
[2018-09-07] MEDS ORDERED: NOVOLOG100 UNIT/1 SUBQ (13:35)
[2018-09-07] MEDS ORDERED: CENTRUM SILVER1 EAC4 PO (13:41)
[2018-09-07] MEDS ORDERED: OTHER PO ×2 (13:45→13:46)
[2018-09-07] MEDS ORDERED: PRO-STAT LIQUID30 M1 PO (13:47)
[2018-09-07] MEDS ORDERED: VANCO1GM IV (13:49)
[2018-09-07 14:18] VITALS: BP 144/110
[2018-09-07 14:36] VITALS: BP 184/81
[2018-09-07 15:06] VITALS: BP 157/98
--- NOTE | 2018-09-07 18:23 | NUR ---
PT ADMITED FROM ER. PT ALERT AND ORIENTED. VSS. ADMISSION HX AND ASSESSMENT COMPLETED. WOUNDVAC INTACT ON SACRAL DECUB. WOUND NURSE COSULTED. NO OUTPUT NOTED ON THE COLOSTOMY BAG. HAS GONZALEZ CATHETER TO DD. PT ORIENTED TO THE ROOM AND THE CALL SYSTEM. WILL CONTINUE TO MONITOR.
[2018-09-07 21:09] VITALS: BP 137/87
[2018-09-08 00:06] VITALS: BP 136/95
[2018-09-08 05:36] LABS: HEMATOCRIT 25.2 % (37.0-47.0); HEMOGLOBIN 7.9 gm/dL (12.0-15.0); MCH 22.9 pg (26.0-34.0); MCHC 31.3 g/dL (28.0-37.0); MCV 73.2 fL (80.0-100.0); PLATELET COUNT 402 thou/uL (150-400); RBC 3.44 mil/uL (4.20-5.00); WBC 3.2 thou/uL (4.0-11.0)
[2018-09-08 05:56] LABS: CALCIUM 9.2 mg/dL (8.5-10.1); CREATININE 0.6 mg/dL (0.6-1.0); MAGNESIUM 1.5 mg/dL (1.8-2.4); POTASSIUM 3.5 mmol/L (3.5-5.1)
[2018-09-08 06:24] LABS: ABSOLUTE NEUTROPHILS 0.4 thou/uL (1.4-8.2); ANISOCYTOSIS 1+; BLASTS 1 %; HYPOCHROMASIA 2+; MICROCYTES 1+; NUCLEATED RBCS 1 /100WBC
--- NOTE | 2018-09-08 07:55 | NUR ---
ASSUMED CARE OF PT AT 1900. A&Ox4, AGITATED AT START OF SHIFT, COOPERATIVE AFTER NEEDS AND COMPLAINTS WERE ADDRESSED. COLOSTOMY BAG LEAKED, CHANGED, NOW INTACT AND PATENT. WOUND VAC WAS ALARMING FROM SACRAL WOUND. ATTEMPTED TO RESEAL BUT WAS UNABLE TO, REMOVED AND COVERED WITH DRESSING. WOUND CARE WAS COSULTED. PAIN CONTROLLED WITH PRN MEDS. TURNED Q 2. IV ANTIBX GIVEN ORDERED. AFEBRILE. SLOW PROGRESSION TOWARDS POC GOALS.
[2018-09-08 08:04] VITALS: BP 134/83
[2018-09-08] MEDS ORDERED: MIRALAX17 GM PO (09:51)
--- NOTE | 2018-09-08 10:35 | NUR ---
Patient has dc papers and orders ready to go to [facility], however Jessica from has been consulted and must see patient first before finalizing dc. Patient also needs authorization. DP called Jaime at [facility] in [place] to let her know auth is needed, dp will send paperwork for authorization to [facility]. Jaime was unavailable to speak with dp, so dp left information with Colleen at facility to give our phone number to Jaime and tell her we need authorization, patient ready to go. DP will send referral to facility
[2018-09-08 11:55] VITALS: BP 155/81
--- NOTE | 2018-09-08 12:59 | NUR ---
WOUND CONSULT: PT. WAS SEEN TODAY BY DR. CANNON AND MYSELF. PT. IS WELL KNOWN TO THE WOUND CARE TEAM. PT. HAS A RESOLVING STAGE 4 PRESSURE ULCER TO HER SACRUM THAT IS FREE OF ANY SIGNS OR SYMPTOMS OF INFECTION AT THIS TIME. RECOMMENDATIONS: WOUND CARE TO SACRUM: GENTLY CLEANSE, PACK WITH AQUECEL AG, THEN COVER WITH ABD, SECURE WITH TAPE, COMPLETE CARES DAILY AND PRN. PT. AND STAFF NURSE WERE INSTRUCTED ON PLAN OF CARE.
--- NOTE | 2018-09-08 13:20 | NUR ---
ASSESSMENT: CM REVIEWED CHART AND MET WITH PATIENT AT THE BEDSIDE. PT WAS ADMITTED FROM [facility] WHERE SHE WAS RECENTLY SENT FROM HERE ON 08/20. PT REPORTS THAT SHE PLANS ON GOING BACK THERE AT DISCHARGE. PT WAS ADMITTED FOR CONCERNS OF PROLAPSED STOMA. PT WAS EVALUATED AND IS MEDICALLY CLEAR TO GO BACK TO [facility]. CM NOTIFIED RICE [employer] WORKER TO NOTIFY FACILITY OF DISCHARGE AND TO SEE INSURANCE AUTH. CHART COPY WAS ORDERED. PT IS POSSIBLE DISCHARGE BACK TO FACILITY PENDNING INSURANCE AUTH. CM ATTMPTED TO CALL PATIENTS DAUGHTER BUT UNABLE TO REACH AND VM IS NOT SET UP.
[2018-09-08 16:53] VITALS: BP 151/102
--- NOTE | 2018-09-08 18:14 | NUR ---
DR. KILLIAN HERE. SPOKE WITH DR. VILA, PT DISCHARGE HAS BEEN CANCELLED. PT WHITE COUNT IS TOO LOW. PT VERY UPSET ABOUT THIS. DR. KILLIAN SPOKE WITH PT. ALSO PT DAUGHTER HERE AND HELPED CALM PT. DOWN. PLACED BACK ON MONITOR.
--- NOTE | 2018-09-08 18:17 | NUR ---
NOTIFIED FACILITY THAT TRANSFER HAS BEEN CANCELLED.
--- NOTE | 2018-09-08 18:41 | NUR ---
END OF SHIFT NOTE. PT TRANSFER CANCELLED. MEDICATED X 2 FOR PAIN WITH HYDROCODONE. VSS. SACRAL DRESSING INTACT.
[2018-09-08 19:45] VITALS: BP 140/91
[2018-09-09 04:15] VITALS: BP 149/100
--- NOTE | 2018-09-09 04:45 | NUR ---
SLEPT MOST OF SHIFT. ASSISTED TO REPOSITIONE EVERY 2 HOURS FOR COMFORT AND SKIN CARE. WORKING ON GOALS AND PLAN OF CARE FOR NOC. REINFORCED TEACHING FOR NEED TO REPOSITON FOR SACRAL DECUBE. PROGRESSING SLOWLY TOWARDS POSSIBLE DISCHARGE TODAY BACK TO [facility]. DENIES PRESENT COMPLAINTS OF PAIN. CONTINUE TO ASSES CLOELSY.
[2018-09-09 06:10] LABS: HEMATOCRIT 23.8 % (37.0-47.0); HEMOGLOBIN 7.5 gm/dL (12.0-15.0); MCH 23.1 pg (26.0-34.0); MCHC 31.6 g/dL (28.0-37.0); MCV 73.1 fL (80.0-100.0); PLATELET COUNT 387 thou/uL (150-400); RBC 3.26 mil/uL (4.20-5.00); RDW 18.2 % (10.5-14.5); WBC 3.3 thou/uL (4.0-11.0)
[2018-09-09 07:44] LABS: ABSOLUTE NEUTROPHILS 0.7 thou/uL (1.4-8.2); ATYPICAL LYMPHS 1 %
[2018-09-09 07:46] LABS: ANISOCYTOSIS 2+; HYPOCHROMASIA 1+; MICROCYTES 1+
[2018-09-09 07:47] LABS: POLYCHROMASIA OCCASIONAL
--- NOTE | 2018-09-09 08:09 | NUR ---
Assess due to notification of wound-wound care has assessed, pt has noted resolving stage IV pressure ulcer to sacrum, with no s/s infection indicated. Wt hx variable 137-153 lb since 11/2017, current wt within that range. Will usually drink glucerna shakes-will order. Physician has indicated protein calorie malnutrition: defer dx. Low nutrition risk with appropriate nutrition interventions in place.
[2018-09-09 08:29] VITALS: BP 156/91
--- NOTE | 2018-09-09 09:42 | HC ---
[facility] [address] [place] [address] CONSULTATION Name: ZOYA BAZZI Room #: 356-P ADM IN M.R.#: [id number] Admission: 09/07/18 ������������������ Attend Phys: Kahlil Travis MD Discharge: ������������������ Date of : 39 Report #: [id number] THIS REPORT FOR: //name// CC: Miranda Travis DATE OF SERVICE: 09/08/2018 REASON FOR CONSULTATION: I was asked to evaluate concerning sacral osteomyelitis. HISTORY OF PRESENT ILLNESS: The patient is a 77-year-old with underlying spinal stenosis, peripheral neuropathy, and previous spinal fusion. She developed a sacral decubitus several months ago. She underwent surgical debridement of a large sacral decubitus in 05/2018. There was polymicrobial growth including MRSA, Proteus, Klebsiella and group C streptococcus. She was treated with a prolonged course of antibiotics. She returned with worsening wound on 08/12/2018. She underwent further debridement on 08/13/2018 with growth of MRSA, group C streptococcus and yeast. Treated with vancomycin and ceftriaxone. Returns now with prolapse of her colostomy. She has had no pain in her abdomen. Stool output has been reasonable. There has been no blood. No fever, chills or sweats. She has a right upper extremity PICC, which is functioning well. She has an indwelling Godfrey catheter. REVIEW OF SYSTEMS: She has had no headache, cough or sputum production. A 10-point review was otherwise negative. ALLERGIES: None. MEDICATIONS: As noted on her MAR, including vancomycin and ceftriaxone. PAST MEDICAL HISTORY: Hypertension, degenerative arthritis, diabetes, atrial fibrillation, chronic back pain, anemia, peripheral neuropathy, sacral decubitus with osteomyelitis, cholecystectomy, bilateral total knee arthroplasties and cervical fusion. FAMILY HISTORY: Noncontributory. SOCIAL HISTORY: Nonsmoker, no significant alcohol intake. PHYSICAL EXAMINATION: VITAL SIGNS: She is afebrile and hemodynamically stable. GENERAL: She was alert and cooperative and pleasant, in no acute distress. EYES: Without scleral icterus. MOUTH: Without mucositis. NECK: Supple, with no thyromegaly or mass. [facility] [address] [place] [address] CONSULTATION Name: ZOYA BAZZI Room #: 356-P [facility] IN M.R.#: [id number] Admission: 09/07/18 ������������������ Attend Phys: Kahlil Travis MD Discharge: ������������������ Date of : 39 Report #: [id number] SKIN: Without rash. Her sacral wound with stage 4, good granulation tissue, extended several centimeters deep. Serous drainage. No purulence. No surrounding cellulitis. CHEST: Clear. HEART: Regular, without murmur. ABDOMEN: Mildly obese. Right abdomen colostomy site was a bit prolapsed, but was stable in appearance with healthy looking tissue. Abdomen is otherwise soft and nontender. EXTREMITIES: Strength in the upper extremities was normal. Lower extremity strength was -2, weakness, but was able to assist in moving in bed and rolling herself over. PSYCHIATRIC: Mood normal. LABORATORY STUDIES: Blood cultures are negative. Hemoglobin 7.9; WBC 3.2 with 10% neutrophils; 3% bands; 1 blast; 53% neutrophils; platelet count was 402,000. Sodium 142, potassium 3.5, bicarbonate 27, creatinine 0.6. Procalcitonin less than 0.05. Urinalysis was remarkable for moderate wbc's, moderate rbc's, few bacteria and few yeast. Chest x-ray clear. IMPRESSION: 1. A 77-year-old with lower extremity weakness, sacral osteomyelitis, now 3 weeks into her treatment course with vancomycin and ceftriaxone, now has evidence of neutropenia. There was one blast seen on the differential, which will need to be further evaluated. I would suspect that this to be related to vancomycin use, but will need to be followed. The patient was to transfer back to [facility], but will need to hold this up and get her blood work further evaluated. 2. Spinal stenosis. 3. Hypertension. 4. Degenerative arthritis. 5. Diabetes. 6. Atrial fibrillation. PLAN: We will discontinue antibiotics. Obtain inflammatory markers. Repeat CBC and have pathology review. Continue with wound care and offloading. I have discussed the case with attending. ��������������������������������������������� <ELECTRONICALLY SIGNED> ���������������������������������������� By: Stewart Goel MD ��������������������������������������������� 09/09/18 0942 1743 0904 Stewart Goel MD /nt
[2018-09-09 11:10] VITALS: BP 124/70
--- NOTE | 2018-09-09 12:13 | NUR ---
pt off unit to mri.
--- NOTE | 2018-09-09 14:14 | NUR ---
WOUND FOLLOW UP: PT. WAS SEEN TODAY BY DR. CANNON AND MYSELF. PT. WOUND TO HER SACRUM IS HEALTHY IN APPEARENCE AND FREE OF ANY SIGNS OR SYMPTOMS OF INFECTION AT THIS TIME. RECOMMENDATIONS: CONTINUE WITH CURRENT PLAN OF CARE. PT. AND STAFF NURSE WERE INSTRUCTED ON PLAN OF CARE.
--- NOTE | 2018-09-09 14:53 | NUR ---
COMPLETED BED BATH WITH MICHAEL PERLA AND PERFORMED GOOD SPIKE CARE. WILL CONTINUE TO ASSESS.
--- NOTE | 2018-09-09 15:56 | NUR ---
ON-GOING ASSESSMENT: CM REVIEWED CHART. PT IS SLOWLY PROGRESSING TOWARDS GOALS. PT IS NOT STABLE FOR DISCHARGE AT THIS TIME. DISCHARGE TO SNF WAS CANCELED LAST NIGHT AND CM SPOKE WITH LIASON FROM [facility]. CM WILL CONTINUE TO FOLLOW TO ASSIST NEEDED.
--- NOTE | 2018-09-09 16:11 | NUR ---
PLACED LOW AIR LOSS PUMP ON PT'S BED.
[2018-09-09 16:28] VITALS: BP 152/95
[2018-09-09 19:45] VITALS: BP 155/99
[2018-09-10 04:45] VITALS: BP 153/108
--- NOTE | 2018-09-10 05:11 | NUR ---
SLEPT MOST OF SHIFT. TURNED EVERY TWO HOURS FOR COMFORT AND SKIN CARE. SACRAL DRESSING LEAKING SEROUS FLUID. DRESSING CHANGED PER ORDERS. WORKING ON GOALS AND PLAN OF CARE FOR NOC. PROGRESSING SLOWLY TOWARDS DISCHARGE GOALS. AFEBRILE. DENIES PRESENT COMPLAINTS OF PAIN. ASSISTS TO TURN PRN. CONTINUE TO ASSES CLOESLY.
[2018-09-10 06:00] VITALS: BP 143/103
[2018-09-10 07:48] VITALS: BP 156/89
--- NOTE | 2018-09-10 10:43 | NUR ---
ON-GOING ASSESSMENT: GUERRERO SPOKE WITH YESENIA THE LIASON AT [facility] WHO REQUESTED CLINICAL UPDATE. GUERRERO FAXED CLINICAL TO HER. YESENIA STATING SHE WILL BE LEAVING AT NOON AND IF WE NEED TO GET [employer] OF THEM AFTER TO CALL AND ASK THE REGULATORY ASSISTANT FOR CANDIE AND SHE CAN HELP WITH ANY NEEDS.
[2018-09-10 11:09] LABS: HEMOGLOBIN 7.3 g/dL (11.1-15.9)
[2018-09-10 11:22] VITALS: BP 135/93
--- NOTE | 2018-09-10 12:57 | NUR ---
DISCHARGE PLANNING. ANTICIPATED DISCHARGE TODAY, PENDING INSURANCE AUTH. DISHCARGE ORDERS COMPLETED PER ATTENDING PHYSICIAN AND FAXED TO YESENIA/CANDIE. [facility] ADMISSIONS, VERIFIED ORDERS RECEIVED. CANDIE TO NOTIFY CM ONCE INSURANCE AUTH OBTAINED. CHART COPY COMPLETE PER CORPORATE LEARNING CONSULTANT. FOLLOWING.
[2018-09-10 13:38] LABS: HEMATOCRIT 26.9 % (37.0-47.0); HEMOGLOBIN 8.6 gm/dL (12.0-15.0); MCH 22.8 pg (26.0-34.0); MCHC 31.8 g/dL (28.0-37.0); MCV 71.7 fL (80.0-100.0); RBC 3.76 mil/uL (4.20-5.00); RDW 18.3 % (10.5-14.5); WBC 3.5 thou/uL (4.0-11.0)
[2018-09-10 13:41] LABS: PLATELET COUNT 462 thou/uL (150-400)
[2018-09-10 14:35] LABS: ABSOLUTE NEUTROPHILS 0.6 thou/uL (1.4-8.2); ANISOCYTOSIS 2+; HYPOCHROMASIA 1+; MICROCYTES 2+; PLATELET ESTIMATE INCREASED
--- NOTE | 2018-09-10 15:10 | NUR ---
Assumed care of pt at 0700. Medications given as ordered, tolerated well. Complaint of neuropathic pain to bilateral lower extremities and toes. Hydrocodone 1 tab given at 1155 with good relief. Colostomy intact, pink and protruding. Repositioned q2h. Pt resting comfortably in bed at this time, waiting to be discharged back to [facility]. No needs voiced at this time. Will continue to monitor until discharge.
--- NOTE | 2018-09-10 15:44 | NUR ---
PT DISCHARGED TO [facility] @ 5891..REPORT CALLED TO MAX WOUND VAC WITH PATIENT FROM [facility]..
[2018-09-10] MEDS ORDERED: OXYCODONE HCL5 MG PO (16:16)
--- NOTE | 2018-09-11 08:21 | HC ---
[facility] [place] [address] [place] [address] CONSULTATION Name: ZOYA BAZZI Room #: 356-P [facility] IN M.R.#: [id number] Admission: 09/07/18 ������������������ Attend Phys: Kahlil Travis MD Discharge: 09/10/18 ������������������ Date of : 39 Report #: [id number] THIS REPORT FOR: //name// CC: Miranda Travis DATE OF SERVICE: 09/08/2018 CHIEF COMPLAINT: Sacral pressure ulceration. HISTORY OF PRESENT ILLNESS: This is a 77-year-old female patient with whom I am familiar with a stage 4 sacral pressure ulcer. She has undergone previous debridement and has been undergoing ongoing care. It is getting gradually smaller. She is admitted for a prolapsed colostomy. The patient denies any pain, fever or chills at this time. PAST MEDICAL HISTORY: Positive for history of severe cervical spinal stenosis with fusion in 2018. She has a history of chronic back pain, bilateral knee replacement, anemia, atrial fibrillation and diabetes mellitus. SOCIAL HISTORY: The patient occasionally drinks alcohol on special occasions. Denies tobacco use. FAMILY HISTORY: Noncontributory. MEDICATIONS: Include Timoptic, Synthroid, Lyrica, NovoLog, Centrum Silver, Pro-Stat liquid, vancomycin. ALLERGIES: None. REVIEW OF SYSTEMS: CONSTITUTIONAL: Denies fever, chills, weight loss. NEUROLOGICAL: The patient denies focal weakness, numbness or tingling. EYES: The patient denies visual changes, redness or drainage. ENT: The patient denies earache, nasal drainage or sore throat. CARDIOVASCULAR: The patient denies chest pain, palpitations or diaphoresis. PULMONARY: The patient denies cough or shortness of breath. GASTROINTESTINAL: The patient denies nausea, vomiting, diarrhea or abdominal pain. ORTHOPEDIC: The patient denies pain or swelling in the extremities. Other systems in a 14-point review of systems are negative. PHYSICAL EXAMINATION: VITAL SIGNS: Include temperature 98.3, pulse 79, respiratory rate of 20, blood pressure 155/81. GENERAL: This is a chronically ill-appearing female patient who appears to be [facility] [address] [place] [address] CONSULTATION Name: ZOYA BAZZI Room #: 356-P [facility] IN M.R.#: [id number] Admission: 09/07/18 ������������������ Attend Phys: Kahlil Travis MD Discharge: 09/10/18 ������������������ Date of : 39 Report #: [id number] in minimal distress. HEENT: Head is normocephalic. Nose and throat clear. NECK: Supple. LUNGS: Clear. HEART: ____. ABDOMEN: Soft. Bowel sounds present. Demonstrates colostomy, slight prolapse noted, but seems to be functioning well. GENITOURINARY: Examination of the sacral region demonstrates stage 4 sacral pressure ulceration with healthy clean, granulating, does not appear to be infected. CLINICAL IMPRESSION: 1. Stage 4 sacral pressure ulceration, slowly improving. 2. Status post diverting colostomy with mild prolapse. 3. Diabetes mellitus. RECOMMENDATIONS: At this point in time, we will continue with local wound care. We will use quarter strength Dakin's moist gauze packing to the sacral ulceration, to be changed daily. We may resume a wound VAC at some point in time. Surgery will see her with regard to her colostomy issues. We will continue with aggressive nutritional support, low air loss mattress, q. 2 hour turning and repositioning. I appreciate being asked to see her in consultation. ��������������������������������������������� <ELECTRONICALLY SIGNED> ���������������������������������������� By: John Kuhn MD ��������������������������������������������� 09/11/18 0821 0848 2242 John Kuhn MD /nt
== END 2018-09-10 15:44 | DRG 393 ==
LOC: ER 09:26 → 3W 12:26 → ER 12:26 → EROBS 12:26 → 3W 09-10 15:44
PROVIDERS: Emergency Medicine; Nurse Practitioner; Specialist; ADMIT Internal Medicine
PROC: 02HV33Z Insertion of Infusion Device into Superior Vena Cava, Percutaneous Approach (ICD-10-PCS; principal; 2018-09-07)
DX: K94.09 Other complications of colostomy (principal); L89.154 Pressure ulcer of sacral region, stage 4; E46 Unspecified protein-calorie malnutrition; N39.0 Urinary tract infection, site not specified; M46.28 Osteomyelitis of vertebra, sacral and sacrococcygeal region; I10 Essential (primary) hypertension; M19.90 Unspecified osteoarthritis, unspecified site; G89.29 Other chronic pain; M54.9 Dorsalgia, unspecified; Z96.653 Presence of artificial knee joint, bilateral; Z90.49 Acquired absence of other specified parts of digestive tract; E03.9 Hypothyroidism, unspecified; K31.89 Other diseases of stomach and duodenum; E87.6 Hypokalemia; E11.42 Type 2 diabetes mellitus with diabetic polyneuropathy; H40.9 Unspecified glaucoma; E11.69 Type 2 diabetes mellitus with other specified complication; M48.00 Spinal stenosis, site unspecified; I48.2 Chronic atrial fibrillation; D70.9 Neutropenia, unspecified; D63.8 Anemia in other chronic diseases classified elsewhere; Z68.31 Body mass index [BMI] 31.0-31.9, adult; Z79.899 Other long term (current) drug therapy
CPT/HCPCS: 10879

== ENCOUNTER 2018-10-23 20:43 | Inpatient (IN) | payer OTHER ==
[~2018-10-23] VITALS: Ht 144.8 cm; Wt 72.0 kg
--- NOTE | ~2018-10-23 | EKG ---
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 : 1940 Requested By: Prashant Reveles Order Number: [id number] MD: Measurements Intervals [place] Rate: 108 P: -9 MT: 129 QRS: -29 QRSD: 82 T: -1 QT: 349 QTc: 468 Interpretive Statements Sinus tachycardia with irregular rate Abnormal R-wave progression, early transition Consider left ventricular hypertrophy Compared to ECG 05/29/2018 13:58:53 T-wave abnormality no longer present [email or web address] ��������������������������������������������� ���������������������������������������� By: ��������������������������������������������� 05 05 Epiphany Epiphany, /EPI
[~2018-10-23 20:43] MED LIST changes: +CENTRUM SILVER1 EAC4 PO; +LYRICA 75 MG CA75 MG PO; +OTHER PO; +OXYCODONE HCL5 MG PO; +PRO-STAT LIQUID30 M1 PO
[2018-10-23 20:44] VITALS: BP 204/116
[2018-10-23 21:12] LABS: HEMATOCRIT 34.7 % (37.0-47.0); HEMOGLOBIN 10.7 gm/dL (12.0-15.0); MCH 22.4 pg (26.0-34.0); MCHC 30.8 g/dL (28.0-37.0); MCV 72.6 fL (80.0-100.0); PLATELET COUNT 346 thou/uL (150-400); RBC 4.78 mil/uL (4.20-5.00); RDW 20.3 % (10.5-14.5); WBC 8.4 thou/uL (4.0-11.0)
[2018-10-23 21:20] LABS: CALCIUM 10.7 mg/dL (8.5-10.1); CREATININE 0.6 mg/dL (0.6-1.0)
[2018-10-23 21:25] LABS: POTASSIUM 3.8 mmol/L (3.5-5.1)
[2018-10-23 21:33] LABS: ABSOLUTE NEUTROPHILS 5.9 thou/uL (1.4-8.2); ANISOCYTOSIS 2+; HYPOCHROMASIA 2+; LARGE PLATELETS RARE; MICROCYTES 1+; MYELOCYTES 0 %; POLYCHROMASIA 1+
[2018-10-23 23:08] VITALS: BP 164/92
[2018-10-24 00:12] VITALS: BP 135/102
--- NOTE | 2018-10-24 03:59 | NUR ---
PT ARRIVED FROM ED. ADMISSION EDUCATION PROVIDED AND ADMISSION COMPLETE. CONTACTED WEED THINNER CONCERNING HIGH BP, ORDERS RECEIVED, SEE EMAR. ALL OTHER VSS. PT ALERT AND ORIENTED. IV DRESSING C/D/I, NO SIGNS OF INFITLRATION. GONZALEZ IN PLACE. COLOSTOMY IN PLACE. PICTURES OF WOUND IN CHART. CALL LIGHT WITHIN REACH. WILL CONTINUE POC UNTIL EOS.
[2018-10-24 05:04] LABS: CREATININE 0.7 mg/dL (0.6-1.0); POTASSIUM 3.5 mmol/L (3.5-5.1)
[2018-10-24 06:00] VITALS: BP 121/79
[2018-10-24 09:23] VITALS: BP 117/68
--- NOTE | 2018-10-24 10:13 | NUR ---
Nutrition: Pt admitted with weakness, sacral wound. Hx debridement/diverting colostomy, lumbar stenosis. Is wheelchair/bedbound. Weight hx shows gain which pt reports is due to good intake. Understands protein needs and drinks glucerna/sánchez routinely. Add Glucerna BID and Sánchez BID. BG 177, hx DM. On carb controlled diet. Low nutrition risk with interventions in place.
[2018-10-24 11:56] VITALS: BP 117/68
[2018-10-24 12:23] VITALS: BP 117/68
--- NOTE | 2018-10-24 16:54 | NUR ---
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 Pt will be dc home today before the end of shift.Will continue to monitor.
--- NOTE | 2018-10-25 08:15 | EKG ---
[address] [place] [address] ELECTROCARDIOGRAM REPORT Name: ZOYA BAZZI Room #: 431-P [facility] IN M.R.#: [id number] ������������������ Admission: 10/23/18 ������������������ Attend Phys: Juan Yoon MD Discharge: 10/24/18 ������������������ Date of : 38 Report #: [id number] ����������������������������������������������������������������� [id number] THIS RE[facility] FOR: //name// [facility] Test Date: 2018-10-23 Test Time: 21:06:03 Pat Name: ZOYA BAZZI Department: Room: [facility] Gender: F Wheel Truer: erica : 1940 Requested By: Prashant Reveles Order Number: [id number] MD: Olvin Rasheed Measurements Intervals [place] Rate: 108 P: -9 [place]: 129 QRS: -29 QRSD: 82 T: -1 QT: 349 QTc: 468 Interpretive Statements Sinus tachycardia with irregular rate Abnormal R-wave progression, early transition Consider left ventricular hypertrophy Compared to ECG 05/29/2018 13:58:53 T-wave abnormality no longer present Electronically Signed On 10-25-2018 8:15:39 CDT by Olvin Rasheed [email or web address] ��������������������������������������������� <ELECTRONICALLY SIGNED> ���������������������������������������� By: Olvin Rasheed MD ��������������������������������������������� 10/25/18 0815 05 05 Olvin Rasheed MD /[facility]
--- NOTE | 2018-10-26 09:02 | NUR ---
RECEIVED P.T. ORDERS FOR EVAL AND TREAT BUT Pt HAD BEEN D/C'D PRIOR TO P.T. BEING ABLE TO INITIATE EVAL. Pt D/C'D BACK TO HOME WITH HER DTR PER DOCUMENTATION.
== END 2018-10-24 17:37 | disposition home health service (06) | DRG 393 ==
LOC: ER 20:43 → EROBS 22:32 → 4E 23:10 → ER 23:10 → 4E 23:29
PROVIDERS: Nurse Practitioner; Nurse Practitioner Family; ADMIT Hospitalist
DX: K94.09 Other complications of colostomy (principal); L89.154 Pressure ulcer of sacral region, stage 4; I48.1 Persistent atrial fibrillation; E44.0 Moderate protein-calorie malnutrition; Y83.8 Other surgical procedures as the cause of abnormal reaction of the patient, or of later complication, without mention of misadventure at the time of the procedure; G89.29 Other chronic pain; M54.9 Dorsalgia, unspecified; E11.42 Type 2 diabetes mellitus with diabetic polyneuropathy; E03.9 Hypothyroidism, unspecified; I10 Essential (primary) hypertension; Z96.653 Presence of artificial knee joint, bilateral; M19.90 Unspecified osteoarthritis, unspecified site; Z60.2 Problems related to living alone; D64.9 Anemia, unspecified; Z90.49 Acquired absence of other specified parts of digestive tract; Z87.891 Personal history of nicotine dependence; Z68.34 Body mass index [BMI] 34.0-34.9, adult
CPT/HCPCS: 10084

== ENCOUNTER 2018-11-08 14:59 | Emergency (ER) | payer OTHER ==
[~2018-11-08] VITALS: Ht 144.8 cm; Wt 68.0 kg
[2018-11-08 14:59] VITALS: BP 146/87
== END 2018-11-08 15:41 | disposition home or self-care (01) ==
LOC: ER 14:59
DX: E11.40 Type 2 diabetes mellitus with diabetic neuropathy, unspecified (principal); M54.9 Dorsalgia, unspecified; G89.29 Other chronic pain; E03.9 Hypothyroidism, unspecified; I48.91 Unspecified atrial fibrillation; Z96.653 Presence of artificial knee joint, bilateral; M19.90 Unspecified osteoarthritis, unspecified site; I10 Essential (primary) hypertension

== ENCOUNTER 2018-11-16 19:32 | Emergency (ER) | payer OTHER ==
[~2018-11-16] VITALS: Ht 149.9 cm; Wt 68.0 kg
[2018-11-16 22:44] LABS: ABSOLUTE NEUTROPHILS 4.5 thou/uL (1.4-8.2); BASOPHILS 0.2 % (0.0-2.0); EOSINOPHILS 0.1 % (0.0-3.0); HEMATOCRIT 36.3 % (37.0-47.0); HEMOGLOBIN 11.3 gm/dL (12.0-15.0); LYMPHOCYTES 25.2 % (24.0-44.0); MCH 22.6 pg (26.0-34.0); MONOCYTES 11.2 % (1.0-8.0); PLATELET COUNT 305 thou/uL (150-400); POLYS 63.3 % (36.0-66.0); RBC 4.97 mil/uL (4.20-5.00); RDW 19.5 % (10.5-14.5); WBC 7.1 thou/uL (4.0-11.0)
[2018-11-16 22:52] LABS: CALCIUM 9.4 mg/dL (8.5-10.1); CREATININE 0.6 mg/dL (0.6-1.0); POTASSIUM 4.1 mmol/L (3.5-5.1)
[2018-11-17] MEDS ORDERED: LANTUS SOL100 UNIT/1 SUBQ (01:57)
[2018-11-17] MEDS ORDERED: LEVEMIR FL100 UNIT/2 SUBQ (01:57)
[2018-11-17] MEDS ORDERED: SYNTHROID100 MC1 PO (01:57)
[2018-11-17 05:41] VITALS: BP 161/96
== END 2018-11-17 05:43 | disposition home or self-care (01) ==
LOC: ER 19:32
PROVIDERS: Emergency Medicine
DX: E11.622 Type 2 diabetes mellitus with other skin ulcer (principal); L89.159 Pressure ulcer of sacral region, unspecified stage; E11.65 Type 2 diabetes mellitus with hyperglycemia; E11.42 Type 2 diabetes mellitus with diabetic polyneuropathy; G89.29 Other chronic pain; Z96.653 Presence of artificial knee joint, bilateral; E03.9 Hypothyroidism, unspecified; I48.91 Unspecified atrial fibrillation; I10 Essential (primary) hypertension; Z79.4 Long term (current) use of insulin; Z79.899 Other long term (current) drug therapy; Z93.3 Colostomy status

== ENCOUNTER 2019-11-10 10:54 | Emergency (ER) | payer OTHER ==
[~2019-11-10] VITALS: Ht 144.8 cm; Wt 68.0 kg
[~2019-11-10 10:54] MED LIST changes: +LANTUS SOL100 UNIT/1 SUBQ; +LEVEMIR FL100 UNIT/2 SUBQ
[2019-11-10 10:56] VITALS: BP 177/89
[2019-11-10 11:17] LABS: URINE BILIRUBIN NEGATIVE (Negative); URINE BLOOD 2+ (Negative); URINE COLOR YELLOW; URINE GLUCOSE-RANDOM* 2+ (Negative); URINE KETONES NEGATIVE (Negative); URINE PROTEIN (DIPSTICK) 2+ (Negative); URINE SPECIFIC GRAVITY <= 1.005 (1.005-1.035); URINE UROBILINOGEN 0.2 E.U./dl (0.2-1.0)
[2019-11-10 11:25] LABS: URINE LEUKOCYTES-REFLEX 3+ (Negative); URINE NITRITE-REFLEX POSITIVE (Negative)
[2019-11-10 11:26] LABS: URINE CLARITY HAZY
[2019-11-10 11:37] LABS: BACTERIA-REFLEX >30 Many /HPF (None Seen); CASTS None Seen /LPF (None Seen); CRYSTALS None Seen /LPF (None Seen); SQUAMOUS None Seen /LPF (0-3); URINE RBC 3-10 Few /HPF (0-2); URINE WBC-REFLEX >25 Many /HPF (0-5)
[2019-11-10 11:48] LABS: CALCIUM 9.3 mg/dL (8.5-10.1); CREATININE 0.7 mg/dL (0.6-1.0); POTASSIUM 3.7 mmol/L (3.5-5.1)
[2019-11-10 11:53] LABS: ALBUMIN 2.5 g/dL (3.4-5.0); TOTAL BILIRUBIN 0.9 mg/dL (0.2-1.0); TOTAL PROTEIN 7.7 g/dL (6.4-8.2)
[2019-11-10 11:59] LABS: HEMATOCRIT 39.1 % (37.0-47.0); HEMOGLOBIN 12.8 gm/dL (12.0-15.0); MCH 27.7 pg (26.0-34.0); MCHC 32.7 g/dL (28.0-37.0); MCV 84.5 fL (80.0-100.0); PLATELET COUNT 305 thou/uL (150-400); RBC 4.63 mil/uL (4.20-5.00); WBC 7.2 thou/uL (4.0-11.0)
[2019-11-10 12:24] LABS: ABSOLUTE NEUTROPHILS 4.6 thou/uL (1.4-8.2); PLATELET ESTIMATE NORMAL
--- NOTE | 2019-11-10 12:36 | NUR ---
NICHE ([facility]) [phone]
[2019-11-10 13:35] VITALS: BP 157/110
[2019-11-10 19:36] VITALS: BP 171/117
--- NOTE | 2019-11-11 07:31 | EKG ---
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: : 1940 Requested By: Hannah Caballero Order Number: [id number] MD: Tray Garcia Measurements Intervals [place] Rate: 107 P: 112 [place]: 120 QRS: 96 QRSD: 86 T: 69 QT: 331 QTc: 442 Interpretive Statements Sinus tachycardia with atrial premature complexes Right axis deviation Compared to ECG 10/23/2018 21:06:03 No significant change was found Electronically Signed On 11-11-2019 7:30:37 CDT by Tray Garcia [email or web address] <ELECTRONICALLY SIGNED> By: Tray Garcia MD, FAC 11/11/19 0730 1057 1057 Tray Garcia MD, [facility] /EPI
== END 2019-11-10 19:38 | disposition short-term general hospital (02) ==
LOC: ER 10:54 → EROBS 12:58 → ER 12:58
PROVIDERS: Emergency Medicine
DX: N39.0 Urinary tract infection, site not specified (principal); R41.82 Altered mental status, unspecified; G89.29 Other chronic pain; E11.9 Type 2 diabetes mellitus without complications; E03.9 Hypothyroidism, unspecified; I48.91 Unspecified atrial fibrillation; I10 Essential (primary) hypertension; Z79.899 Other long term (current) drug therapy; Z79.4 Long term (current) use of insulin; Z90.49 Acquired absence of other specified parts of digestive tract; Z96.653 Presence of artificial knee joint, bilateral

== ENCOUNTER 2020-06-30 22:27 | Emergency (ER) | payer OTHER ==
[~2020-06-30] VITALS: Ht 144.8 cm; Wt 68.0 kg
[2020-07-01] MEDS ORDERED: TOVIAZ8 MG PO (01:12)
[2020-07-01] MEDS ORDERED: ATORVASTATIN CA20 MG PO (01:13)
[2020-07-01] MEDS ORDERED: XARELTO10 M1 PO (01:13)
[2020-07-01] MEDS ORDERED: AMLODIPINE BESY10 MG PO (01:13)
[2020-07-01] MEDS ORDERED: LANTUSSOLASTAR SUBQ (01:14)
[2020-07-01] MEDS ORDERED: ROXICODONE5 MG PO (01:14)
[2020-07-01] MEDS ORDERED: PREGABALIN100 MG PO (01:15)
[2020-07-01 02:25] VITALS: BP 168/72
== END 2020-07-01 02:26 | disposition home or self-care (01) ==
LOC: ER 22:27
DX: K94.03 Colostomy malfunction (principal); I10 Essential (primary) hypertension; I48.91 Unspecified atrial fibrillation; E11.9 Type 2 diabetes mellitus without complications; E03.9 Hypothyroidism, unspecified; G89.29 Other chronic pain; M54.9 Dorsalgia, unspecified; Z86.2 Personal history of diseases of the blood and blood-forming organs and certain disorders involving the immune mechanism; Z79.899 Other long term (current) drug therapy

== ENCOUNTER 2020-08-26 09:58 | Emergency (ER) | payer OTHER ==
[~2020-08-26] VITALS: Ht 144.8 cm; Wt 81.7 kg
[~2020-08-26 09:58] MED LIST changes: +AMLODIPINE BESY10 MG PO; +ATORVASTATIN CA20 MG PO; +LANTUSSOLASTAR SUBQ; +PREGABALIN100 MG PO; +ROXICODONE5 MG PO; +TOVIAZ8 MG PO; +XARELTO10 M1 PO
[2020-08-26 10:53] LABS: URINE BILIRUBIN NEGATIVE (Negative); URINE BLOOD 3+ (Negative); URINE COLOR YELLOW; URINE GLUCOSE-RANDOM* NEGATIVE (Negative); URINE KETONES TRACE (Negative); URINE PROTEIN (DIPSTICK) 2+ (Negative); URINE SPECIFIC GRAVITY 1.025 (1.005-1.035); URINE UROBILINOGEN 0.2 E.U./dl (0.2-1.0)
[2020-08-26 10:54] LABS: URINE CLARITY HAZY; URINE LEUKOCYTES-REFLEX 2+ (Negative); URINE NITRITE-REFLEX POSITIVE (Negative)
[2020-08-26 11:04] LABS: BACTERIA-REFLEX >30 Many /HPF (None Seen); CASTS None Seen /LPF (None Seen); SQUAMOUS 4-10 Moderate /LPF (0-3); URINE RBC >20 Many /HPF (0-2); URINE WBC-REFLEX >25 Many /HPF (0-5)
[2020-08-26 11:05] LABS: MUCUS 0-3 Light strn/LPF (None Seen)
[2020-08-26 11:06] LABS: WBC CLUMPS Few (None Seen)
[2020-08-26 11:23] LABS: URIC ACID CRYSTALS 0-3 Few /LPF (None Seen)
[2020-08-26] MEDS ORDERED: HUMALOG100 UNIT/1 SUBQ (11:34)
[2020-08-26] MEDS ORDERED: TOUJEO MAX300 UNIT/1 SUBQ (11:35)
[2020-08-26 11:47] LABS: ABSOLUTE NEUTROPHILS 10.2 thou/uL (1.4-8.2); BASOPHILS 0.6 % (0.0-2.0); EOSINOPHILS 0.5 % (0.0-3.0); HEMATOCRIT 24.1 % (37.0-47.0); HEMOGLOBIN 7.4 gm/dL (12.0-15.0); MCH 21.6 pg (26.0-34.0); MCHC 30.8 g/dL (28.0-37.0); MONOCYTES 8.3 % (1.0-8.0); PLATELET COUNT 409 thou/uL (150-400); POLYS 79.6 % (36.0-66.0); RBC 3.44 mil/uL (4.20-5.00); RDW 17.8 % (10.5-14.5); WBC 12.8 thou/uL (4.0-11.0)
[2020-08-26 11:57] LABS: ANION GAP 10 mmol/L (7-16); BUN 13 mg/dL (7-18); CALCIUM 9.6 mg/dL (8.5-10.1); CHLORIDE 105 mmol/L (98-107); CO2 24 mmol/L (21-32); CREATININE 0.6 mg/dL (0.6-1.0); GLUCOSE 155 mg/dL (74-106); POTASSIUM 3.9 mmol/L (3.5-5.1); SODIUM 139 mmol/L (136-145)
[2020-08-26 12:08] LABS: ALBUMIN 2.5 g/dL (3.4-5.0); DIRECT BILIRUBIN < 0.1 mg/dL (<0.1-0.2); MAGNESIUM 1.5 mg/dL (1.8-2.4); PHOSPHORUS 3.2 mg/dL (2.5-4.9); SGOT 15 U/L (15-37); SGPT 12 U/L (30-65); TOTAL BILIRUBIN 0.3 mg/dL (0.2-1.0); TROPONIN-I <0.06 ng/mL (<0.06)
[2020-08-26 13:00] LABS: ANISOCYTOSIS SLIGHT; POLYCHROMASIA SLIGHT
[2020-08-26 13:01] LABS: SCHISTOCYTES OCCASIONAL; TARGET CELLS FEW; TEARDROPS FEW
[2020-08-26] MEDS ORDERED: MACROBID 100 M100 M1 PO (15:51)
[2020-08-26] MEDS ORDERED: TYLENOL325 M1 PO (15:51)
[2020-08-26] MEDS ORDERED: ERYTHROMYCIN E3.5 G2 OPHTHALMIC (15:52)
[2020-08-26 17:28] VITALS: BP 122/80
--- NOTE | 2020-08-27 11:28 | EKG ---
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 : 1940 Requested By: Dav Arguelles Order Number: [id number] MD: Larry Benitez Measurements Intervals [place] Rate: 98 P: -18 [place]: 150 QRS: -26 QRSD: 77 T: -4 QT: 321 QTc: 410 Interpretive Statements Sinus tachycardia Atrial premature complex Borderline left axis deviation Borderline T wave abnormalities Compared to ECG 11/10/2019 10:57:00 T-wave abnormality now present Right-axis deviation no longer present Electronically Signed On 08-27-2020 11:28:04 CDT by Larry Benitez [email or web address] <ELECTRONICALLY SIGNED> By: Larry Benitez MD, [facility] 08/27/20 1128 1025 1025 Larry Benitez MD, FAC /EPI
== END 2020-08-26 17:31 | disposition home or self-care (01) ==
LOC: ER 09:58
PROVIDERS: Emergency Medicine
DX: R44.0 Auditory hallucinations (principal); N39.0 Urinary tract infection, site not specified; E83.42 Hypomagnesemia; I10 Essential (primary) hypertension; E03.9 Hypothyroidism, unspecified; I48.91 Unspecified atrial fibrillation; E11.9 Type 2 diabetes mellitus without complications; Z86.2 Personal history of diseases of the blood and blood-forming organs and certain disorders involving the immune mechanism; Z79.899 Other long term (current) drug therapy; Z79.4 Long term (current) use of insulin

== ENCOUNTER 2020-09-06 12:26 | Inpatient (IN) | payer OTHER ==
[~2020-09-06] VITALS: Ht 144.8 cm; Wt 70.6 kg
--- NOTE | ~2020-09-06 | HC ---
[facility] [place] [address] CONSULTATION Name: ZOYA BAZZI Room #: 444-P [facility] IN M.R.#: [id number] Admission: 09/06/20 Attend Phys: Hoang Rollins MD Discharge: 09/13/20 Date of : 38 Report #: [id number] THIS REPORT FOR: cc: Daljit Messina,John Lee MD ~ DATE OF SERVICE: 09/07/2020 CHIEF COMPLAINT: Pressure ulcerations. HISTORY OF PRESENT ILLNESS: This is an 79-year-old female patient with whom I am familiar from the distant past, who was admitted to the hospital for evaluation of left toe wound. She has had a previous stage 4 sacral pressure ulceration and ultimately underwent flap surgery at [facility]. The patient is in good spirits and was also noted to have a pressure ulceration on her left ischial region. I have been asked to see her in this regard. She denies significant pain at this time. PAST MEDICAL HISTORY: Positive for previous stage 4 sacral pressure ulceration, status post flap closure, more recent development of left ischial pressure ulceration as well as toe ulceration. She has a history of type 2 diabetes mellitus, recurrent urinary tract infections. She is status post colostomy, has a history of hypertension, paroxysmal atrial fibrillation, hypothyroidism. MEDICATIONS: Include Toviaz, atorvastatin, Xarelto, amlodipine, insulin, oxycodone, pregabalin, Humalog, Toujeo, Synthroid, Centrum Silver. ALLERGIES: No known drug allergies. SOCIAL HISTORY: Negative for current alcohol or tobacco use. FAMILY HISTORY: Noncontributory. REVIEW OF SYSTEMS: CONSTITUTIONAL: The patient denies fever, chills or weight loss. NEUROLOGICAL: The patient does have some peripheral neuropathy. EYES: The patient denies visual changes, redness, or drainage. ENT: The patient denies earache, nasal drainage, sore throat. CARDIOVASCULAR: The patient denies chest pain, palpitations or diaphoresis. PULMONARY: The patient denies cough or shortness of breath. GASTROINTESTINAL: The patient denies nausea, abdominal pain. ORTHOPEDIC: The patient has ulceration on the left ischial region as well as to her left great toe. Other systems in a 14-point review of systems are negative. [address] [address] CONSULTATION Name: ROSE MARYCHATTANOOGA Room #: 444-P [facility] IN ..#: [id number] Admission: 09/06/20 Attend Phys: Hoang Rollins MD Discharge: 09/13/20 Date of : 38 Report #: [id number] PHYSICAL EXAMINATION: VITAL SIGNS: Include temperature 36.9, pulse 88, respiratory rate 16, blood pressure 147/72. GENERAL: This is a chronically ill-appearing female patient who appears to be in minimal distress. HEENT: Head normocephalic. Nose and throat are clear. NECK: Supple. LUNGS: Clear. ABDOMEN: Soft. Colostomy present. EXTREMITIES: Examination of the sacral-gluteal region demonstrates a small scar in the sacral region. No evidence of anything open. There is left ischial pressure ulceration that appears to be stage 3. It is relatively clean and granulating and relatively shallow. No deep structure exposed and it does not appear to be overtly infected. Lower extremities demonstrate ulceration to the tip of the left great toe, does not appear to be infected at this time. NEUROLOGIC: The patient is alert and oriented, moving all 4 extremities. LABORATORY STUDIES: Include sodium 138, potassium 3.6, chloride 104, CO2 of 26, BUN 10, creatinine 0.7, glucose 149, calcium is 9.3. CRP is 33.9. White blood cell count 10.2 with a hemoglobin of 7.5. CLINICAL IMPRESSION: 1. Stage 3 left ischial pressure ulceration. 2. Diabetic foot ulceration, left great toe. 3. Previous stage 4 sacral pressure ulceration, status post flap closure, resolved. 4. Type 2 diabetes mellitus with peripheral neuropathy. 5. Moderate protein-calorie malnutrition. RECOMMENDATIONS: At this point in time, we will recommend barrier cream to the ischial pressure ulceration, low air loss mattress and q. 2 hour turning and positioning. We will recommend Betadine paints to the left great toe to maintain dry stable eschar. Continued medical management of her underlying other medical issues and aggressive nutritional support. I appreciate being asked to see her in consultation. By: 0823 0923 John Kuhn MD /nt
[~2020-09-06 12:26] MED LIST changes: +ERYTHROMYCIN E3.5 G2 OPHTHALMIC; +HUMALOG100 UNIT/1 SUBQ; +MACROBID 100 M100 M1 PO; +TOUJEO MAX300 UNIT/1 SUBQ; +TYLENOL325 M1 PO
[2020-09-06 12:27] VITALS: BP 155/81
--- NOTE | 2020-09-06 13:32 | NUR ---
IV TEAM UNABLE TO OBTAIN BLOOD FROM IV OR PERIPHERAL STICK. LAB NOTIFIED TO DO BLOOD DRAW WHO STATED IT WOULD BE APPROX 2O MIN BEFORE THEY CAN COME
[2020-09-06 14:12] LABS: URINE BILIRUBIN NEGATIVE (Negative); URINE BLOOD 3+ (Negative); URINE CLARITY CLOUDY; URINE COLOR YELLOW; URINE GLUCOSE-RANDOM* NEGATIVE (Negative); URINE KETONES NEGATIVE (Negative); URINE NITRITE-REFLEX NEGATIVE (Negative); URINE PROTEIN (DIPSTICK) 2+ (Negative); URINE UROBILINOGEN 0.2 E.U./dl (0.2-1.0)
[2020-09-06 14:14] LABS: URINE LEUKOCYTES-REFLEX 3+ (Negative)
[2020-09-06 14:29] LABS: BACTERIA-REFLEX >30 Many /HPF (None Seen); CRYSTALS None Seen /LPF (None Seen); HYALINE CASTS 0-3 Few /LPF (None Seen); SQUAMOUS 0-3 Few /LPF (0-3); URINE RBC 0-2 Rare /HPF (0-2); URINE WBC-REFLEX 6-15 Few /HPF (0-5)
[2020-09-06 14:30] LABS: MUCUS 0-3 Light strn/LPF (None Seen)
[2020-09-06 14:45] LABS: HEMATOCRIT 27.8 % (37.0-47.0); HEMOGLOBIN 8.3 gm/dL (12.0-15.0); MCH 20.6 pg (26.0-34.0); MCHC 29.9 g/dL (28.0-37.0); MCV 68.8 fL (80.0-100.0); PLATELET COUNT 513 thou/uL (150-400); RBC 4.05 mil/uL (4.20-5.00); RDW 18.8 % (10.5-14.5); WBC 10.8 thou/uL (4.0-11.0)
[2020-09-06 14:46] LABS: CALCIUM 10.1 mg/dL (8.5-10.1); CREATININE 0.7 mg/dL (0.6-1.0); POTASSIUM 4.3 mmol/L (3.5-5.1)
[2020-09-06 14:52] LABS: ALBUMIN 2.7 g/dL (3.4-5.0); TOTAL BILIRUBIN 0.3 mg/dL (0.2-1.0); TOTAL PROTEIN 8.6 g/dL (6.4-8.2)
--- NOTE | 2020-09-06 14:55 | NUR ---
DAUGHTER ARMAND BAZZI [phone] CALLED WITH REQUEST FOR NEWS VIDEO EDITOR TO REACH OUT TO HER SHE FEELS THAT PT SHOULD NO LONGER BE LIVING AT HOME. CONSULT MADE.
[2020-09-06 15:20] LABS: ABSOLUTE NEUTROPHILS 7.7 thou/uL (1.4-8.2)
[2020-09-06 15:21] LABS: HYPOCHROMASIA 1+; LARGE PLATELETS OCCASIONAL; POLYCHROMASIA 1+; TARGET CELLS 1+
[2020-09-06 15:22] LABS: OVALOCYTES FEW
[2020-09-06 18:40] VITALS: BP 148/76
[2020-09-06 19:31] VITALS: BP 145/69
[2020-09-07 05:14] LABS: HEMATOCRIT 24.8 % (37.0-47.0); HEMOGLOBIN 7.5 gm/dL (12.0-15.0); MCH 20.6 pg (26.0-34.0); MCHC 30.4 g/dL (28.0-37.0); MCV 67.7 fL (80.0-100.0); PLATELET COUNT 482 thou/uL (150-400); RBC 3.66 mil/uL (4.20-5.00); RDW 18.1 % (10.5-14.5); WBC 10.2 thou/uL (4.0-11.0)
[2020-09-07 05:30] LABS: CALCIUM 9.3 mg/dL (8.5-10.1); CREATININE 0.7 mg/dL (0.6-1.0); MAGNESIUM 1.2 mg/dL (1.8-2.4); POTASSIUM 3.6 mmol/L (3.5-5.1)
--- NOTE | 2020-09-07 07:12 | NUR ---
PT ARRIVED TO [address] [place] [address] AT APPROX 1900. THIS RN RECIEVED REPORT SHORTLY AFTER AND ASSUMED CARE OF THE PT. AT THIS TIME PT WAS AXOX4 ON ROOM AIR. VITAL SIGNS WERE TAKEN AND PT WAS ORIENTED TO NEW ENVIORNMENT. RN TO MONITOR AND FOLLOW PLAN OF CARE.
[2020-09-07 08:08] VITALS: BP 147/72
--- NOTE | 2020-09-07 09:54 | NUR ---
OSTOMY CARE NOTE; PT AWAKE, ALERT, COOPERATIVE, PLEASANT, STATES SHE MANAGES HER OSTOMY ON OWN AT HOME BUT DID NOT BRING ANY SUPPLIES TO HOSP, POUCH INTACT, STOMA SLIGHTLY PROLAPSED, EDEMATOUS, NO STOOL, POUCH CHANGED LAST SONYA, SUPPLIES PLACED AT BS,WILL FOLLOW RECOMMENDATIONS; BARBARA POUCH CUT TO FIT, CHANGE Q 3-5DAYS AND PRN, EMPTY PRN REQUISITION APPROVER AWARE
[2020-09-07 11:03] LABS: ABSOLUTE NEUTROPHILS 7.4 thou/uL (1.4-8.2); ANISOCYTOSIS 2+
[2020-09-07 11:04] LABS: HYPOCHROMASIA 3+; MICROCYTES 2+
[2020-09-07] MEDS ORDERED: METFORMIN HCL500 MG PO (13:03)
[2020-09-07] MEDS ORDERED: HUMALOG100 UNIT/1 SUBQ (13:03)
--- NOTE | 2020-09-07 14:38 | NUR ---
PT ADMITTED RELATED TO DECUBITUS ULCER AND UTI. CM REVIEWED CHART AND SPOKE WITH CARE TEAM. CM MET WITH PT AT BEDSIDE THIS DAY. PT INDICATED THAT SHE HAD BEEN LIVING ALONE IN HER SENIOR APARTMENT AT [facility] IN [place]. PT INDICATED THAT SHE HAD USED A MANUAL WC, ALEJANDRA LIFT, HOSPITAL BED FOR HOME USE. PT INDICATED SHE HAD TWO CAREGIVERS IN THE HOME ONE THROUGH [facility] AND THE OTHER THROUGH A FAMILY FRIEND THAT THEY PAY PRIVATELY. PT INDICATED THAT THE GAREGIVERS USE A ALEJANDRA LIFT TO ASSIST HER WITH HER TRANSFERS FROM BED TO WC AND BACK. PT INDICATED THAT SHE AND HER FAMILY DON'T THINK IT SAFE FOR HER TO RETURN TO HER APARTMENT SHE CAN'T BE ALONE OVERNIGHT ANYMORE. PT INDICATED SHE HAD DROPPED HER CELL PHONE ONCE AND DTR INDICATED THAT SHE LAYS IN URINE FOR LONG PERIODS OF TIME WHEN HER CATHETER MALFUNCTIONS. PT STATED THAT SHE HAD BEEN WORKING WITH A CM WITH HER INSURNACE TO COMPLETE A MEDICIAD APPLICAITON BUT THAT SHE WAS WAITING FOR DOCUMENTATION FROM [facility] AND SHE GOT IT. SHE WAS RECEPTIVE TO MEETING WITH [facility] FOR POSSIBLE ASSISTANCE WITH APPLICATION. PT STATED THAT SHE HOPES TO GO TO LTC IN [facility] NEAR HER DTR [facility] EVENTUALLY. PT IS AGREEABLE ITH POSSILE SHORT TERM SKILLED STAY AT [facility] UNTIL MEDICIAD IS ACTIVE. REFERRAL TO BE SENT. CM FOLLOWING REGARDING DC PLANNING. PT IS ON IV VANC WC CONSULTED.
[2020-09-07 16:30] VITALS: BP 149/63
--- NOTE | 2020-09-07 16:46 | NUR ---
PT A&OX4, VSS, DENIES PAIN. PATIENT HAS SUPRAPUBIC CATHETER AND PATIENT IS URIANTED FROM URETHRA WELL. PATIENT HAS COLOSTOMY PATENT. PATIENT IS A BLOOD SUGAR CHECK WITH SLIDING SCALE. PATIENT ON ROOM AIR AND NO SIGNS OF DISTRESS. WOUND CARES COMPLETED PER ORDERS. WILL CONTINUE TO MONITOR.
[2020-09-07 19:39] VITALS: BP 148/87
--- NOTE | 2020-09-08 04:12 | NUR ---
PT CARE ASSUMED WITH PT IN BED WATCHING TV.PT IS A/O X4.PT IS ON BEDREST.PT C/O PAIN AND MANAGED WITH OXYCODONE.PT HAS A SUPRABUPIC CATHETER AND A COLOSTOMY BAG.PT ALSO HAS AN EXTERNAL CATHETER IN PLACE.WOUND ON LT GREAT TOE OPEN TO AIR AND ON SACRAL WITH ZGAURD AFTER CLEANSING WITH NS OR CLEANSER.WILL CONTINUE TO MONITOR
[2020-09-08 06:16] LABS: ABSOLUTE RETIC COUNT 0.0686 10^6/uL; OBSERVED RETIC COUNT 1.89 % (0.6-2.6)
--- NOTE | 2020-09-08 08:04 | HC ---
[facility] [place] [address] [place] [address] CONSULTATION Name: ZOYA BAZZI Room #: 464-P ADM IN M.R.#: [id number] Admission: 09/06/20 Attend Phys: Hoang Rollins MD Discharge: Date of : 39 Report #: [id number] THIS REPORT FOR: cc: Daljit Messina,Shawn Avina MD ~ DATE OF SERVICE: 09/07/2020 INFECTIOUS DISEASE CONSULTATION ATTENDING PHYSICIAN: Dr. Rollins. REASON FOR EVALUATION: Complicated urinary tract infection. New left great toe distal plantar ulcer complicated by inflammatory eruption, felt to be cellulitic. HISTORY OF PRESENT ILLNESS: Chart reviewed, patient examined. This is an 79-year-old woman with known diabetes mellitus complicated by severe peripheral neuropathy, has some vasculopathy as well. Longstanding sacral decubitus ulcer is in the setting of severe lumbar spinal stenosis. Does have a diverting colostomy as well as a suprapubic catheter. She was noted to have new onset wound involving the distal plantar aspect of her left great toe. She notes she basically gets around in a wheelchair. She does not apparently drag her feet. Secondly, was noted to have some leakage around her suprapubic catheter, which was changed the day or 2 prior to her admission. She noted it was soiling her bed. In the ER evaluation, no bony changes noted on plain x-ray. Urinalysis did show 6-15 white cells. Urine culture was found to have greater than 10 to __ gram-negative rods identified as Klebsiella pneumoniae, awaiting susceptibilities. Sed rate was elevated to 94. Lactic acid is 1.9. She was found to be severely anemic as well. She was empirically started on combination therapy with vancomycin and Zosyn. ALLERGIES: None known. MEDICATIONS: Currently include pantoprazole, pregabalin, docusate sodium, Zosyn, sliding scale insulin, oxycodone, acetaminophen, ondansetron as needed, vancomycin, and p.r.n. analgesics. PAST MEDICAL HISTORY: Chronic back pain, severe spinal stenosis, decubitus ulcer, post-diverting colostomy, also has suprapubic catheter with recurrent UTIs, degenerative arthritis, diabetes mellitus, hypothyroidism, atrial fibrillation, chronic anemia, and hypertension. SOCIAL HISTORY: Nonsmoker, occasional ethanol, no illicit drug use. [address] [address] CONSULTATION Name: ZOYA BAZZI Room #: 464-P [facility] IN M.R.#: [id number] Admission: 09/06/20 Attend Phys: Hoang Rollins MD Discharge: Date of : 39 Report #: [id number] FAMILY HISTORY: Noncontributory. REVIEW OF SYSTEMS: Otherwise, unremarkable. PHYSICAL EXAMINATION: GENERAL: Pleasant, alert, cooperative, in nffp-ca-lgvucfug distress. She is generally lucid, undernourished. VITAL SIGNS: Temperature 98.5, pulse 88, respirations 16, and blood pressure 147/72. SKIN: Warm, dry, no rashes. HEENT: Normocephalic. Extraocular muscles are intact. NECK: Supple. LUNGS: Diminished, otherwise clear breath sounds. HEART: Irregular. I do not appreciate a murmur. ABDOMEN: Mildly distended, otherwise soft, nontender, has a colostomy in place. Suprapubic catheter, there is no evidence of cellulitic eruption anterior abdominal wall. EXTREMITIES: Left great toe, there is a superficial ulcer with some moderate degree of debris. It is not overtly purulent. RECTAL: Deferred. LABORATORY DATA: Urine culture identified as Klebsiella pneumoniae. CBC: White count 10.2, H and H 7.5 and 24.8, and platelets of 482. Blood cultures negative thus far. Electrolytes: Sodium 138, potassium 3.6, chloride 104, bicarbonate 26, anion gap of 8, BUN and creatinine 10 and 0.9, estimated GFR of 98, and sed rate of 94. CRP of 33.9. Lactic acid is 1.9. Liver functions, alkaline phosphatase of 121. Transaminases in the normal range. Albumin is 2.7 and total protein of 8.6. Urinalysis is greater than 6-15 white cells, greater than 30 bacteria. Plain film of the foot showed diffuse soft tissue swelling, no evidence of foreign body. No periosteal reaction or bony destruction. ASSESSMENT AND PLAN: 1. Complicated urinary tract infection. The patient is with indwelling suprapubic catheter. This appears to be recurrent issue. It is notable change that may have been an inciting factor recently, also new onset ulceration involving the distal plantar aspect of the left great toe entirely clear based on some shearing injury. At this point, there is some moderate degree of inflammation. 2. Diabetes mellitus complicated by vasculopathy, peripheral neuropathy. 3. Decubitus ulcer. We will continue current therapy with empiric treatment. We will await susceptibilities of the Klebsiella, adjust therapy as needed. Noted wound care is following. We will defer to any approach may at some point require debridement. Continue to monitor expectantly. We will add incentive spirometry, certainly at risk for additional complications. [address] [address] CONSULTATION Name: ZOYA BAZZI Room #: 464-P ADM IN M.R.#: [id number] Admission: 09/06/20 Attend Phys: Hoang Rollins MD Discharge: Date of : 39 Report #: [id number] Thank you. We will follow. <ELECTRONICALLY SIGNED> By: Shawn Amador MD 09/08/20 0804 1417 195 Shawn Amador MD /nt
[2020-09-08 08:48] VITALS: BP 159/91
[2020-09-08 08:50] LABS: FERRITIN 11 ng/mL (8-252)
[2020-09-08 12:17] LABS: % SATURATION 8 % (20-39); IRON 23 ug/dL (50-170); TIBC 284 ug/dL (250-450)
[2020-09-08 15:13] VITALS: BP 152/76
--- NOTE | 2020-09-08 18:04 | NUR ---
REFERRAL FAXED TO [facility] RECEIVED CONFIRMATION AND LEFT MSG WITH ADM. WILL F/U WITH FACILITY ON FRIDAY.
--- NOTE | 2020-09-08 18:58 | NUR ---
PT A&OX4, VSS, DENIES PAIN. PATIENT HAS SUPRAPUBIC CATH AND URINATES VIA URETHRA. COLOSTOMY CARES DONE. WOUND CARES COMPLETED ORDERED. PATIENT REPOSITIONED OFTEN. PT IN TO WORK WITH PATIENT. NO SIGNS OF DISTRESS. WILL CONTINUE TO MONITOR.
[2020-09-08 19:51] VITALS: BP 161/78
[2020-09-09 00:15] VITALS: BP 161/78
--- NOTE | 2020-09-09 02:52 | NUR ---
PT CARE ASSUMED WITH PT IN BED WATCHING TV AT 1900.PT IS A/O X4.PT IS ON BEDREST.PT C/O PAIN AND PAIN MANAGED WITH OXYCODONE PRN AND TYLENOL.PT HAS A SUPRAPUBIC CATHETER AND ALSO VOID THROUGH URETHRA.PT CALLS FOR REPOSITION AND PT HAS AN AIR LOSS MATTRESS.IV ACCESS ON LT UA WITH NS AT 75CC/HR.PT IS ACCUCHCEK ACHS WITH SSI.WILL CONTINUE TO MONITOR PER POC
[2020-09-09 07:34] VITALS: BP 156/74
[2020-09-09 16:08] VITALS: BP 143/70
--- NOTE | 2020-09-09 19:58 | NUR ---
Received awake on bed. Due medications given as prescribed, able to swallow meds w/o difficulty. On room air. Vital signs stable. On MS, not on telemetry; no complains and signs of chest pain, crushing sensation and heaviness. Assisted in ADLs. On carb controlled diet- tolerating well; no nausea, no vomiting and no abdominal pain noted. On blood sugar monitoring, taken and recorded accordingly; with sliding scale insulin ordered- given as prescribed. With suprapubic cath in place- output measured and recorded accordingly; with purewick in place- still with output. With healing wound at buttocks- Z guard applied; turned on her sides. Ordered prafo boots- none in bedside; applied bilaterally. Complained of pain, due PRN pain meds given as prescribed. Pt seen and examined by Dr Amador this AM- a/w cultures. Still a/w discharge disposition for pt, possibly on Friday. To continue monitoring patient.
[2020-09-09 20:00] VITALS: BP 115/68; BP 162/94
--- NOTE | 2020-09-09 22:15 | NUR ---
PT LYING IN BED. TURNED FOR COMFORT. SUPRAPUBIC CATH WELL PURE WICK IN PLACE. OXY IR PROVIDING PAIN RELIEF. PLAN TO TRANSFER TO 4S THIS SHIFT. RESTING COMFORTABLY. NO NEEDS VOICED. CALL LIGHT WITHIN REACH. FREQUENT OBSERVATION.
--- NOTE | 2020-09-10 02:23 | NUR ---
PT WAS TRANSFERRED TO THE UNIT FROM IN A STABLE CONDITION.PT HAS WOUND TO HER COCCYX AND L GREAT TOE.COLOSTOMY IN PLACE TO HER LUQ.PT HAS A SUPRAPUBIC CATH AND STILL VOIDS.PRAFO BOOTS TO HER BLE.PT REPOSITIONED PER HER REQUEST.PT SLEEPING ON HER BED AT THIS TIME.CALL LIGHT WITHIN REACH.
[2020-09-10 07:45] VITALS: BP 147/95
--- NOTE | 2020-09-10 10:26 | NUR ---
A #4F POWER INJECTABLE MIDLINE WAS PLACED PER HOSPITAL POLICY. LINE WAS TRIMMED TO 15CM. ADVANCED WITHOUT DIFFICULTY. RELEASED FOR USE
--- NOTE | 2020-09-10 11:09 | NUR ---
ASSUMED PT CARE THIS AM. PT IS ALERT & ORIENTED X4. PT IS TURN Q2H. CALLED PT TO PLACED AN IV THIS AM. PT HAS IV SITE ON L UA MIDLINE. EMPTY COLOSTOMY THIS AM. DID WOUND CARE FOR PT L GREAT TOE AND L ISCHIAL TUBEROSITY. PT IS ACCUCHECK ACHS. PT HAS A PREGO BOOTS. PT HAS SUPRAPUBIC CATH AND EXTERNAL CATH IN PLACE. PT ON THE BED WATCHING TV, BED ON THE LOWEST POSITION, SIDE RAILS UP, AND CALL LIGHT WITHIN REACH. WILL CONTINUE TO MONITOR PT. FOLLOW POC.
[2020-09-10 16:25] VITALS: BP 158/94
[2020-09-10 22:00] VITALS: BP 136/82
[2020-09-11 04:35] VITALS: BP 151/92
--- NOTE | 2020-09-11 04:51 | NUR ---
RECIEVED CARE OF THIS PATIENT AT 1900. PATIENT ALERT AND ORIENTED X4. HAS PROLAPSED COLOSTOMY AND A SUPRAPUBIC CATH. DENIES PAIN. ACCUCHECK WAS 242, RECEIVED 4 UNITS LISPRO INSULIN. SLEPT MOST OF NIGHT.
[2020-09-11 06:10] LABS: HEMATOCRIT 23.9 % (37.0-47.0); HEMOGLOBIN 7.4 gm/dL (12.0-15.0); MCH 20.8 pg (26.0-34.0); MCHC 30.9 g/dL (28.0-37.0); MCV 67.3 fL (80.0-100.0); RBC 3.55 mil/uL (4.20-5.00); RDW 18.6 % (10.5-14.5); WBC 9.5 thou/uL (4.0-11.0)
[2020-09-11 06:39] LABS: CALCIUM 9.1 mg/dL (8.5-10.1); CREATININE 0.8 mg/dL (0.6-1.0); POTASSIUM 3.4 mmol/L (3.5-5.1)
[2020-09-11 07:30] VITALS: BP 158/79
--- NOTE | 2020-09-11 09:13 | NUR ---
OSTOMY CARE; ALERT, COOPERATIVE, VERY PLEASANT, POUCH LOOSE, CHANGED USING BARBARA 2PIECE SYSTEM, STOMA SLIGHTLY PROLAPSED, LARGE AMT FORMED BROWN STOOL NOTED, PERISTOMAL SKIN INTACT, STOMA PINK, VIABLE, PT STATES SHE CAN 'PUSH STOMA BACK IN IF OUT TOO FAR", SUPPLIES AT BS, WILL CONT TO FOLLOW RECOMMENDATIONS; CHANGE POUCH Q 3-5 DAYS AND PRN, EMPTY PRN BRICKLAYER HELPER AWARE
--- NOTE | 2020-09-11 10:10 | NUR ---
ASSUMED PT CARE THIS AM. PT IS ALERT & ORIENTED X4. PT HAS IV SITE ON L UA MIDLINE. PT HAS COLOSTOMY LUQ AND HAD A BOWEL MOVEMENT TODAY. PT HAS SUPRAPUBIC CATH AND EXTERNAL CATH ON BUT STILL LEAKING AND INFORMED DR THIS AM. DID WOUND CARE ON L GREAT TOE AND L ISCHIAL TUBEROSITY. PT IS ACCUCHECK ACHS. PT IS ON ROOM AIR. PT HAS PREGO BOOTS AND TURN Q2H. PT ON THE BED WATCHING TV, BED ON THE LOWEST POSITION, SIDE RAILS UP, CALL LIGHT WITHIN REACH. WILL CONTINUE TO MONITOR PT. FOLLOW POC.
--- NOTE | 2020-09-11 11:51 | NUR ---
CM LFT VM FOR ADMISSION COORD RE ADMISSION STATUS FOR PT. [phone]
--- NOTE | 2020-09-11 13:18 | NUR ---
hima lft a second message for celso as pt asked if she would be leaving today and if angi as started insur auth process. pt ok with going to a different facility if angi is not accepting.
[2020-09-11 16:32] VITALS: BP 151/76
[2020-09-11 19:18] VITALS: BP 179/80
[2020-09-12 04:53] VITALS: BP 167/92
[2020-09-12 07:25] VITALS: BP 160/82
--- NOTE | 2020-09-12 08:35 | NUR ---
PT AOX4. PT REPORTS 7/10 PAIN IN LLE AND RIGHT FOOT. PT RECEIVING SCHEDULED PO LYRICA TID AND PRN PO OXYCODONE Q6HR. PT DENIES SOB WHILE ON ROOM AIR. PT NOTED TO HAVE SOB WITH EXERTION. PT TOLERATING PO INTAKE OF FLUIDS AND CARB CONTROLLED DIET WITHOUT ISSUE. PT WITHOUT NAUSEA OR EMESIS. COLOSTOMY INTACT, POUCH CHANGED, STOMA PINK AND PROLAPSED. ONCALL GRIDDLE ATTENDANT NOTIFIED, ADVISED TO MONITOR FOR DISCOMFORT AND INFORM NEXT SHIFT. SUPRAPUBIC CATHETER IN PLACE, PATENT, NO LEAKAGE NOTED, PUREWICK IN PLACE TO MEASURE IF LEAKAGE OCCURRED. PT RESTING IN BED THROUGHOUT SHIFT, FREQUENT REPOSITIONING ENCOURAGED. PT REFUSING HEEL PROTECTORS AND INTERMITTENTLY REFUSING POSITION CHANGES. PT BLE ELEVATED ON PILLOW, LOW AIR LOSS MATTRESS REMAINS IN PLACE. PT WITH TREMORS, REPORTING NUMBNESS IN RLE. CAPILLARY REFILL LESS THAN 3SEC IN ALL EXTREMITIES. PT ENCOURAGED TO NOTIFY STAFF FOR ALL NEEDS, CALL LIGHT WITHIN REACH, BED ALARM ON, BED LOCKED IN LOWEST POSITION, FREQUENT MONITORING WILL CONTINUE.
--- NOTE | 2020-09-12 12:26 | NUR ---
on-going assessment: CM REVIEWED CHART. CM SPOKE WITH [facility] WHO REPORTS THEY WILL NOT HAVE BED UNTIL NEXT WEEK. ATTENDING STATING PT IS MEDICALLY STABLE FOR SNF. [facility] ARCHER CAME TO DO A BEDSIDE EVAL AND CAN ACCEPT PATIENT FOR SNF PENDING INSURANCE AUTH. THEY HAVE SUBMITTED FOR INSURANCE AUTH AND CM FAXED UPDATED CLINICAL. AWAITING DETERMINATION FROM INSURANCE AT THIS TIME. IF AUTH IS APPROVED [facility] WILL FURTHER WORK WITH PATIENT ABOUT FINISHING MEDICAID JENNY PROCESS AND SHE EVENTUALLY WANTS TO GO LTC MEDICAID PENDING SOMEWHERE. CM WILL CONTINUE TO FOLLOW AND AWAIT INPUT FROM [facility].
[2020-09-12 16:30] VITALS: BP 173/91
--- NOTE | 2020-09-12 17:28 | NUR ---
PT ASSESSED AT START OF SHIFT. HAPPY MOOD. EATING AND DRINKING WELL. LT GREAT TOE WOUND DRIED. BETADINE APPLIED. HAVING LIQUID STOOL THROUGH COLOSTOMY. GOOD URINE OUTPUT. THERAPY HERE TO WORK W/ PT TODAY. AWAITING TO GO TO REHAB FACILITY.
--- NOTE | 2020-09-12 18:30 | NUR ---
PT ASSESSED AT START OF SHIFT. IN GOOD SPIRITS. TOE HEALING. SUPRAPUBIC CATHETER CHANGED PER RN AND IS NO LONGER LEAKING. COLOSTOMY WORKING WELL. EATING AND DRINKING WELL. PAIN MEDS HELPING CHRONIC PAIN.
[2020-09-12 19:09] VITALS: BP 163/92
[2020-09-13 04:27] VITALS: BP 187/104
--- NOTE | 2020-09-13 05:11 | NUR ---
RECEIVED CARE OF THIS PATIENT AT 1900. PATIENT ALERT AND ORIENTED X4. REMAINS ON BEDREST AT THIS TIME. ACCUCHECK WAS 236, 4 UNITS OF LISPRO GIVEN. IV FLUIDS IN FUSING IN LOPEZ MIDLINE PROLASPED COLOSTONY IS PINK. SUPRAPUBIC WITH YELLOW URINE. C/P PAIN, MED GIVEN. SLEPT MOST OF NIGHT.
[2020-09-13 07:10] VITALS: BP 191/93
--- NOTE | 2020-09-13 11:40 | NUR ---
ON-GOING ASSESSMENT: CM REVIEWED CHART. CM FAXED ALL CLINICAL/UPDATED CLINICAL TO [employer] IN ATTEMPTS TO EXPEDITE THE AUTH PROCESS. STILL AWAITING INSURANCE AUTH AT THIS TIME [facility] GUERRERO SPOKE WITH GIANNI CHEEMA FROM [facility] AND STILL AWAITING AUTH. CM WILL CONTINUE TO FOLLOW.
--- NOTE | 2020-09-13 12:03 | NUR ---
ASSUMED PT CARE THIS AM. PT IS ALERT & ORIENTED X4. PT HAS IV SITE ON L UA MIDLINE RUNNING NS @75ML/HR. PT HAS COLOSTOMY AT [facility]. PT HAS SUPRAPUBIC CATH AND EXTERNAL CATH ON. DID WOUND CARE AND TOOK A WOUND PICTURE ON L TOE AND L ISCHIAL TUBEROSITY. PT IS ACCUCHECK ACHS. PT HAD A HIGH BP AND INFORM DR. GIVEN BP MEDICATION ORDERED. PT ON THE BED, BED ON THE LOWEST POSITION, SIDE RAILS UP, CALL LIGHT WITHIN REACH. WILL CONTINUE TO MONITOR PT. FOLLOW POC.
[2020-09-13] MEDS ORDERED: AMOX TR-K CLV1 EAC4 PO (12:15)
[2020-09-13] MEDS ORDERED: IRON325 PO (12:16)
--- NOTE | 2020-09-13 12:53 | NUR ---
on-going assessment: CM REVIEWED CHART AND SPOKE WITH LIASON FROM [facility] WHO REPORTS THEY NOW HAVE INSURANCE AUTH TO ACCEPT PT TO SNF TODAY. CM NOTIFIED PATIENT AND BEDSIDE RN. CHART COPY WAS ORDERED. CM FAXED DISCHARGE ORDERS TO FACILITY AND CONFIRMED THEY RECEIVED THEM. CM ALSO FAXED NEGATIVE COVID TEST. CM NOTIFIED PATIENTS DAUGHTER VIA VM. PT REPORTS NO FURTHER NEEDS FROM AT THIS TIME. TRANSPORTATION IS ARRANGED FOR 1500. BEDSIDE RN AND PATIENT AWARE. CASE CLOSED.
[2020-09-13 16:23] VITALS: BP 170/97
== END 2020-09-13 16:47 | DRG 604 ==
LOC: ER 12:26 → EROBS 17:56 → 4S 17:56 → 4W 20:24 → 4S 09-09 23:35
PROVIDERS: Nurse Practitioner; Physician Assistant; ADMIT Hospitalist; ATTEND Hospitalist
PROC: 05HC33Z Insertion of Infusion Device into Left Basilic Vein, Percutaneous Approach (ICD-10-PCS; principal; 2020-09-10)
DX: S91.105A Unspecified open wound of left lesser toe(s) without damage to nail, initial encounter (principal); L89.154 Pressure ulcer of sacral region, stage 4; L89.223 Pressure ulcer of left hip, stage 3; N39.0 Urinary tract infection, site not specified; E44.0 Moderate protein-calorie malnutrition; M31.9 Necrotizing vasculopathy, unspecified; M19.90 Unspecified osteoarthritis, unspecified site; Z20.822 Contact with and (suspected) exposure to COVID-19; G89.29 Other chronic pain; M54.9 Dorsalgia, unspecified; E11.42 Type 2 diabetes mellitus with diabetic polyneuropathy; Z96.653 Presence of artificial knee joint, bilateral; E03.9 Hypothyroidism, unspecified; I10 Essential (primary) hypertension; I48.0 Paroxysmal atrial fibrillation; Z74.1 Need for assistance with personal care; Z60.2 Problems related to living alone; Z96.0 Presence of urogenital implants; R53.81 Other malaise; D50.9 Iron deficiency anemia, unspecified; I87.8 Other specified disorders of veins; M48.061 Spinal stenosis, lumbar region without neurogenic claudication; Z90.49 Acquired absence of other specified parts of digestive tract; Z93.3 Colostomy status; Z68.33 Body mass index [BMI] 33.0-33.9, adult; X58.XXXA Exposure to other specified factors, initial encounter; Y93.89 Activity, other specified; Y92.89 Other specified places as the place of occurrence of the external cause; Y99.8 Other external cause status
CPT/HCPCS: 10040; 10195; 27000

== ENCOUNTER 2020-12-03 16:00 | Inpatient (IN) | payer OTHER ==
[~2020-12-03] VITALS: Ht 144.8 cm; Wt 79.5 kg
--- NOTE | ~2020-12-03 | EMS ---
[address] [address] EMS Patient Care Report Name: ZOYA BAZZI Room #: REG ANANTH Dominguez#: [id number] Admission: 12/03/20 Attend Phys: Discharge: Date of : 38 Report #: [id number] THIS REPORT FOR: //name// Report Transmitted: 12/03/2020 15:55 EMS Care Summary [place], [place]/[facility] Incident [id number] @ 12/03/2020 15:18 Incident Location [address] [place] [address] Patient ZOYA BAZZI Female, 80 Years 1940 Patient Address [address] [place] [address] Patient History Diabetes,Hypertension (HTN),Neuropathy, Patient Allergies No known allergies, Patient Medications Amlodipine, Hydrocodone, Lyrica, Metoprolol, Insulin, Chief Complaint DIZZINESS/ WEAKNESS/ NAUSEA Disposition Transported No Lights/[place] Reason Diabetic Problem Transported To [facility] Narrative UPON ARRIVAL PT SITTING UPRIGHT IN WHEELCHAIR CONSCIOUS AND ALERT. PT STATES SHE SUDDENLY BEGAN FEELING WEAK, DIZZY AND LIKE EVERYTHING WAS GOING TO COME UP. FAMILY THOUGHT PT'S SUGAR WOULD BE LOW BUT WAS 134. PT ALSO C/O L LEG PAIN [address] [address] EMS Patient Care Report Name: ZOYA BAZZI Room #: REG ANANTH Dominguez#: [id number] Admission: 12/03/20 Attend Phys: Discharge: Date of : 38 Report #: [id number] DUE TO NEUROPATHY. B/P FOUND TO BE HYPOTENSIVE. PT NORMALLY IN [facility] BUT GOT A PASS FOR TODAY. PT WASN'T ALLOWED TO TAKE HER NORMAL AMOUNT OF PAIN MEDS SINCE SHE WAS LEAVING FOR THE DAY. PT LIFTED TO [facility] AND TRANSPORTED TO [facility]. Initial Vitals @15:35P: 106,BP: 105/68,[place] Suspected: false @15:29P: 108,SpO2: 99, @15:40P: 107, @15:45P: 43,CO: 0,SpO2: 98, @15:51P: 101,R: 20,BP: 100/60,GCS: 15,CO: 1,SpO2: 97,Revised Trauma: 12, @15:27P: 103,R: 20,BP: 74/55,Pain: 10/10,GCS: 15,Glucose: 134,CO: 0,SpO2: 97,Revised Trauma: 10, Assessments @15:25MENTAL:Person Oriented,Time Oriented,Place Oriented,Event Oriented,SKIN:HEENT:Head/Face: No Abnormalities,Neck/Airway: No Abnormalities,LUNG SOUNDS:General: Nausea,Left Upper: No Abnormalities,Right Upper: No Abnormalities,Left Lower: No Abnormalities,Right Lower: No Abnormalities,ABDOMEN:General: Nausea,Left Upper: No Abnormalities,Right Upper: No Abnormalities,Left Lower: No Abnormalities,Right Lower: No Abnormalities,PELVIS//GI:EXTREMITIES:Left Arm: No Abnormalities,Right Arm: No Abnormalities,Left Leg: No Abnormalities,Right Leg: No Abnormalities,PULSE:Radial: 2+ Normal,NEURO:No Abnormalities, Impression Dizziness Procedures @15:4012-Lead ECGResponse: UnchangedSucceeded@15:25ALS AssessmentResponse: UnchangedSucceeded@15:45Saline Lock 0cc (20 ga) Site: Antecubital-LeftResponse: UnchangedFailed@15:46Saline Lock 10cc (20 ga) Site: Hand-RightResponse: UnchangedSucceeded@15:383-Lead ECGResponse: UnchangedSucceeded Timeline 15:17,Call Received 15:17,Dispatch Notified 15:18,Dispatched 15:19,En Route 15:23,On Scene 15:24,At Patient 15:25,ALS Assessment,Response: UnchangedSucceeded, 15:27,BP: 74/55 M,PULSE: 103,RR: 20 R,SPO2: 97 Ox,ETCO2: ,B,PAIN: 10,GCS: 15, 15:29,BP: / M,PULSE: 108,RR: R,SPO2: 99 Ox,ETCO2: ,BG: ,PAIN: ,GCS: , 15:35,BP: 105/68 M,PULSE: 106,RR: R,SPO2: Ox,ETCO2: ,BG: ,PAIN: ,GCS: , 15:38,3-Lead ECG,Response: UnchangedSucceeded, [facility] [address] [place] [address] EMS Patient Care Report Name: ZOYA BAZZI Room #: ESTEBAN Dominguez#: [id number] Admission: 12/03/20 Attend Phys: Discharge: Date of : 38 Report #: [id number] 15:40,12-Lead ECG,Response: UnchangedSucceeded, 15:40,BP: / M,PULSE: 107,RR: R,SPO2: Ox,ETCO2: ,BG: ,PAIN: ,GCS: , 15:45,BP: / M,PULSE: 43,RR: R,SPO2: 98 Ox,ETCO2: ,BG: ,PAIN: ,GCS: , 15:45,Saline Lock 0cc 20 ga Site: Antecubital-Left,Response: UnchangedFailed, 15:46,Saline Lock 10cc 20 ga Site: Hand-Right,Response: UnchangedSucceeded, 15:48,Depart Scene 15:51,BP: 100/60 M,PULSE: 101,RR: 20 R,SPO2: 97 Ox,ETCO2: ,BG: ,PAIN: ,GCS: 15, 15:55,At Destination 16:11,Call Closed Disclaimer v1.1 Copyright 2020 [employer] This EMS Care Summary contains data elements from the applicable legal record (which may be displayed differently). It is designed to provide pertinent information for the following purposes: continuity of care, clinical quality, and state data reporting. The complete legal record is available to ED staff and administrators of the receiving hospital in [facility]'s Patient Tracker. All data is provided "as is."
[2020-12-03 16:00] VITALS: BP 120/78
[~2020-12-03 16:00] MED LIST changes: +AMOX TR-K CLV1 EAC4 PO
[2020-12-03 16:52] LABS: URINE BILIRUBIN NEGATIVE (Negative); URINE BLOOD 1+ (Negative); URINE CLARITY CLEAR; URINE COLOR YELLOW; URINE GLUCOSE-RANDOM* NEGATIVE (Negative); URINE KETONES NEGATIVE (Negative); URINE LEUKOCYTES-REFLEX 3+ (Negative); URINE NITRITE-REFLEX POSITIVE (Negative); URINE PROTEIN (DIPSTICK) 1+ (Negative); URINE SPECIFIC GRAVITY <= 1.005 (1.005-1.035); URINE UROBILINOGEN 0.2 E.U./dl (0.2-1.0)
[2020-12-03 17:06] LABS: CASTS None Seen /LPF (None Seen); SQUAMOUS 0-3 Few /LPF (0-3)
[2020-12-03 17:08] LABS: URINE WBC-REFLEX 0-5 Rare /HPF (0-5)
[2020-12-03 17:09] LABS: AMORPHOUS PHOSPHATES Few /LPF (None Seen); BACTERIA-REFLEX >30 Many /HPF (None Seen); TRIPLE PHOSPHATE CRYSTALS 0-3 Few /LPF (None Seen); URINE RBC 1-2 Rare /HPF (NONE SEEN)
[2020-12-03 17:47] LABS: ABSOLUTE NEUTROPHILS 14.7 thou/uL (1.4-8.2); BASOPHILS 0.5 % (0.0-2.0); EOSINOPHILS 1.1 % (0.0-3.0); HEMATOCRIT 28.9 % (37.0-47.0); HEMOGLOBIN 9.4 gm/dL (12.0-15.0); LYMPHOCYTES 6.6 % (24.0-44.0); MCHC 32.5 g/dL (28.0-37.0); MCV 76.9 fL (80.0-100.0); MONOCYTES 8.2 % (1.0-8.0); PLATELET COUNT 546 thou/uL (150-400); POLYS 83.6 % (36.0-66.0); RBC 3.76 mil/uL (4.20-5.00); RDW 25.7 % (10.5-14.5); WBC 17.5 thou/uL (4.0-11.0)
[2020-12-03 18:10] LABS: ANION GAP 12 mmol/L (7-16); BUN 23 mg/dL (7-18); CALCIUM 9.6 mg/dL (8.5-10.1); CHLORIDE 105 mmol/L (98-107); CO2 22 mmol/L (21-32); CREATININE 0.9 mg/dL (0.6-1.0); GLUCOSE 106 mg/dL (74-106); POTASSIUM 4.2 mmol/L (3.5-5.1); SODIUM 139 mmol/L (136-145)
[2020-12-03 18:15] LABS: ALBUMIN 2.5 g/dL (3.4-5.0); SGOT 21 U/L (15-37); SGPT 22 U/L (14-59); TOTAL BILIRUBIN 0.2 mg/dL (0.2-1.0); TOTAL PROTEIN 7.4 g/dL (6.4-8.2); TROPONIN-I <0.06 ng/mL (<0.06)
--- NOTE | 2020-12-03 18:52 | EKG ---
[facility] [employer] [place] [address] ELECTROCARDIOGRAM REPORT Name: ZOYA BAZZI Room #: ESTEBAN Dominguez#: [id number] Admission: 12/03/20 Attend Phys: Discharge: Date of : 38 Report #: [id number] [facility] ED Test Date: 2020-12-03 Test Time: 17:03:54 Pat Name: ZOYA BAZZI Department: Room: Gender: F Closet Builder: sonja : 1940 Requested By: Bhavik Church Order Number: [id number] MD: Larry Benitez Measurements Intervals [place] Rate: 105 P: -46 NJ: 130 QRS: -26 QRSD: 71 T: -16 QT: 343 QTc: 454 Interpretive Statements Sinus tachycardia Atrial premature complexes in couplets Abnormal R-wave progression, late transition Left ventricular hypertrophy Borderline T abnormalities, diffuse leads Compared to ECG 08/26/2020 10:25:06 Left ventricular hypertrophy now present T-wave abnormality still present Electronically Signed On 12-03-2020 18:52:30 CDT by Larry Benitez [email or web address] <ELECTRONICALLY SIGNED> By: Larry Benitez MD, [facility] 12/03/20 [facility]2 1703 170 Larry Benitez MD, [facility] /EPI
[2020-12-03 21:13] VITALS: BP 120/78
[2020-12-03 21:27] VITALS: BP 155/95
[2020-12-03 21:27] LABS: ANISOCYTOSIS 3+
[2020-12-03 21:28] LABS: POLYCHROMASIA 1+
[2020-12-03 22:00] VITALS: BP 123/80
[2020-12-03 22:16] VITALS: BP 123/80
--- NOTE | 2020-12-04 01:28 | NUR ---
PATIENT ARRIVED AT THE UNIT AT APPROX 2200. PATIENT A/OX4. C/O PAIN ON JESUS LOWER EXTREMITIES. PAIN MEDS GIVEN ORDER. AFEBRILE. TACHYCARDIC OTHERWISE VSS. TUNNELING PRESSURE ULCER ON LEFT BUTTOCK. COLOSTOMY BAG. SUPRAPUBIC CATHETER IN PLACE. DENIES SO, NV. PROVIDER AT THE BEDSIDE. DENIES NEEDS. WILL KEEP MONITORING.
[2020-12-04 05:33] VITALS: BP 144/93
[2020-12-04 08:01] VITALS: BP 116/61
[2020-12-04] MEDS ORDERED: NITROFURANTOIN50 M2 PO (09:02)
--- NOTE | 2020-12-04 14:58 | NUR ---
Triggered d/t wounds. Noted with chronic decubitus ulcers, hx osteomyelitis. Dx HTN, HLD, A-fib, DM, anemia, spinal stenosis. StgIV to Lt ischial tuberosity, resolved stg IV sacral wound s/p flap, closed wound to L great toe. Colostomy status. Physician documented moderate protein-calorie malnutrition, RD to defer dx to physician. Pt noted with stable weight and even slight weight gain from UBW, stated as 150#. Current weigh 167#. Pt attributes the gain to the ice cream they serve at her facility. No c/o swallowing issues, chewing difficulty with tough meats. Only likes white meat chicken. Good appetite reported. Pt requests glucerna BID and agreeable to adding Sánchez BID for increased needs r/t wound healing. Low nutrition risk at this time.
[2020-12-04 16:03] VITALS: BP 125/72
--- NOTE | 2020-12-04 17:11 | NUR ---
RN ASSUMED PT'S CARE AT 0700AM, PT IS A&OX3 ( PERSON , PLACE AND TIME), PT IS CONTINUING IV ABX , IV FLUID AND WOUND CARE , PT'S VS ARE STABLE, PT 'S PAIN CAN CONTROL , PT NEEDS HELP ADL.
[2020-12-04 19:05] VITALS: BP 134/82
[2020-12-05 04:16] VITALS: BP 146/85
--- NOTE | 2020-12-05 06:28 | NUR ---
PT RESTING QUIETLY PRESENTLY. NO S/S DISTRESS. NO CHANGES IN ASSESSMENT. CALL RESULTS OF GRAM = blood cx to STEPDOWN NURSE. NO ORDERS GIVEN.
[2020-12-05 07:27] VITALS: BP 143/78
[2020-12-05 09:20] LABS: HEMATOCRIT 30.4 % (37.0-47.0); HEMOGLOBIN 9.3 gm/dL (12.0-15.0); MCH 24.1 pg (26.0-34.0); MCHC 30.6 g/dL (28.0-37.0); MCV 78.6 fL (80.0-100.0); RBC 3.86 mil/uL (4.20-5.00); RDW 25.2 % (10.5-14.5); WBC 11.9 thou/uL (4.0-11.0)
--- NOTE | 2020-12-05 11:50 | HC ---
[facility] [place] [address] CONSULTATION Name: ZOYA BAZZI Room #: 364-P ADM IN M.R.#: [id number] Admission: 12/03/20 Attend Phys: Susan Lazar Discharge: Date of : 39 Report #: [id number] THIS REPORT FOR: cc: Daljit Messina,John Lee MD ~ DOC #: [id number] John Kuhn MD DATE OF SERVICE: 12/04/2020 CHIEF COMPLAINT: Left ischial pressure ulceration. HISTORY OF PRESENT ILLNESS: This is an 80-year-old female patient well known to us with a history of a stage IV sacral pressure ulceration, status post flap closure and a more recent development of a stage IV left ischial pressure ulcerations. She has been admitted to the hospital with some increasing confusion and sepsis, likely urinary source. The patient is a little bit confused today. Denies significant pain. She will normally recognize myself; Alana, our wound care nurse, is a little bit slow in recognizing any of us. She is denying pain at present. PAST MEDICAL HISTORY: Positive for type 2 diabetes mellitus, hypertension, paroxysmal atrial fibrillation, hypothyroidism, peripheral neuropathy, stage IV pressure ulceration, status post flap closure and stage III/IV pressure ulcers of the left ischial tuberosity. SOCIAL HISTORY: Positive for occasional alcohol use. She has never been a smoker. FAMILY HISTORY: Noncontributory. MEDICATIONS: Include atorvastatin, Xarelto, amlodipine, Roxicodone, insulin Toujeo, Glucophage, Synthroid, Centrum Silver. ALLERGIES: No known drug allergies. REVIEW OF SYSTEMS: CONSTITUTIONAL: The patient denies fever, chills or weight loss. NEUROLOGICAL: The patient denies focal weakness. EYES: The patient denies visual changes, redness or drainage. ENT: The patient denies earache, nasal drainage, sore throat. CARDIOVASCULAR: No chest pain, palpitations, diaphoresis. PULMONARY: Denies cough or shortness of breath. GASTROINTESTINAL: No nausea, vomiting, diarrhea or abdominal pain. ORTHOPEDIC: The patient is aware of the left ischial ulceration and is concerned about her toes as well. [facility] [address] [place] [address] CONSULTATION Name: ZOYA BAZZI Room #: 364-P [facility] IN M.R.#: [id number] Admission: 12/03/20 Attend Phys: Susan Lazar Discharge: Date of : 39 Report #: [id number] Others systems in a 14-point review of systems are negative. PHYSICAL EXAMINATION: VITAL SIGNS: At this time include temperature 36.9, pulse 99, blood pressure 116/61, respiratory rate 18. GENERAL: This is a chronically ill-appearing female patient who appears to be a little bit confused, but in no acute distress. HEENT: Head is normocephalic. Nose and throat are clear. NECK: Supple. LUNGS: Clear. HEART: Irregular. ABDOMEN: Soft, nontender. EXTREMITIES: Previous sacral ulceration with evidence of previous flap closure, remains intact. She has stage IV pressure ulceration to the left ischium. It appears to have contracted and appears a bit smaller and is relatively clean. I am able to palpate bone in the deep base, does not appear to be overtly infected. Toes are intact. There are some areas of discoloration, but no open ulceration. NEUROLOGIC: The patient is a little bit confused. She appears to be moving symmetrically. LABORATORY DATA: Include white blood cell count 17.5 with a hemoglobin of 9.4, sodium 139, potassium 4.2, chloride 105, CO2 22, BUN 23, creatinine 0.9, glucose 106. Albumin is low at 2.5. Urinalysis positive for blood and protein, 3+ leukocyte esterase, greater than 30 bacteria. CLINICAL IMPRESSION: 1. Stage IV pressure ulcer of the left ischial tuberosity. 2. Stage IV pressure ulcer of the sacrum, status post flap closure, doing well. 3. Sepsis, likely urinary source. 4. Type 2 diabetes mellitus. 5. Hypertension. 6. Paroxysmal atrial fibrillation. 7. Hypothyroidism. 8. Severe peripheral neuropathy. RECOMMENDATIONS: At this point in time, we will recommend 1/4 strength Dakin's moist gauze packing to the left ischial pressure ulceration. Recommend a lower ____ pump and q. 2 hour turning and positioning, aggressive nutritional support. I do not favor aggressive surgical intervention at this time. We will continue to follow. She will continue with medical management of her chronic medical issues, antibiotics for the current urinary tract infection and sepsis picture. I appreciate being asked to see her in consultation. John Kuhn MD [address] [address] CONSULTATION Name: ZOYA BAZZI Room #: 364-P ADM IN M.R.#: [id number] Admission: 12/03/20 Attend Phys: Susan Lazar Discharge: Date of : 39 Report #: [id number] SLICK/NORY/ARTUR <ELECTRONICALLY SIGNED> By: John Kuhn MD 12/05/20 1150 1044 20 John Kuhn MD /nt
[2020-12-05 15:31] VITALS: BP 139/82
--- NOTE | 2020-12-05 16:46 | NUR ---
INITIAL ASSESSMENT: Received consult for discharge needs. PRAVIN reviewed chart and spoke with nursing and attending physician. Pt was admitted due to UTI/sepsis/sacral ulcer. SW received call from Maged at [facility], who states that pt has been in their facility since 10/24. Pt was admitted as skilled and then transitioned to LTC. The facility SW has been working with pt and family on moving to an alternate facility. Maged states they are able to accept pt back if needed. PRAVIN met with pt, dtr and granddtr at bedside. Introduced role of PRAVIN. Pt is alert/orientated. Pt states that prior to being at [facility], she was living in an apt at [facility]. Pt had a w/c and stefanie lift. Pt has also been to [facility] and [facility]. Pt has used [facility] in the past. Pt's PCP is Dr. Messina. Pt and family interested in an alternate facility upon discharge. SW to provide pt/family with in-network providers. PRAVIN requested PT/OT dipesh. PRAVIN is following to assist as needed with discharge planning.
--- NOTE | 2020-12-05 18:40 | NUR ---
RN ASSUMED PT'S CARE AT 0700AM, PT IS A&OX4 , PT IS CONTINUING WOUND CARE AND PAIN MANAGEMENT , PT HAS NEW IV ABX VANCOMYCIN FOR POSITIVE BLOOD CULTURE , PT 'S VS ARE STABLE, PT DENIES SOB AND N/V, PT'S S/P CATHETER AND COLOSTOMY ARE WORKING WELL , PT STILL HAS WEAKNESS , AND PT NEEDS HELP ADL AND CHANGE POSITION.
[2020-12-05 19:58] VITALS: BP 140/69
[2020-12-05 23:37] VITALS: BP 155/82
[2020-12-06 04:32] VITALS: BP 121/68
--- NOTE | 2020-12-06 06:24 | NUR ---
No event tonight. Pt remains stable. Resting well. Pain is adequated control. VSS. Continue working toward goals.
[2020-12-06 07:48] VITALS: BP 125/67
[2020-12-06] MEDS ORDERED: CEFUROXIME500 MG PO (09:52)
[2020-12-06] MEDS ORDERED: TRAMADOL 50 MG50 MG PO (09:59)
[2020-12-06] MEDS ORDERED: REGLAN 5 MG TAB5 MG PO (09:59)
--- NOTE | 2020-12-06 14:04 | NUR ---
PRAVIN reviewed chart and spoke with nursing and attending physician. PT/OT ordered today to evaluate pt. Pt unable to participate due to nausea. PRAVIN met with pt at bedside to discuss post-acute placement. Pt states she will not return to [facility]. PRAVIN provided pt with list of in-network options to review. Pt has been to [facility] and states that she would like to return there if possible. Pt states she might still have an outstanding bill, but is able to pay it if they will accept her back. PRAVIN encouraged pt to review list with family and have another option. Pt verbalized understanding. PRAVIN faxed referral to [facility] and left message for the admissions dept. Awaiting PT/OT evals at this time. PRAVIN is following to assist as needed with discharge planning.
[2020-12-06 20:30] VITALS: BP 125/60
[2020-12-07 05:12] VITALS: BP 120/63
[2020-12-07 07:29] VITALS: BP 110/61
--- NOTE | 2020-12-07 10:09 | NUR ---
OSTOMY CARE NOTE; AWAKE, ALERT, COOPERATIVE, POUCH EDGES LOOSE, NEW POUCH HOLLSITER CUT TO FIT WAFER APPLIED, ADAPT RING UNDER WAFER, STOMA PINK VIABLE BUDDED, SLIGHTLY PROLASED, LOOSE BROWN STOOL NOTED, PERISTOMAL SKIN INTACT, SUPPLIES PLACED AT BS RECOMMENDATIONS; CHANGE POUCH Q 3-5 DAYS AND PRN, EMPTY PRN OTR OWNER OPERATOR AWARE
--- NOTE | 2020-12-07 11:32 | NUR ---
cm faxed therapy notes to [facility] at [phone].
[2020-12-07 15:55] VITALS: BP 104/57
--- NOTE | 2020-12-07 18:32 | NUR ---
assumed care of pt at 0700. pt alert and oriented, complains of pain in BLE. no changes to report. dressing changed per order. waiting on placement.
[2020-12-07 19:55] VITALS: BP 117/70
[2020-12-08 03:50] VITALS: BP 135/65
--- NOTE | 2020-12-08 04:27 | NUR ---
Requested pain med for leg and knee pain. Tramadol given with some relief. She has slept fair during the night. Repositioned for comfort. Dressing on left side wound intact. Bed alarm on for safety. Making some progress towards care plan goals.
[2020-12-08 07:54] VITALS: BP 121/61
--- NOTE | 2020-12-08 11:27 | NUR ---
PRAVIN reviewed chart and spoke [facility] nursing and attending physician. PRAVIN left message for Sudha in admissions at [facility] to follow up on referral to determine if they are able to accept pt for SNF placement. Will need insurance authorization for SNF. Awaiting call back at this time. SW to fax clinical and therapy updates when available. PRAVIN is following to assist as needed with discharge planning.
[2020-12-08 16:32] VITALS: BP 133/62
[2020-12-08 20:37] VITALS: BP 142/86
[2020-12-09 05:00] VITALS: BP 143/78
--- NOTE | 2020-12-09 08:07 | NUR ---
PROGRESS PT A/O X4 FORGETFUL AT TIMES. REPORT NEUROPATHIC PAIN TO BILATERAL LEGS JUMPS GRIMACES AND YELLS OUT WITH SHOOTING PAINS. TAKING TRAMADOL Q4HRS WITH LITTLE EFFECT. VSS, DRESSING TO LEFT BUTTOCK CHANGED MAGDA RED BLOODY DRAINAGE IN SMALL AMOUNT NOTED NO ODOR DETECTED WOUND BED RED AND BEEFY NO SLOUGH TISSUE NOTED, PACKED WITH DAKINS SOAKED GAUZE ORDERED. PRAFO BOOTS IN PLACE PT REPOSITIONED Q2HRS TOLERATED WELL. PLAN TO DISCHARGE TO SNF WHEN PLACEMENT AVAILABLE.
[2020-12-09 08:30] VITALS: BP 143/87
[2020-12-09 09:00] LABS: HEMATOCRIT 24.7 % (37.0-47.0); HEMOGLOBIN 8.4 gm/dL (12.0-15.0); MCH 25.9 pg (26.0-34.0); MCHC 33.9 g/dL (28.0-37.0); MCV 76.2 fL (80.0-100.0); RBC 3.25 mil/uL (4.20-5.00); RDW 23.6 % (10.5-14.5); WBC 9.7 thou/uL (4.0-11.0)
[2020-12-09 15:47] VITALS: BP 123/78
--- NOTE | 2020-12-09 18:25 | NUR ---
RN ASSUMED PT'S CARE AT 0700AM, PT IS A&OX3 ( PERSON, PLACE AND TIME ), PT IS CONTINUING PO ABX, WOUND CARE AND PAIN MANAGEMENT, PT NEEDS HELP MEALS AND ADL, PT'S COLOSTOMY AND S/P CATHETER ARE WORKING, PT'S VS ARE STABLE BY THIS TIME.
[2020-12-09 19:13] VITALS: BP 113/61
--- NOTE | 2020-12-09 21:57 | NUR ---
PT RESTING IN BED WATCHING TV. PT ASKED TO GET READY FOR SLEEP AND PT ASSISTED. [facility] FORGETFUL. PT COMPLIANT WITH MEDS, ASSISTED ONE PILL AT A TIME WITH PUDDING. COLOSTOMY INTACT AND EMPTIED X 2 DUE TO GAS. SUPRAPUBIC CATHETER INTACT. BILAT PRAFO BOOTS AND SCDS. WOUND DRESSING INTACT. REMAINS IN ISOLATION. BED ALARM ON.
[2020-12-10 03:53] VITALS: BP 149/79
[2020-12-10 07:56] VITALS: BP 132/77
[2020-12-10 15:35] VITALS: BP 144/66
--- NOTE | 2020-12-10 19:37 | NUR ---
RN ASSUMED PT'S CARE AT 0700-1900PM, PT IS A&OX4, PT IS CONTINUING PO ABX, WOUND CARE AND PAIN MANAGEMENT, PT'S VS ARE STABLE, PT IS VERY WEAK, PT NEEDS HELP CHANGE POSITION, AND SET UP MEALS,
[2020-12-10 21:15] VITALS: BP 148/80
[2020-12-11 04:25] VITALS: BP 140/68
--- NOTE | 2020-12-11 07:24 | NUR ---
PROGRESS PT A/O X3 REPORTING NEURO PATHETHIC PAIN TO BILATERAL LOWER EXTREMETIES, TAKING TRAMADOL Q4HRS WITH SOME EFFECT. REPOSITIONED Q2HRS AND PRN. PRAFO BOOTS IN PLACE, COLOSTOMY DRAINING BROWN STOOL. SUPRAPUBIC CATHETER INTACT DRAINING LARGE AMOUNTS OF URINE. DRSG TO LEFT BUTTOCK INTACT CONTINUE POC.
[2020-12-11 08:09] VITALS: BP 151/70
[2020-12-11 09:00] VITALS: BP 116/62
--- NOTE | 2020-12-11 11:00 | NUR ---
Nutrition follow up: Pt on ABX for UTI, metformin, SSI. Last BM 12/10. Wt is up 3#. Carb control diet in place, Glucerna BID and Sánchez in place. Intake of meals ~60% avg with breakfast meals being the highest intakes. Intake of supplements >75%. Pt continues to report good appetite. Continues with wounds, wound care following. Remains low nutrition risk with interventions in place.
--- NOTE | 2020-12-11 12:15 | NUR ---
PRAVIN reviewed chart and spoke with nursing and attending physician. Pt is medically stable for discharge to SNF today. [facility] Awaiting insurance authorization at this time. PRAVIN left message for the admissions dept. PRAVIN is following to assist as needed with discharge planning.
[2020-12-11 15:52] VITALS: BP 116/62
--- NOTE | 2020-12-11 18:46 | NUR ---
RN ASSUMED PT'S CARE AT 0700AM, PT IS A&OX4, BUT PT IS FORGETFUL, PT IS CONTINUING PO ABX , PAIN MANAGEMENT, AND WOUND CARE, PT 'S COLOSTOMY AND S/P CATHETER ARE WORKING, PT NEEDS HELP ADL.
[2020-12-11 20:25] VITALS: BP 133/74
[2020-12-12 04:15] VITALS: BP 116/71
[2020-12-12 08:14] VITALS: BP 94/76
--- NOTE | 2020-12-12 09:46 | NUR ---
OSTOMY CARE; AWAKE, ALERT, POUCH EDGES LOOSE, HAS BEEN ON 5 DAYS, CHANGED TODAY USING UltralifeSITER 2 PIECE SYSTEM CUT TO FIT, ADAPT RING APPLIED UNDER THE WAFER, STOMA PINK VIABLE, SLIGHTLY PROLAPSED, LOOSE BROWN STOOL NOTED, PERISTOMAL SKIN INTACT, COOPERATIVE, SUPPLIES PLACED AT BS RECOMMENDATIONS; CHANGE POUCH Q 3-5 DAYS AND PRN, EMPTY PRN YARD COUPLER AWARE
--- NOTE | 2020-12-12 12:53 | NUR ---
PRAVIN reviewed chart and spoke with nursing and attending physician. Pt is medically stable for discharge to [facility] pending insurance auth. PRAVIN left message for the admissions dept at [facility]. Awaiting call back at this time. PRAVIN is following to assist as needed with discharge planning.
[2020-12-12 15:54] VITALS: BP 128/85
--- NOTE | 2020-12-12 16:34 | NUR ---
anticipating d/c to [facility] [phone]. stable for discharge.
--- NOTE | 2020-12-12 19:07 | NUR ---
multiple attempts made to call report to [facility] ([phone]). kept on hold indefinitely. facility made no attempt to call back, even after patient was transported to facility.
== END 2020-12-12 18:30 | DRG 871 ==
LOC: ER 16:00 → EROBS 20:03 → 3W 20:03
PROVIDERS: Physician Assistant; ADMIT Hospitalist; ATTEND Hospitalist
DX: A41.51 Sepsis due to Escherichia coli [E. coli] (principal); L89.324 Pressure ulcer of left buttock, stage 4; L89.154 Pressure ulcer of sacral region, stage 4; T83.511A Infection and inflammatory reaction due to indwelling urethral catheter, initial encounter; E44.0 Moderate protein-calorie malnutrition; S31.000A Unspecified open wound of lower back and pelvis without penetration into retroperitoneum, initial encounter; M54.9 Dorsalgia, unspecified; G89.29 Other chronic pain; E03.9 Hypothyroidism, unspecified; E11.42 Type 2 diabetes mellitus with diabetic polyneuropathy; R53.81 Other malaise; D50.9 Iron deficiency anemia, unspecified; Z96.653 Presence of artificial knee joint, bilateral; I10 Essential (primary) hypertension; E78.5 Hyperlipidemia, unspecified; I48.0 Paroxysmal atrial fibrillation; L97.529 Non-pressure chronic ulcer of other part of left foot with unspecified severity; E11.51 Type 2 diabetes mellitus with diabetic peripheral angiopathy without gangrene; Z20.822 Contact with and (suspected) exposure to COVID-19; X58.XXXA Exposure to other specified factors, initial encounter; Y93.89 Activity, other specified; Y92.89 Other specified places as the place of occurrence of the external cause; Y99.8 Other external cause status; Z68.37 Body mass index [BMI] 37.0-37.9, adult; Y83.8 Other surgical procedures as the cause of abnormal reaction of the patient, or of later complication, without mention of misadventure at the time of the procedure; Z90.49 Acquired absence of other specified parts of digestive tract; Z93.3 Colostomy status; Z79.01 Long term (current) use of anticoagulants; Z79.899 Other long term (current) drug therapy; Z99.3 Dependence on wheelchair; Z79.4 Long term (current) use of insulin
CPT/HCPCS: 10879

== ENCOUNTER 2021-03-09 05:30 | Emergency (ER) | payer OTHER ==
[~2021-03-09] VITALS: Ht 144.8 cm; Wt 77.6 kg
--- NOTE | ~2021-03-09 | EMS ---
[address] [address] EMS Patient Care Report Name: ZOYA BAZZI Room #: REG ANANTH Dominguez#: [id number] Admission: 03/09/21 Attend Phys: Discharge: Date of : 38 Report #: [id number] THIS REPORT FOR: //name// Report Transmitted: 03/09/2021 05:21 EMS Care Summary [facility] Incident [id number] @ 03/09/2021 04:22 Incident Location [address] [place] [address] Patient ZOYA BAZZI Female, 80 Years 1940 Patient Address [address] [place] [address] Patient History Hypertension (HTN),Hyperlipidemia,Gastro-Esophageal Reflux Disease (GERD),Urinary Tract Infection (UTI),Atrial Fibrillation,Anemia,Neuropathy,Sepsis,Back Pain (Chronic),Type 2 Diabetes, Patient Allergies No known allergies, Patient Medications Amlodipine, Atorvastatin, Metoclopramide, Nitrofurantoin, Metoprolol, Metformin, Ferrous Sulfate, Eliquis, Levothyroxine, Humalog, Nystatin, OxyContin, Chief Complaint hypoglycemia Disposition Transported No Lights/[place] Reason Diabetic Problem Transported To [address] [address] EMS Patient Care Report Name: ZOYA BAZZI Room #: REG ANANTH Dominguez#: [id number] Admission: 03/09/21 Attend Phys: Discharge: Date of : 38 Report #: [id number] Narrative Upon arrival pt was lying on bed, presented w/o distress. Upon arrival bg was 77 mgdl. RN reported pt had insulin shot at 23:30 and since then her bg was dropping and the tried to maintain her bg up. RN reported the kitchen was close and there was no food. Pt stated "I do not like their snacks." Facility doctor called and reported to crew the transport decision can be make by pt. Pt stated she wanted to go to the hospital. Pt moved into the stretcher by sheet and then pt moved to the unit. In the unit, pt vitals were monitored and remained stable during transport. At the hospital, pt moved to her assigned bed and then pt care turned over ED nurse. Initial Vitals @04:35P: 86,R: 18,BP: 124/77,Pain: 0/10,GCS: 15,Glucose: 204,SpO2: 99,Revised Trauma: 12, @05:14P: 78,R: 16,BP: 151/98,Pain: 0/10,GCS: 15,Temp: 98.1F,Glucose: 77,SpO2: 99,Revised Trauma: 12, Impression Diabetic Hypoglycemia Timeline 04:20,Call Received 04:20,Psap Call 04:22,Dispatched 04:23,En Route 04:29,On Scene 04:34,At Patient 04:35,BP: 124/77 M,PULSE: 86,RR: 18 R,SPO2: 99 Ox,ETCO2: ,B,PAIN: 0,GCS: 15, 05:13,Depart Scene 05:14,BP: 151/98 M,PULSE: 78,RR: 16 R,SPO2: 99 Ox,ETCO2: ,B,PAIN: 0,GCS: 15, 05:24,At Destination 05:40,Call Closed Disclaimer [email or web address] Copyright 2020 [employer] This EMS Care Summary contains data elements from the applicable legal record (which may be displayed differently). It is designed to provide pertinent information for the following purposes: continuity of care, clinical quality, and state data reporting. The complete legal record is available to ED staff and administrators of the receiving hospital in [employer] Patient Tracker. All data is provided "as is."
[~2021-03-09 05:30] MED LIST changes: +CEFUROXIME500 MG PO; +NITROFURANTOIN50 M2 PO; +REGLAN 5 MG TAB5 MG PO
[2021-03-09 07:04] VITALS: BP 164/91
== END 2021-03-09 07:04 ==
LOC: ER 05:30
DX: E11.649 Type 2 diabetes mellitus with hypoglycemia without coma (principal); M19.90 Unspecified osteoarthritis, unspecified site; E03.9 Hypothyroidism, unspecified; E11.40 Type 2 diabetes mellitus with diabetic neuropathy, unspecified; I48.91 Unspecified atrial fibrillation; I10 Essential (primary) hypertension; Z90.89 Acquired absence of other organs; Z79.891 Long term (current) use of opiate analgesic; Z79.1 Long term (current) use of non-steroidal anti-inflammatories (NSAID); Z79.899 Other long term (current) drug therapy; Z79.4 Long term (current) use of insulin